=== PATIENT | male | born 1965 | race Caucasian/White ===

== ENCOUNTER 2017-02-17 17:52 | Emergency (ER) | payer BC ==
[~2017-02-17] VITALS: Ht 190.5 cm; Wt 103.4 kg
[~2017-02-17 17:52] MED LIST: ASPI81TA28 PO; METO-217 PO; PRLSR20 PO
[2017-02-17 17:55] VITALS: TEMP 37; Ht 190.5 cm; Wt 103.4 kg
[2017-02-17] MEDS ORDERED: SODIUM CHLORIDE 0.9% 1000ML 1,000 ML IV STA (18:12)
--- NOTE | 2017-02-17 18:42 | EMERGENCY ROOM VISIT NOTE ---
History Report prepared by Irasema: Mary Gandhi Under the Supervision of: Dr. Felton Krueger D.O. First contact with patient: 17:58 Chief Complaint: BACK PAIN Stated Complaint: LEFT SIDE, LOWER BACK PAIN History of Present Illness The patient is a 51 year old male who presents to the Emergency Room with complaints of constant back pain starting three days ago. The patient states that he had this back pain before, but not to this extent. The patient states that he drove a go kart with his nephew five days ago and played baseball four days ago. He states that he noticed the pain in the early afternoon three days ago. The patient reports that two days ago he mowed the lawn and the pain was still there. He states that last time it went away with rest and Motrin. He reports that nothing is helping it this time. He states he went to his PCP yesterday who prescribed him medication while continuing with the Motrin. He reports that nothing is touching the pain he has. The patient states that the pain is middle to left and feels deep. He states that it feels like it is from his lower hips to the middle of his ribs. He also complains of a sort of weakness in his legs. He states that sitting for long periods of time makes it worse and standing up makes it worse. He currently rates his pain as a 3/10 in severity. The patient notes that 3 years ago he had x-rays completed that showed issues in his lumbar region, but notes that they did not require surgery. The patient notes that there are random times that he will drive to work and his left leg will be completely "" for 10 to 15 minutes when he tries to get out of the vehicle. The patient denies constipation, numbness, hematuria, and dark urine. The patient notes that he was born with Tetralogy of Fallot, has had his aortic repaired, and a defibrillator installed and removed. He notes that he cannot have an MRI because the leads are still attached. The patient notes that he does not take any blood thinners besides a baby Aspirin daily. Source of History: patient Onset: three days ago Position: back (middle to left) Symptom Intensity: 3/10 Quality: other (radiating) Timing: constant Modifying Factors (Worsening): other (sitting for long periods of time, standing up) Associated Symptoms: + weakness, No urinary symptoms, No numbness Note: The patient complains of the pain being from his hips to the middle of his ribs and that his left leg will go "." The patient denies constipation. Review of Systems See HPI for pertinent positives & negatives. A total of 10 systems reviewed and were otherwise negative. Past Medical & Surgical Medical Problems: (1) History of aortic aneurysm (2) History of placement of internal cardiac defibrillator (3) History of Tetralogy of Fallot (4) Hx of reovl of internal cardiac defibrillator Surgical Problems: (1) History of orthopedic surgery (2) History of tetralogy of Fallot repair (3) Hx of hernia repair (4) Status post rotator cuff repair Family History Cancer Diabetes mellitus FH: heart disease FH: lung disease Gallbladder disease Heart disease Hypertension Lung disease Social History Smoking Status: Never Smoker Alcohol Use: occasionally Drug Use: none Marital Status: Housing Status: lives with family Occupation Status: employed Current/Historical Medications Scheduled Aspirin (Aspirin Ec), 81 MG PO DAILY Metoprolol Succinate (Toprol Xl), 50 MG PO DAILY Omeprazole (Prilosec), 40 MG PO DAILY Prednisone (Prednisone Tab), 40 MG PO DAILY Scheduled PRN Oxycodone Immediate Rel Tab (Roxicodone Ir), 1-2 TAB PO Q4H PRN for Severe Pain Allergies Coded Allergies: No Known Drug Allergy (Verified Allergy, ., 08/14/13) Uncoded Allergies: GENERAL ANESTHESIA (Allergy, Intermediate, COMBATIVE, 03/26/09) Physical Exam Vital Signs Date Time Temp Pulse Resp B/P (MAP) Pulse Ox O2 Delivery O2 Flow Rate FiO2 02/17/17 20:21 62 20 143/91 97 Room Air 02/17/17 19:19 74 20 163/105 98 Room Air 02/17/17 17:55 37.0 71 18 167/98 97 Room Air Physical Exam GENERAL: Patient is awake, alert, and somewhat anxious. Patient appears uncomfortable. EYES: The conjunctivae are clear. The pupils are round and reactive. EARS, NOSE, MOUTH AND THROAT: The nose is without any evidence of any deformity. Mucous membranes are moist tongue is midline NECK: The neck is nontender and supple. RESPIRATORY: Normal respiratory effort is noted there is no evidence of wheezing rhonchi or rales CARDIOVASCULAR: Regular rate and rhythm noted to auscultation. Prominent S2 noted to auscultation. No murmurs noted. GASTROINTESTINAL: The abdomen is soft and nondistended. Bowel sounds are present in all quadrants. Left lower quadrant abdominal pain to palpation, no guarding or rigidity noted. BACK: No midline tenderness to palpation. Range of motion appeared intact. MUSCULOSKELETAL/EXTREMITIES: There is no evidence of gross deformity full range of motion is noted in the hips and shoulders SKIN: There is no obvious evidence of any rash. There are no petechiae, pallor or cyanosis noted. NEUROLOGIC: Patient is awake alert and oriented x3 strength is symmetric patellar reflexes are 2+ bilaterally. Achilles tendon reflexes were 1+ and symmetric, great toe raise was symmetric. Medical Decision & Procedures ER Provider Diagnostic Interpretation: Radiology results as stated below per my review and radiologist interpretation: CT SCAN OF THE ABDOMEN AND PELVIS WITHOUT CONTRAST CLINICAL HISTORY: left flank pain COMPARISON STUDY: No previous studies for comparison. TECHNIQUE: CT scan of the abdomen and pelvis was performed from the lung bases to the proximal femurs. Images are reviewed in the axial, sagittal, and coronal planes. IV contrast was not administered for this examination. CT DOSE: 982.18 mGy.cm FINDINGS: Lower chest: There are mild dependent atelectatic changes present. Liver: The unenhanced liver is normal in size, contour, and attenuation. There is no intrahepatic biliary ductal dilatation. Gallbladder: Cholelithiasis Spleen: Normal in size and attenuation. Pancreas: Unremarkable. Adrenal glands: Unremarkable. Kidneys: There is a punctate nonobstructing lower pole right renal calculus. There is no hydronephrosis. No ureteral or bladder calculi are visualized. Bowel: There are no transition zones indicate bowel obstruction. The appendix appears normal. There is no acute diverticulitis. Peritoneum: There is no intraperitoneal free air or abdominal ascites. Vasculature: The abdominal aorta is normal in course and caliber. Adenopathy: None. Pelvic viscera: The bladder, and pelvic viscera are unremarkable. Skeletal structures: There is a benign femoral herniation pit within the left femoral neck. There is a bone island within the left femoral head. There are subchondral cystic changes within the left acetabulum. 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 There is a grade 1 spondylolisthesis of L5 on S1. IMPRESSION: 1. No evidence of bowel obstruction. No evidence of free air 2. Punctate nonobstructing right renal calculus. No ureteral or bladder calculi identified 3. Cholelithiasis 4. No evidence of acute appendicitis. No evidence of acute diverticulitis. Electronically signed by: Med Pickens M.D. 02/17/2017 7:15 PM Dictated Date/Time: 02/17/2017 7:11 PM Laboratory Results 02/17/17 18:30 Red Blood Count 4.86, Mean Corpuscular Volume 85.6, Mean Corpuscular Hemoglobin 30.2, Mean Corpuscular Hemoglobin Concent 35.3, Mean Platelet Volume 8.7, Neutrophils (%) (Auto) 35.4, Lymphocytes (%) (Auto) 49.4, Monocytes (%) (Auto) 11.8, Eosinophils (%) (Auto) 2.8, Basophils (%) (Auto) 0.3, Neutrophils # (Auto ) 1.38, Lymphocytes # (Auto) 1.92, Monocytes # (Auto) 0.46, Eosinophils # (Auto ) 0.11, Basophils # (Auto) 0.01 02/17/17 18:30 Test 02/17/17 18:15 02/17/17 18:30 Urine Color YELLOW Urine Appearance CLEAR (CLEAR) Urine pH 6.5 (4.5-7.5) Urine Specific [place] 1.017 (1.000-1.030) Urine Protein NEG (NEG) Urine Glucose (UA) NEG (NEG) Urine Ketones NEG (NEG) Urine Occult Blood NEG (NEG) Urine Nitrite NEG (NEG) Urine Bilirubin NEG (NEG) Urine Urobilinogen NEG (NEG) Urine Leukocyte Esterase NEG (NEG) White Blood Count 3.89 K/uL (4.8-10.8) Red Blood Count 4.86 M/uL (4.7-6.1) Hemoglobin 14.7 g/dL (14.0-18.0) Hematocrit 41.6 % (42-52) Mean Corpuscular Volume 85.6 fL (80-100) Mean Corpuscular Hemoglobin 30.2 pg (25-34) Mean Corpuscular Hemoglobin Concent 35.3 g/dl (32-36) Platelet Count 136 K/uL (130-400) Mean Platelet Volume 8.7 fL (7.4-10.4) Neutrophils (%) (Auto) 35.4 % Lymphocytes (%) (Auto) 49.4 % Monocytes (%) (Auto) 11.8 % Eosinophils (%) (Auto) 2.8 % Basophils (%) (Auto) 0.3 % Neutrophils # (Auto) 1.38 K/uL (1.4-6.5) Lymphocytes # (Auto) 1.92 K/uL (1.2-3.4) Monocytes # (Auto) 0.46 K/uL (0.11-0.59) Eosinophils # (Auto) 0.11 K/uL (0-0.5) Basophils # (Auto) 0.01 K/uL (0-0.2) RDW Standard Deviation 38.1 fL (36.4-46.3) RDW Coefficient of Variation 12.2 % (11.5-14.5) Immature Granulocyte % (Auto) 0.3 % Immature Granulocyte # (Auto) 0.01 K/uL (0.00-0.02) Anion Gap 5.0 mmol/L (3-11) Est Creatinine Clear Calc Drug Dose 115.1 ml/min Estimated GFR () 101.3 Estimated GFR (Non- 87.4 BUN/Creatinine Ratio 13.0 (10-20) Calcium Level 9.0 mg/dl (8.5-10.1) Total Bilirubin 0.4 mg/dl (0.2-1) Direct Bilirubin 0.1 mg/dl (0-0.2) Aspartate Amino Transf (AST/SGOT) 19 U/L (15-37) Alanine Aminotransferase (ALT/SGPT) 39 U/L (12-78) Alkaline Phosphatase 58 U/L (45-117) Total Protein 7.0 gm/dl (6.4-8.2) Albumin 4.1 gm/dl (3.4-5.0) Lipase 193 U/L (73-393) Laboratory results per my review. Medications Administered Medications (Trade) Dose Ordered Sig/Tashia Route Start Time Stop Time Status Last Admin Dose Admin Sodium Chloride 1,000 ml @ 999 mls/hr Q1H1M STAT IV 02/17/17 18:12 02/17/17 19:12 DC 02/17/17 18:41 999 MLS/HR Prednisone (PredniSONE TAB) 60 mg NOW STAT PO 02/17/17 20:04 02/17/17 20:05 DC 02/17/17 20:13 60 MG Oxycodone HCl (Roxicodone Immediate Rel 5MG Home Pack) 1 homepack UD ONCE PO 02/17/17 20:15 02/17/17 20:16 DC 02/17/17 20:13 1 HOMEPACK ED Course 1804: The patient was evaluated in room B4B. A complete history and physical examination were performed. 1811: Ordered NSS 1000 ml @ 999 mls/hr IV. 1958: Upon reevaluation, the patient is resting comfortably. I discussed the results and treatment plan with him. He verbalized agreement of the treatment plan. The patient was discharged home. Medical Decision Medication Reconciliation: I attest that I have personally reviewed the patient' s current medications list. Patient was found to have a slightly elevated blood pressure due to circumstances. I do not believe that the patient requires hypertension monitoring. Differential diagnosis: Etiologies such as musculoskeletal, disc herniation, fracture, aortic disease, metastatic disease, cord compression, discitis, infection, renal colic, gastrointestinal, acute exacerbation of chronic back pain, sciatica, cauda equina, as well as others were entertained. The patient is a 51-year-old male who presented to the emergency department for an evaluation of low back pain. The patient states that he's had similar back pain in the past but this back pain appears to be worsened in duration as well as intensity. The patient did not have any decreased patellar or Achilles tendon reflexes. He is able to walk without difficulty. His great toe raise was symmetric. The patient is unable to have an MRI because of previous surgical history. The patient was treated with IV fluids and steroids in the emergency department. He did not wish to have any pain medication. I discussed the patient 's laboratory and radiographic studies with him. I have recommended that he follow-up with his family doctor soon as possible and discussed the possibility that he may or need referral to a specialist for further management. I encouraged him to continue all medications as prescribed and return to the emergency department immediately if symptoms change worsen or the need arises. He did have some lower abdominal tenderness and I was unsure if this represented a kidney stone or possibly diverticulitis. The patient's CAT scan did not reveal signs of this however. The patient's urinalysis was not positive for infection. He was found have a slightly low white blood cell count but I am unsure of the significance at this time. I would recommend that he has this rechecked again with his primary care physician. [place] Drug Monitoring Program Search Results: no issues identified Impression Primary Impression: Musculoskeletal pain Additional Impression: Low back pain Scribe Attestation The scribe's documentation has been prepared under my direction and personally reviewed by me in its entirety. I confirm that the note above accurately reflects all work, treatment, procedures, and medical decision making performed by me. Departure Information Dispostion Home / Self-Care Prescriptions Prednisone (Prednisone Tab) 20 Mg Tab 40 MG PO DAILY, #10 TAB Prov: Felton Krueger, DO 02/17/17 Omeprazole (PRILOSEC) 40 Mg Cap 40 MG PO DAILY, #30 CAP Prov: Felton Krueger, DO 02/17/17 Oxycodone Immediate Rel Tab (ROXICODONE IR) 5 Mg Tab 1-2 TAB PO Q4H Y for Severe Pain, #24 TAB Prov: Felton Krueger, DO 02/17/17 Referrals Sofie Burgess M.D. (PCP) Forms HOME CARE DOCUMENTATION FORM, IMPORTANT VISIT INFORMATION Patient Instructions My [facility] Additional Instructions Call your family to schedule a follow-up appointment. Rest and avoid any strenuous activity. Continue all medications as prescribed. Continue using Tylenol and other [id number] pain medications for mild pain. Discussed the possibility with your family the may require referral to a specialist if symptoms do not improve. Problem Qualifiers Additional Impression: Low back pain Chronicity: acute Back pain laterality: midline Sciatica presence: without sciatica Qualified Codes: M54.5 - Low back pain
[2017-02-17 18:47] LABS: BASO % 0.3 %; BASO ABS # 0.01 K/uL (0-0.2); COMPLETE YES; EOS % 2.8 %; HEMATOCRIT 41.6 % (42-52); IG% 0.3 %; LYMPH % 49.4 %; LYMPH ABS # 1.92 K/uL (1.2-3.4); MEAN CELL VOLUME 85.6 fL (80-100); MEAN CORPUSCULAR HEMOGLOBIN 30.2 pg (25-34); MEAN CORPUSCULAR HGB CONC 35.3 g/dl (32-36); MEAN PLATELET VOLUME 8.7 fL (7.4-10.4); MONO % 11.8 %; NEUT % 35.4 %; PLATELET COUNT 136 K/uL (130-400); RED BLOOD COUNT 4.86 M/uL (4.7-6.1); WHITE BLOOD COUNT 3.89 K/uL (4.8-10.8)
[2017-02-17 19:04] LABS: POTASSIUM 4.4 mmol/L (3.5-5.1)
--- NOTE | 2017-02-17 19:16 | DIAGNOSTIC IMAGING REPORT ---
CT SCAN OF THE ABDOMEN AND PELVIS WITHOUT CONTRAST CLINICAL HISTORY: left flank pain COMPARISON STUDY: No previous studies for comparison. TECHNIQUE: CT scan of the abdomen and pelvis was performed from the lung bases to the proximal femurs. Images are reviewed in the axial, sagittal, and coronal planes. IV contrast was not administered for this examination. CT DOSE: 982.18 mGy.cm FINDINGS: Lower chest: There are mild dependent atelectatic changes present. Liver: The unenhanced liver is normal in size, contour, and attenuation. There is no intrahepatic biliary ductal dilatation. Gallbladder: Cholelithiasis Spleen: Normal in size and attenuation. Pancreas: Unremarkable. Adrenal glands: Unremarkable. Kidneys: There is a punctate nonobstructing lower pole right renal calculus. There is no hydronephrosis. No ureteral or bladder calculi are visualized. Bowel: There are no transition zones indicate bowel obstruction. The appendix appears normal. There is no acute diverticulitis. Peritoneum: There is no intraperitoneal free air or abdominal ascites. Vasculature: The abdominal aorta is normal in course and caliber. Adenopathy: None. Pelvic viscera: The bladder, and pelvic viscera are unremarkable. Skeletal structures: There is a benign femoral herniation pit within the left femoral neck. There is a bone island within the left femoral head. There are subchondral cystic changes within the left acetabulum. 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 There is a grade 1 spondylolisthesis of L5 on S1. IMPRESSION: 1. No evidence of bowel obstruction. No evidence of free air 2. Punctate nonobstructing right renal calculus. No ureteral or bladder calculi identified 3. Cholelithiasis 4. No evidence of acute appendicitis. No evidence of acute diverticulitis. Electronically signed by: Med Pickens M.D. 02/17/2017 7:15 PM Dictated Date/Time: 02/17/2017 7:11 PM
[2017-02-17 19:28] LABS: URINE APPEARANCE CLEAR (CLEAR); URINE BILIRUBIN NEG (NEG); URINE COLOR YELLOW; URINE NITRITE NEG (NEG); URINE PH 6.5 (4.5-7.5); URINE SPECIFIC GRAVITY 1.017 (1.000-1.030); UROBILINOGEN NEG (NEG)
[2017-02-17 19:36] LABS: MANUAL MICROSCOPIC REQUIRED? NO; REVIEW REQ? NO
[2017-02-17] MEDS ORDERED: OMEP40CA41 PO (20:05)
[2017-02-17] MEDS ORDERED: OXYC1TAB3 PO (20:05)
[2017-02-17] MEDS ORDERED: PRED20TA2 PO (20:05)
[2017-02-17] MEDS ORDERED: OXYCODONE IR HOME PACK PO ONE (20:15)
[2017-02-17 20:21] VITALS: BP 143/91; PULSE 62; O2SAT 97
== END 2017-02-17 20:21 | disposition home or self-care (01) ==
LOC: C.EDB 17:53
DX: M54.5 Low back pain (principal); Z79.82 Long term (current) use of aspirin; Z80.9 Family history of malignant neoplasm, unspecified; Z83.3 Family history of diabetes mellitus; Z82.49 Family history of ischemic heart disease and other diseases of the circulatory system; Z79.899 Other long term (current) drug therapy

== ENCOUNTER 2018-12-24 14:03 | Observation (INO) ==
[2018-12-24] MEDS ORDERED: FAMOTIDINE 20MG/5ML IV PUSH IV STA (15:05)
[2018-12-24] MEDS ORDERED: ALUMINUM/MAGNESIUM SUSP 30 ML UDC PO STA (15:05)
[2018-12-24 15:43] LABS: Eosinophils # (auto) 0.09 K/uL (0-0.5); Eosinophils % (auto) 1.8 %; Hematocrit (blood only) 41.8 % (42-52); Immature Granulocytes # (auto) 0.04 K/uL (0.00-0.02); Immature Granulocytes % (auto) 0.8 %; Lymphocytes # (auto) 1.61 K/uL (1.2-3.4); Lymphocytes % (auto) 32.3 %; Mean Corpuscular Hgb Conc 35.9 g/dL (32-36); Mean Corpuscular Volume 85.8 fL (80-100); Mean Platelet Volume 8.9 fL (7.4-10.4); Monocytes # (auto) 0.62 K/uL (0.11-0.59); Monocytes % (auto) 12.4 %; Neutrophils # (auto) 2.63 K/uL (1.4-6.5); Neutrophils % (auto) 52.7 %; Platelet Count 159 K/uL (130-400); RDW Coefficient of Variation 12.6 % (11.5-14.5); RDW Standard Deviation 39.4 fL (36.4-46.3); Red Blood Count 4.87 M/uL (4.7-6.1); White Blood Count 4.99 K/uL (4.8-10.8)
--- NOTE | 2018-12-24 15:56 | XRay Report ---
XR chest 1V portable CLINICAL HISTORY: Atypical chest pain COMPARISON STUDY: September 2013 FINDINGS: There are residual leads from a left subclavian pacer/defibrillator. There are postsurgical changes of a midline sternotomy. The heart is enlarged. There is no failure. There is no focal pulmo nary consolidation. There are no pleural effusions. Chronic changes involve the left humeral head.[ IMPRESSION: No active disease in the chest. Electronically signed by: Med Pickens M.D. 12/24/2018 3:54 PM
[2018-12-24 16:04] LABS: D Dimer 610 ug/L FEU (0-500)
[2018-12-24 16:07] LABS: Alanine Aminotransferase 42 U/L (12-78); Albumin Level 3.7 gm/dl (3.4-5.0); Aspartate Aminotransferase 17 U/L (15-37); BUN Creatinine Ratio 17.3 (10-20); Blood Urea Nitrogen 22 mg/dl (7-18); Calcium 8.7 mg/dl (8.5-10.1); Carbon Dioxide 29 mmol/L (21-32); Chloride 106 mmol/L (98-107); Creatinine Clr Calc Pharmacy 89.1 ml/min; Est GFR (Non-African American) 66.4; Glucose 95 mg/dl (70-99); Magnesium 2.2 mg/dl (1.8-2.4); Potassium 4.4 mmol/L (3.5-5.1); Sodium 140 mmol/L (136-145)
[2018-12-24 16:12] LABS: Albumin Globulin Ratio 1.2 (0.9-2); Alkaline Phosphatase 58 U/L (45-117); Bilirubin,Total 0.5 mg/dl (0.2-1); NT Pro B Type Natriuretic Pept 114 pg/ml (0-900); Total Protein 6.7 gm/dl (6.4-8.2); Troponin I < 0.015 ng/ml (0-0.045)
[2018-12-24] MEDS ORDERED: OPTIRAY 320 125ml IV PRN (16:53)
--- NOTE | 2018-12-24 17:07 | CT Scan Report ---
CT ANGIOGRAM OF THE CHEST CLINICAL HISTORY: Unexplained tachycardia. Atypical chest pain. Possible pulmonary embolism. COMPARISON STUDY: Chest x-ray dated 12/24/2018 TECHNIQUE: Following the IV administration of 117 mL of Optiray-320, CT angiogram of the thorax was p erformed from the thoracic inlet to the lung bases utilizing the pulmonary embolus protocol. Images a re reviewed in the axial, sagittal, and coronal planes. IV contrast was administered without complica tion. MIP imaging was performed. A dose lowering technique was utilized adhering to the principles o f ALARA. CT DOSE: 474.29 mGy.cm FINDINGS: No pathologically enlarged axillary mediastinal or hilar lymph nodes were visualized. There is no evidence for aneurysm. There appears to be a tubular communication with the superior vena cava. Correlation with prior surgical history is recommended. There were no pulmonary artery filling defects to indicate acute pulmonary embolism. No pleural effusions are visualized. Intracardiac pacemaker leads are visualized. IMPRESSION: 1. No evidence of acute pulmonary embolism 2. No evidence of acute rectal consolidation 3. 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 This is likely eit her postsurgical or developmental. Electronically signed by: Med Pickens M.D. 12/24/2018 5:05 PM
[2018-12-24] MEDS ORDERED: SODIUM CHLORIDE 0.9% 500 ML IV ONE (17:39)
[2018-12-24] MEDS ORDERED: KETOROLAC TROMETHAMINE 15 MG/ML VIAL IV STA (17:39)
[2018-12-24] MEDS ORDERED: NITROGLYCERIN 2% OINTMENT 30GM TUBE EXT STA (18:02)
--- NOTE | 2018-12-24 18:40 | History & Physical Report ---
Date of Service December 24, 2018 Assessment & Plan (1) Chest pain: -Admit to telemetry -Patient presenting with reports of "bounding" heartbeat/palpitations -Troponin negative, EKG demonstrates RBBB and inverted T waves in the anterior leads -Noted to be hypertensive with BP 173/96, improving after topical nitroglycerin -Symptoms possibly due to hypertensive urgency and/or recent use of prednisone however will rule out ACS -Risk factors: Positive family history, dyslipidemia -Continue cycle cardiac enzymes, check resting echo -Check lipids in a.m. -PRN nitro and EKG with further episodes of chest pain -Cardiology consult, input appreciated (2) Hypertensive urgency: -As above, hypertensive on arrival with improvement after topical nitro -Possibly due to recent use of prednisone -Continue home dose of metoprolol for now, further adjustments as per cardiology's recommendations (3) History of ventricular tachycardia: -Continue beta-deya -History of AICD however electively removed as per patient request secondary to inappropriate firing (4) History of tetralogy of Fallot repair: (5) Status post aortic aneurysm repair: (6) Status post aortic valve repair: -Checking echo (7) DVT prophylaxis: -SCDs, ambulate History of Present Illness Chief Complaint: Chest pain Primary Care Provider: Sofie Burgess MD 53-year-old male who presents the ED with chest pain. Patient reports his symptoms began a couple of days ago. He reports he chronically has a " bounding" heartbeat and can frequently feel his heart beating. The symptom has been worse over the past few days and acutely worsening last evening waking him out of sleep. Symptoms are worse with exertion. He reports associated mild exertional shortness of breath and lightheadedness. He denies chest pain and pressure. No diaphoresis or syncopal event. He denies abdominal pain, nausea, vomiting, diarrhea. No other recent illnesses, fevers, chills. He denies any urinary symptoms. On 12/18, patient was given a prednisone taper for management of back pain. Patient also reports he was hypertensive during that outpatient office visit. Upon arrival to the ER, initial BP is 173/96. Initial troponin is negative. EKG demonstrates RBBB and inverted T waves in the anterior leads. Patient was given Maalox and Pepcid without improvement in his symptoms. He reports mild improvement after application of topical nitroglycerin 0.5 inch. D-dimer was elevated and CTA chest was negative for pulmonary embolism. Allergies Allergy/AdvReac Type Severity Reaction Status Date / Time No Known Drug Allergies Allergy . Verified 08/14/13 06:59 GENERAL ANESTHESIA Allergy Intermediate COMBATIVE Uncoded 12/24/18 15:14 Home Medications Home Medications Medication Instructions Recorded Confirmed Type acetaminophen [Tylenol Extra 1,000 mg PO Q6H PRN 12/24/18 12/24/18 History Strength] aspirin [Aspir-Low] 81 mg PO DAILY 12/24/18 12/24/18 History cyclobenzaprine 10 mg PO BID PRN 12/24/18 12/24/18 History ibuprofen [Advil] 400 mg PO Q6H PRN 12/24/18 12/24/18 History metoprolol succinate [Toprol XL] 50 mg PO DAILY 12/24/18 12/24/18 History multivitamin 1 tab PO DAILY 12/24/18 12/24/18 History prednisone 10 mg PO UD 12/24/18 12/24/18 History Past Med/Surg History Medical History History of ventricular tachycardia (Chronic) Dyslipidemia (Chronic) History of aortic aneurysm (Resolved) History of placement of internal cardiac defibrillator (Chronic) S/P removal, per patient request for inappropriate firing Surgical History Status post aortic valve repair (Chronic) Status post aortic aneurysm repair (Chronic) s/p aortic valve repair and aortic root replacement with ascending aortic and hemiarch replacement S/P tendon repair (Chronic) Left biceps H/O repair of right rotator cuff (Chronic) History of tetralogy of Fallot repair (Chronic) Status post rotator cuff repair (Chronic) Family History Father Sudden , Onset Age: 60 Cardiomyopathy Mother Diabetes Aunt Sudden , Onset Age: 45 Social History Preferred Language: Polish Communication Ability: Effective Program Proposals Coordinator Required: No Beliefs That Will Affect Care: None Current Living Situation: Spouse and Family Other Information That Helps Us Care for You: No Feels Safe at Home: Yes Safety Concerns: Feels Safe At This Time Smoking Status: Never smoker Hx Alcohol Use: Yes Alcohol type: beer and wine Hx Substance Use: No Review of Systems Review of Systems: ROS per HPI, all other systems reviewed and negative Physical Exam Physical Exam: Please refer to Dr. Severino's addendum for physical exam. Results & Data Vital Signs (Past 12 Hours) Vital Signs Temp Pulse Pulse Resp BP BP Pulse Ox 12/24/18 18:00 63 16 150/93 H 98 12/24/18 16:03 62 16 135/91 95 12/24/18 14:07 36.7 C 71 17 173/96 H 97 Laboratory Results Laboratory Last Values WBC 4.99 K/uL (4.8-10.8) 12/24/18 15:35 RBC 4.87 M/uL (4.7-6.1) 12/24/18 15:35 Hgb 15.0 g/dL (14.0-18.0) 12/24/18 15:35 Hct 41.8 % (42-52) L 12/24/18 15:35 MCV 85.8 fL (80-100) 12/24/18 15:35 MCH 30.8 pg (25-34) 12/24/18 15:35 MCHC 35.9 g/dL (32-36) 12/24/18 15:35 RDW Std Deviation 39.4 fL (36.4-46.3) 12/24/18 15:35 RDW Coeff of Ama 12.6 % (11.5-14.5) 12/24/18 15:35 Plt Count 159 K/uL (130-400) 12/24/18 15:35 MPV 8.9 fL (7.4-10.4) 12/24/18 15:35 Immature Gran % (Auto) 0.8 % 12/24/18 15:35 Neut % (Auto) 52.7 % 12/24/18 15:35 Lymph % (Auto) 32.3 % 12/24/18 15:35 [place] % (Auto) 12.4 % 12/24/18 15:35 Eos % (Auto) 1.8 % 12/24/18 15:35 Baso % (Auto) 0.0 % 12/24/18 15:35 Immature Gran # (Auto) 0.04 K/uL (0.00-0.02) H 12/24/18 15:35 Neut # (Auto) 2.63 K/uL (1.4-6.5) 12/24/18 15:35 Lymph # (Auto) 1.61 K/uL (1.2-3.4) 12/24/18 15:35 [place] # (Auto) 0.62 K/uL (0.11-0.59) H 12/24/18 15:35 Eos # (Auto) 0.09 K/uL (0-0.5) 12/24/18 15:35 Baso # (Auto) 0.00 K/uL (0-0.2) 12/24/18 15:35 D-Dimer 610 ug/L FEU (0-500) H* 12/24/18 15:35 Sodium 140 mmol/L (136-145) 12/24/18 15:35 Potassium 4.4 mmol/L (3.5-5.1) 12/24/18 15:35 Chloride 106 mmol/L (98-107) 12/24/18 15:35 Carbon Dioxide 29 mmol/L (21-32) 12/24/18 15:35 Anion Gap 5.0 (3-11) 12/24/18 15:35 BUN 22 mg/dl (7-18) H 12/24/18 15:35 Creatinine 1.24 mg/dl (0.6-1.4) 12/24/18 15:35 Est Cr Clr Drug Dosing 89.1 ml/min 12/24/18 15:35 Est GFR ( Amer) 77.0 12/24/18 15:35 Est GFR (Non-Af Amer) 66.4 12/24/18 15:35 BUN/Creatinine Ratio 17.3 (10-20) 12/24/18 15:35 Glucose 95 mg/dl (70-99) 12/24/18 15:35 Calcium 8.7 mg/dl (8.5-10.1) 12/24/18 15:35 Magnesium 2.2 mg/dl (1.8-2.4) 12/24/18 15:35 Total Bilirubin 0.5 mg/dl (0.2-1) 12/24/18 15:35 AST 17 U/L (15-37) 12/24/18 15:35 ALT 42 U/L (12-78) 12/24/18 15:35 Alkaline Phosphatase 58 U/L (45-117) 12/24/18 15:35 Troponin I < 0.015 ng/ml (0-0.045) 12/24/18 15:35 NT-Pro-B Natriuret Pep 114 pg/ml (0-900) 12/24/18 15:35 Total Protein 6.7 gm/dl (6.4-8.2) 12/24/18 15:35 Albumin 3.7 gm/dl (3.4-5.0) 12/24/18 15:35 Globulin 3.0 gm/dl (2.5-4.0) 12/24/18 15:35 Albumin/Globulin Ratio 1.2 (0.9-2) 12/24/18 15:35 Diagnostic Findings CXR IMPRESSION: No active disease in the chest. CTA CHEST IMPRESSION: 1. No evidence of acute pulmonary embolism 2. No evidence of acute rectal consolidation 3. 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 This is likely either postsurgical or developmental. ADDENDUM Addendum: There is a voice recognition error in the impression. Impression #2, should read as follows: 2. No evidence of acute PARENCHYMAL consolidation. Code Status & VTE Plan VTE Prophylaxis Plan VTE Prophylaxis will be ordered: Yes Supervising Physician Co-Signing Physician Notes Patient is 53 yr male who presents with chest pain which he describes as tightness of upper chest/lower neck, non radiating, associated with dizziness, palpitations, non radiating, worsens with exertion since couple of days. He observed to have elevated blood pressure since last few days. Topical NTG started in ED slightly improved the symptoms. Please review HPI for complete details of presentation. He was noted to have have elevated d-dimer and CTA is negative for PE. Patient denies any calf pain, leg swelling. His initial Troponin is negative and EKG showed T wave inversion in anterior leads. BP improved with NTG. Physical Exam: Vitals signs as noted above General Appearance:Well built and nourished, no apparent distress Head: normocephalic, Atraumatic Eyes: normal inspection, EOMI Neck: supple, Trachea midline Respiratory/Chest: Normal breath sounds, CTA Cardiovascular: S1, S2, No murmur,+ click Chest: erythematous rash-skin folds, pacer leads palpable on left side of chest Abdomen/GI:Soft, Non tender, Bowel sounds present Extremities/Musculoskelatal:normal inspection, no edema Neurologic/Psych:AAOX3, grossly no focal neurological deficits Skin: normal color, warm, vertical well healed surgical scar on chest Chest Pain: R/O ACS Could be related to uncontrolled HTN Initial troponin:Negative EKG shows: T wave inversion in anterior leads, RBBB CTA: No PE, Consolidation Trend serial cardiac enzymes, repeat EKG, TSH, fasting lipid panel in AM Continue Aspirin, Metoprolol Oxygen PRN , NTG PRN NPO after midnight Cardiology consulted Will adjust HTN meds as needed Consider Heparin drip if troponin trends up Monitor in Tele for arrhythmias I personally reviewed the record. Patient is interviewed and examined at bedside. Patient's care is coordinated with Torrie Martell FINE GRADE OPERATOR. Please refer to the documentation above for details of patient's presentation and for discussion of other issues.
[2018-12-24] MEDS ORDERED: NITROGLYCERIN SL 0.4 MG/TAB TAB SL PRN (19:21)
[2018-12-24] MEDS ORDERED: ACETAMINOPHEN 325 MG TAB PO PRN (19:21)
[2018-12-24] MEDS ORDERED: CYCLOBENZAPRINE HCL 10 MG TAB PO PRN (19:30)
[2018-12-25 03:02] LABS: Hematocrit (blood only) 42.3 % (42-52); Hemoglobin 14.8 g/dL (14.0-18.0); Mean Corpuscular Volume 86.2 fL (80-100); Mean Platelet Volume 8.5 fL (7.4-10.4); Platelet Count 135 K/uL (130-400); RDW Coefficient of Variation 12.6 % (11.5-14.5); RDW Standard Deviation 39.9 fL (36.4-46.3); Red Blood Count 4.91 M/uL (4.7-6.1); White Blood Count 5.23 K/uL (4.8-10.8)
[2018-12-25] MEDS ORDERED: PROMETHAZINE HCL 12.5 MG in SODIUM CHLORIDE 0.9% 50 ML IV PRN (03:04)
[2018-12-25] MEDS ORDERED: METOPROLOL SUCC 25MG EXT REL TAB PO STA (03:05)
[2018-12-25] MEDS ORDERED: LORazepam 0.25 MG/0.5 ML VIAL IV PRN (03:10)
[2018-12-25] MEDS ORDERED: TRAMADOL HCL 50 MG TABLET PO PRN (03:11)
[2018-12-25 03:18] LABS: BUN Creatinine Ratio 22.5 (10-20); Blood Urea Nitrogen 22 mg/dl (7-18); Calcium 8.5 mg/dl (8.5-10.1); Carbon Dioxide 29 mmol/L (21-32); Chloride 108 mmol/L (98-107); Creatinine Clr Calc Pharmacy 113.4 ml/min; Est GFR (African American) 99.8; Est GFR (Non-African American) 86.2; Glucose 118 mg/dl (70-99); Potassium 4.3 mmol/L (3.5-5.1); Sodium 142 mmol/L (136-145)
[2018-12-25 03:30] LABS: Chol HDL Ratio 4; Cholesterol 188 mg/dl (0-200); HDL Cholesterol 46 mg/dl; LDL Cholesterol Calculated 115 mg/dl; Triglycerides 133 mg/dl (0-150); Troponin I < 0.015 ng/ml (0-0.045); VLDL Cholesterol 27 mg/dl
[2018-12-25 06:12] LABS: Estimated Average Glucose 123 mg/dl; Hemoglobin A1C 5.9 % (4.5-5.6)
--- NOTE | 2018-12-25 08:25 | Cardiology Consultation ---
Date of Consultation December 25, 2018 Assessment & Plan (1) Hypertensive urgency: Symptoms resolved overnight with addition of Nitropaste. Blood pressure improved. Nitropaste discontinued. Recommend addition of lisinopril 5 mg daily. Resting 2D transthoracic echocardiogram pending at this time. Cardiac enzymes are undetectable without evidence of acute coronary syndrome. I suspect hypertensive urgency precipitated by recent prescription of corticosteroids. Patient recently treated for sciatic pain. Recommend exercise stress echocardiography when able to adequately ambulate on treadmill and blood pressure control. This will likely be performed in the outpatient setting at the time of cardiology follow-up. (2) Palpitation: No dysrhythmias on telemetry. Likely secondary to cardiac awareness in the setting of uncontrolled hypertension/corticosteroid use. (3) History of ventricular tachycardia: No recurrence on telemetry. ICD previously removed due to inappropriate shocks. ICD leads remain in place. (4) Status post aortic valve repair: 2D echocardiogram pending (5) Status post aortic aneurysm repair: No evidence of recurrent aneurysm per repeat CT Elaine Dwight of the chest. No evidence of pulmonary embolus. History of Present Illness Reason for Consultation: Palpitations, hypertension Requesting Physician: Torrie CHURCHILL Attending Physician: Gregorio Severino MD History of Present Illness 53-year-old patient with history of tetralogy of flow repair at age 6 and a sending aortic replacement with aortic valve repair in 2007 presented emergency department with palpitations and chest discomfort. Patient describes a pounding in his chest which began Tuesday evening and woke him from sleep. Recent history significant for sciatic pain prompting prescription of prednisone taper. Symptoms began on Tuesday with intermittent chest pounding and palpitations. Noted intermittent lightheadedness as well. Patient presented to the emergency department was noted to be hypertensive. ECG unremarkable demonstrating a right bundle branch block which is unchanged from prior ECGs. He was admitted for observation overnight. CT angiogram of the chest negative for PE or dissection. Resting 2D transthoracic echocardiogram is pending at this time. Cardiac enzymes are undetectable. Currently, patient is resting comfortably. Previously reported palpitations have resolved. His blood pressure has not improved overnight. Initially treated with half an inch of Nitropaste which was removed. Allergies Allergy/AdvReac Type Severity Reaction Status Date / Time No Known Drug Allergies Allergy . Verified 08/14/13 06:59 GENERAL ANESTHESIA Allergy Intermediate COMBATIVE Uncoded 12/24/18 15:14 Home Medications Home Medications Medication Instructions Recorded Confirmed Type acetaminophen [Tylenol Extra 1,000 mg PO Q6H PRN 12/24/18 12/24/18 History Strength] aspirin [Aspir-Low] 81 mg PO DAILY 12/24/18 12/24/18 History cyclobenzaprine 10 mg PO BID PRN 12/24/18 12/24/18 History ibuprofen [Advil] 400 mg PO Q6H PRN 12/24/18 12/24/18 History metoprolol succinate [Toprol XL] 50 mg PO DAILY 12/24/18 12/24/18 History multivitamin 1 tab PO DAILY 12/24/18 12/24/18 History prednisone 10 mg PO UD 12/24/18 12/24/18 History Patient History Medical History History of ventricular tachycardia (Chronic) Dyslipidemia (Chronic) History of aortic aneurysm (Resolved) History of placement of internal cardiac defibrillator (Chronic) S/P removal, per patient request for inappropriate firing Surgical History Status post aortic valve repair (Chronic) Status post aortic aneurysm repair (Chronic) s/p aortic valve repair and aortic root replacement with ascending aortic and hemiarch replacement S/P tendon repair (Chronic) Left biceps H/O repair of right rotator cuff (Chronic) History of tetralogy of Fallot repair (Chronic) Status post rotator cuff repair (Chronic) Family History Father Sudden , Onset Age: 60 Cardiomyopathy Mother Diabetes Aunt Sudden , Onset Age: 45 Social History Preferred Language: Algerian Communication Ability: Effective Production Recovery Operator Required: No Beliefs That Will Affect Care: None Current Living Situation: Spouse and Family Other Information That Helps Us Care for You: No Feels Safe at Home: Yes Safety Concerns: Feels Safe At This Time Smoking Status: Never smoker Hx Alcohol Use: Yes Alcohol type: beer and wine Hx Substance Use: No Review of Systems Review of Systems: All systems reviewed & are unremarkable except as noted in HPI & below Physical Exam Physical Exam: General: NAD, AAO x3, well nourished. Healthy-appearing. HEENT: Normocephalic. Atraumatic. Conjunctiva pink, no scleral icterus. Neck: No carotid bruits, the carotid upstrokes are brisk. No JVD. No HJR Heart: Heart sounds audible posteriorly. Regular rhythm with normal S-1 and S-2 no S-3 or S- 4 gallop. 1/4 systolic ejection murmur heard at the cardiac base without radiation. PMI is not displaced. No RV heave. Lungs: Clear bilateral without rales , rhonchi, or wheeze. Abdomen: Normal bowel sounds. Soft. Nontender. No masses or organomegaly. No abdominal bruits. Extremities: No clubbing, cyanosis, or edema. Pulses: radial=2/4, Dorsalis pedis =2/4, posterior tibial=2/4. Neuro: Cranial nerves grossly intact. No focal motor deficit. Results & Data Vital Signs (Past 12 Hours) Vital Signs Temp Pulse Resp BP Pulse Ox 12/25/18 07:39 36.7 C 71 17 139/90 94 12/25/18 02:33 36.5 C 65 16 161/92 H 95 12/24/18 22:58 36.8 C 62 18 132/77 95 Laboratory Results Laboratory Results - last 24 hr 12/24/18 12/24/18 12/24/18 15:35 15:35 15:35 WBC 4.99 RBC 4.87 Hgb 15.0 Hct 41.8 L MCV 85.8 MCH 30.8 MCHC 35.9 RDW Std Deviation 39.4 RDW Coeff of Ama 12.6 Plt Count 159 MPV 8.9 Immature Gran % (Auto) 0.8 Neut % (Auto) 52.7 Lymph % (Auto) 32.3 [place] % (Auto) 12.4 Eos % (Auto) 1.8 Baso % (Auto) 0.0 Immature Gran # (Auto) 0.04 H Neut # (Auto) 2.63 Lymph # (Auto) 1.61 [place] # (Auto) 0.62 H Eos # (Auto) 0.09 Baso # (Auto) 0.00 D-Dimer 610 H* Sodium 140 Potassium 4.4 Chloride 106 Carbon Dioxide 29 Anion Gap 5.0 BUN 22 H Creatinine 1.24 Est Cr Clr Drug Dosing 89.1 Est GFR ( Amer) 77.0 Est GFR (Non-Af Amer) 66.4 BUN/Creatinine Ratio 17.3 Glucose 95 POC Glucose Estimat Average Glucose Hemoglobin A1c Calcium 8.7 Magnesium 2.2 Total Bilirubin 0.5 AST 17 ALT 42 Alkaline Phosphatase 58 Troponin I < 0.015 NT-Pro-B Natriuret Pep 114 Total Protein 6.7 Albumin 3.7 Globulin 3.0 Albumin/Globulin Ratio 1.2 Triglycerides Cholesterol LDL Cholesterol, Calc VLDL Cholesterol, Calc HDL Cholesterol Cholesterol/HDL Ratio TSH 12/24/18 12/25/18 12/25/18 20:50 02:22 02:51 WBC RBC Hgb Hct MCV MCH MCHC RDW Std Deviation RDW Coeff of Ama Plt Count MPV Immature Gran % (Auto) Neut % (Auto) Lymph % (Auto) [place] % (Auto) Eos % (Auto) Baso % (Auto) Immature Gran # (Auto) Neut # (Auto) Lymph # (Auto) [place] # (Auto) Eos # (Auto) Baso # (Auto) D-Dimer Sodium 142 Potassium 4.3 Chloride 108 H Carbon Dioxide 29 Anion Gap 5.0 BUN 22 H Creatinine 1.00 Est Cr Clr Drug Dosing 113.4 Est GFR ( Amer) 99.8 Est GFR (Non-Af Amer) 86.2 BUN/Creatinine Ratio 22.5 H Glucose 118 H POC Glucose 100 H Estimat Average Glucose Hemoglobin A1c Calcium 8.5 Magnesium Total Bilirubin AST ALT Alkaline Phosphatase Troponin I < 0.015 < 0.015 NT-Pro-B Natriuret Pep Total Protein Albumin Globulin Albumin/Globulin Ratio Triglycerides 133 Cholesterol 188 LDL Cholesterol, Calc 115 VLDL Cholesterol, Calc 27 HDL Cholesterol 46 Cholesterol/HDL Ratio 4 TSH 1.610 12/25/18 12/25/18 02:51 02:51 WBC 5.23 RBC 4.91 Hgb 14.8 Hct 42.3 MCV 86.2 MCH 30.1 MCHC 35.0 RDW Std Deviation 39.9 RDW Coeff of Ama 12.6 Plt Count 135 MPV 8.5 Immature Gran % (Auto) Neut % (Auto) Lymph % (Auto) [place] % (Auto) Eos % (Auto) Baso % (Auto) Immature Gran # (Auto) Neut # (Auto) Lymph # (Auto) [place] # (Auto) Eos # (Auto) Baso # (Auto) D-Dimer Sodium Potassium Chloride Carbon Dioxide Anion Gap BUN Creatinine Est Cr Clr Drug Dosing Est GFR ( Amer) Est GFR (Non-Af Amer) BUN/Creatinine Ratio Glucose POC Glucose Estimat Average Glucose 123 Hemoglobin A1c 5.9 H Calcium Magnesium Total Bilirubin AST ALT Alkaline Phosphatase Troponin I NT-Pro-B Natriuret Pep Total Protein Albumin Globulin Albumin/Globulin Ratio Triglycerides Cholesterol LDL Cholesterol, Calc VLDL Cholesterol, Calc HDL Cholesterol Cholesterol/HDL Ratio TSH ECG Rhythm: normal sinus Findings: + RBBB Additional Comments: LVH
[2018-12-25] MEDS ORDERED: MULTIVITAMIN TAB PO SCH (09:00)
[2018-12-25] MEDS ORDERED: ASPIRIN 81 MG ECTAB PO SCH (09:00)
[2018-12-25] MEDS ORDERED: LISINOPRIL 5 MG TAB PO SCH (09:00)
[2018-12-25] MEDS ORDERED: METOPROLOL SUCC 50MG EXT REL TAB PO SCH (09:00)
--- NOTE | 2018-12-25 12:30 | Hospitalist Progress Note ---
Date of Service December 25, 2018 Assessment & Plan (1) Chest pain: Chest Pain: R/O ACS Could be related to uncontrolled HTN induced by recent Corticosteroid use for sciatic pain Troponin X 3:Negative EKG shows: T wave inversion in anterior leads, RBBB CTA: No PE, Consolidation TSH: Normal lipid panel:WNL A1C:5.9 ECHO: EF:55-60%, LV wall motion normal, Severe concentric LVH Continue Aspirin, Metoprolol Added Lisinopril 5mg daily Tele:No dysrhythmias on telemetry as per Cards Appreciate Cardiology Input Planned to get Exercise Stress test as outpatient Symptoms currently resolved Needs FU with Cardiology upon discharge (2) Hypertensive urgency: Likely induced by Recent Corticosteroid use Continue Metoprolol Added Lisinopril Monitor (3) History of ventricular tachycardia: Continue beta-deya History of AICD however electively removed as per patient request secondary to inappropriate firing (4) History of tetralogy of Fallot repair: (5) Status post aortic aneurysm repair: (6) Status post aortic valve repair: ECHO reviewed (7) DVT prophylaxis: SCDs, ambulate Subjective Patient is seen and examined at bedside Complains of mild headache, improving with Tylenol Otherwise doing well this morning Chest tightness, dizziness resolved Denies any shortness of breath, dizziness, nausea Offers no other complaints Plan to be discharged home today. Review of Systems Review of Systems: All systems reviewed & are unremarkable except as noted in HPI & below Physical Exam Physical Exam: Physical Exam: Vitals signs as noted above General Appearance:Well built and nourished, no apparent distress Head: normocephalic, Atraumatic Eyes: normal inspection, EOMI Neck: supple, Trachea midline Respiratory/Chest: Normal breath sounds, CTA Cardiovascular: S1, S2, + murmur Chest: erythematous rash-skin folds, pacer leads palpable on left side of chest Abdomen/GI:Soft, Non tender, Bowel sounds present Extremities/Musculoskelatal:normal inspection, no edema Neurologic/Psych:AAOX3, grossly no focal neurological deficits Skin: normal color, warm, vertical well healed surgical scar on chest Results & Data Vital Signs (Past 12 Hours) Vital Signs Temp Pulse Pulse Resp BP Pulse Ox 12/25/18 10:59 36.7 C 69 18 147/84 H 94 12/25/18 08:00 69 12/25/18 07:39 36.7 C 71 17 139/90 94 05/13/19 02:33 36.5 C 65 16 161/92 H 95 Laboratory Results Short CBC 12/24/18 12/25/18 Range/Units 15:35 02:51 WBC 4.99 5.23 (4.8-10.8) K/uL Hgb 15.0 14.8 (14.0-18.0) g/dL Hct 41.8 L 42.3 (42-52) % Plt Count 159 135 (130-400) K/uL BMP 12/24/18 12/25/18 15:35 02:51 Sodium 140 142 Potassium 4.4 4.3 Chloride 106 108 H Carbon Dioxide 29 29 BUN 22 H 22 H Creatinine 1.24 1.00 Glucose 95 118 H Calcium 8.7 8.5 Cardiac Enzymes 12/24/18 12/24/18 12/25/18 Range/Units 15:35 20:50 02:51 Troponin I < 0.015 < 0.015 < 0.015 (0-0.045) ng/ml Liver Function 12/24/18 Range/Units 15:35 Total Bilirubin 0.5 (0.2-1) mg/dl AST 17 (15-37) U/L ALT 42 (12-78) U/L Alkaline Phosphatase 58 (45-117) U/L Albumin 3.7 (3.4-5.0) gm/dl
--- NOTE | 2018-12-25 12:55 | Discharge Summary ---
Date of Service December 25, 2018 Admission HPI Per Admitting Provider 53-year-old male who presents the ED with chest pain. Patient reports his symptoms began a couple of days ago. He reports he chronically has a " bounding" heartbeat and can frequently feel his heart beating. The symptom has been worse over the past few days and acutely worsening last evening waking him out of sleep. Symptoms are worse with exertion. He reports associated mild exertional shortness of breath and lightheadedness. He denies chest pain and pressure. No diaphoresis or syncopal event. He denies abdominal pain, nausea, vomiting, diarrhea. No other recent illnesses, fevers, chills. He denies any urinary symptoms. On 12/18, patient was given a prednisone taper for management of back pain. Patient also reports he was hypertensive during that outpatient office visit. Upon arrival to the ER, initial BP is 173/96. Initial troponin is negative. EKG demonstrates RBBB and inverted T waves in the anterior leads. Patient was given Maalox and Pepcid without improvement in his symptoms. He reports mild improvement after application of topical nitroglycerin 0.5 inch. D-dimer was elevated and CTA chest was negative for pulmonary embolism. Admission Exam Per Admitting Provider Physical Exam: Vitals signs as noted above General Appearance:Well built and nourished, no apparent distress Head: normocephalic, Atraumatic Eyes: normal inspection, EOMI Neck: supple, Trachea midline Respiratory/Chest: Normal breath sounds, CTA Cardiovascular: S1, S2, +murmur Chest: erythematous rash-skin folds, pacer leads palpable on left side of chest Abdomen/GI:Soft, Non tender, Bowel sounds present Extremities/Musculoskelatal:normal inspection, no edema Neurologic/Psych:AAOX3, grossly no focal neurological deficits Skin: normal color, warm, vertical well healed surgical scar on chest Principal Diagnosis Discharge Information Discharge Diagnosis Chest Pain Hypertensive Urgency Discharge Goals Decrease discomfort,Improve function,Improve disease control Discharge Activity Limitations Resume your previous activity Discharge Data Allergies Allergy/AdvReac Type Severity Reaction Status Date / Time No Known Drug Allergies Allergy . Verified 08/14/13 06:59 GENERAL ANESTHESIA Allergy Intermediate COMBATIVE Uncoded 12/24/18 15:14 Consultations 12/24/18 18:03 ED Decision to Admit Stat 12/24/18 19:21 Consult Cardiology Routine Procedures Performed CTA: 1. No evidence of acute pulmonary embolism 2.No evidence of acute PARENCHYMAL consolidation 3. 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 This is likely either postsurgical or developmental. ECHO: The left ventricle systolic function is normal Ejection fraction = 55 to 60% There is severe concentric left ventricular hypertrophy Poorly visualized aortic valve with history of aortic valve. Aortic stenosis is absent Trace aortic regurgitation There is mild mitral regurgitation There is trace tricuspid regurgitation Doppler findings do not suggest pulmonary hypertension There is no pulmonic valve regurgitation Pulmonic stenosis is absent The aortic root is mildly enlarged, 4.0 cm Ascending aorta is mildly enlarged, 4.0 cm Ordered Studies 12/24/18 16:39 CT angio chest PE protocol Stat Hospital Course (1) Chest pain: Chest Pain: R/O ACS Could be related to uncontrolled HTN induced by recent Corticosteroid use for sciatic pain Troponin X 3:Negative EKG shows: T wave inversion in anterior leads, RBBB CTA: No PE, Consolidation TSH: Normal lipid panel:WNL A1C:5.9 ECHO: EF:55-60%, LV wall motion normal, Severe concentric LVH Continue Aspirin, Metoprolol Added Lisinopril 5mg daily Tele:No dysrhythmias on telemetry as per Cards Appreciate Cardiology Input Planned to get Exercise Stress test as outpatient Symptoms currently resolved Needs FU with Cardiology upon discharge (2) Hypertensive urgency: Likely induced by Recent Corticosteroid use Continue Metoprolol Added Lisinopril Monitor (3) History of ventricular tachycardia: Continue beta-deya History of AICD however electively removed as per patient request secondary to inappropriate firing (4) History of tetralogy of Fallot repair: (5) Status post aortic aneurysm repair: (6) Status post aortic valve repair: ECHO reviewed (7) DVT prophylaxis: SCDs, ambulate Total Time Total Time Spent Total Time Spent (In Minutes): 28 minutes Total Time Includes: Examination of the Patient, Discharge Planning, Medication Reconciliation, Communication With Other Providers and Other Discharge Plan Discharge Items Patient Disposition: Home - Self-Care Reason For Visit: CHEST PAIN Discharge Diagnosis: Chest Pain Hypertensive Urgency Discharge Goals: Decrease discomfort, Improve disease control and Improve function Activity: Resume your previous activity Exercise/Sports: Gradually increase as tolerated Non-emergency contact: Primary Care Provider and Buffing Wheel Inspector Call non-emergency contact if: you have any medication questions, your symptoms worsen, your pain is not controlled, your pain is worsening, your pain is unusual for you, your pain is concerning for you and you have a fever Follow-up/Referrals: Sofie Burgess MD [Primary Care Provider] - Diet: Heart Healthy Addtl Provider Instructions: Follow up with on December at 11:25AM for Primary Care Services Follow up with your Buffing Wheel Inspector Dr.Thomas Tracy Kidd in 1 week as advised Get exercise stress echocardiography as outpatient as advised by your Buffing Wheel Inspector Seek immediate medical attention if your symptoms reoccur or worsen Prescriptions: New lisinopril [Zestril] 5 mg Tablet 5 mg PO QAM 30 Days Qty: 30 RF: 1 Continued multivitamin Tablet 1 tab PO DAILY RF: 0 cyclobenzaprine 10 mg tablet 10 mg PO BID PRN (Reason: Muscle Pain) RF: 0 prednisone 10 mg tablet 10 mg PO UD RF: 0 metoprolol succinate [Toprol XL] 50 mg tablet extended release 24 hr 50 mg PO DAILY RF: 0 aspirin [Aspir-Low] 81 mg Tablet,Delayed Release (Dr/Ec) 81 mg PO DAILY RF: 0 acetaminophen [Tylenol Extra Strength] 500 mg Tablet 1,000 mg PO Q6H PRN (Reason: Pain) RF: 0 ibuprofen [Advil] 200 mg Tablet 400 mg PO Q6H PRN (Reason: Pain) RF: 0 Stand-Alone Forms: [employer] [facility] [employer] [facility]/Other Patient Handouts: Lisinopril Oral tablet, Heart Risk, Heart Attack Warning Signs Discharge Orders: Discharge Order (Routine); Ordered 12/25/18 Ordered By: Gregorio Severino Admission Data Admit Date/Time: 12/24/18 18:32 Attending Provider: Gregorio Severino Admit Provider: Gregorio Severino Primary Care Provider: Sofie Burgess Other Providers: Gregorio Severino ; Reg Kidd Service: Telemetry Other Interventions: Discharge Summary Assessment (RN) Last Done: 12/25/18 13:32 Pending Studies at Discharge: No DC Date/Time DO NOT enter until pt leaves facility: 12/25/18 14:15
--- NOTE | 2018-12-25 19:36 | Emergency Department Note ---
Entered by Ignacia Gutierrez acting as a scribe for History of Present Illness General Chief complaint: Cardiac Assessment Stated complaint: HEART POUNDING,HX OF CARDIAC ISSUES Time Seen by Provider: 12/24/18 14:35 Source: patient Limitations: no limitations History of Present Illness Onset (ago): hour(s) greater than 10 Location: chest Pain Consistency: + intermittent Maximum Pain Intensity: 0 Quality: + other ("pounding heart") Relieved By: + other ("sitting in a crouched position") Exacerbated By: + movement Associated symptoms: + denies other symptoms (change in BM, abdominal pain, back pain, upper extremity pain, urinary symptoms, lower extremity swelling, and recent long trips), + nausea/vomiting (complains of nausea, denies any vomiting) and + other ("not feeling oxygenated" and recently feeling lightheaded with exertion) The patient is a 53 year old male who presents to the ED complaining of an intermittent "pounding heart" that woke him up from sleep at 02:30 this morning. He notes a discomfort in his chest and neck. The patient complains of nausea, "not feeling oxygenated," and recently feeling lightheaded with exertion. He denies any vomiting, change in BM, abdominal pain, back pain, upper extremity pain, urinary symptoms, lower extremity swelling, and recent long trips. Pt had surgery in 1974 to repair tetrology of Fallot. He then had a gallo repair and r epair of an ascending aortic aneurysm. Pt has also previously had a pacer/ICD but it has since been removed however the leads remain. The patient notes that movement worsens the symptoms. He states that "sitting in a crouched position" relieves the pain. The patient reports that he has been on Prednisone for the past 4 days for right-sided sciatica, noting that this is his third time attempting to use steroids for the sciatica. He states that his last echocardiogram was 3 years ago. The patient states that he takes a baby Aspirin daily. Home Medications Home Medications Medication Instructions Recorded Confirmed Type acetaminophen [Tylenol Extra 1,000 mg PO Q6H PRN 12/24/18 12/24/18 History Strength] aspirin [Aspir-Low] 81 mg PO DAILY 12/24/18 12/24/18 History cyclobenzaprine 10 mg PO BID PRN 12/24/18 12/24/18 History ibuprofen [Advil] 400 mg PO Q6H PRN 12/24/18 12/24/18 History metoprolol succinate [Toprol XL] 50 mg PO DAILY 12/24/18 12/24/18 History multivitamin 1 tab PO DAILY 12/24/18 12/24/18 History prednisone 10 mg PO UD 12/24/18 12/24/18 History lisinopril [Zestril] 5 mg PO QAM 30 Days #30 tab 12/25/18 Rx Allergies Allergy/AdvReac Type Severity Reaction Status Date / Time No Known Drug Allergies Allergy . Verified 08/14/13 06:59 GENERAL ANESTHESIA Allergy Intermediate COMBATIVE Uncoded 12/24/18 15:14 Past Med/Surg History Medical History History of ventricular tachycardia (Chronic) Dyslipidemia (Chronic) History of aortic aneurysm (Resolved) History of placement of internal cardiac defibrillator (Chronic) S/P removal, per patient request for inappropriate firing Surgical History Status post aortic valve repair (Chronic) Status post aortic aneurysm repair (Chronic) s/p aortic valve repair and aortic root replacement with ascending aortic and hemiarch replacement S/P tendon repair (Chronic) Left biceps H/O repair of right rotator cuff (Chronic) History of tetralogy of Fallot repair (Chronic) Status post rotator cuff repair (Chronic) Family History Father Sudden , Onset Age: 60 Cardiomyopathy Mother Diabetes Aunt Sudden , Onset Age: 45 Social History Preferred Language: Thai Communication Ability: Effective [employer] Required: No Beliefs That Will Affect Care: None Current Living Situation: Spouse and Family Other Information That Helps Us Care for You: No Feels Safe at Home: Yes Safety Concerns: Feels Safe At This Time Smoking Status: Never smoker Hx Alcohol Use: Yes Alcohol type: beer and wine Hx Substance Use: No Review of Systems See HPI for pertinent positives & negatives. and A total of 10 systems reviewed and were otherwise negative Physical Exam Vital Signs Vital Signs - 24 hr 12/24/18 20:13 12/24/18 22:58 12/25/18 02:33 Temperature 36.7 C 36.8 C 36.5 C Temperature Source Oral Oral Oral Pulse Rate Pulse Rate [Apical] Pulse Rate [Finger] 70 62 65 Respiratory Rate 18 18 16 Respiratory Depth Normal Blood Pressure [Left Arm] 124/88 132/77 161/92 H Blood Pressure Mean [Left Arm] 100 95 115 Blood Pressure Position [Left Arm] Sitting Lying Sitting Pulse Oximetry 95 95 95 Oxygen Delivery Method Room Air Room Air Room Air 12/25/18 07:39 12/25/18 08:00 12/25/18 10:59 Temperature 36.7 C 36.7 C Temperature Source Oral Oral Pulse Rate 69 Pulse Rate [Apical] Pulse Rate [Finger] 71 69 Respiratory Rate 17 18 Respiratory Depth Blood Pressure [Left Arm] 139/90 147/84 H Blood Pressure Mean [Left Arm] 106 105 Blood Pressure Position [Left Arm] Sitting Lying Pulse Oximetry 94 94 Oxygen Delivery Method Room Air Room Air 12/25/18 13:20 12/25/18 13:32 Temperature 36.7 C 36.7 C Temperature Source Pulse Rate Pulse Rate [Apical] 65 65 Pulse Rate [Finger] 69 69 Respiratory Rate 18 18 Respiratory Depth Blood Pressure [Left Arm] 147/84 H 147/84 H Blood Pressure Mean [Left Arm] Blood Pressure Position [Left Arm] Pulse Oximetry 94 94 Oxygen Delivery Method GENERAL: alert, well appearing, well nourished, no distress, non-toxic EYE EXAM: normal conjunctiva, PERRL and EOM's grossly intact OROPHARYNX: no exudate, no erythema, lips, buccal mucosa, and tongue normal and mucous membranes are moist NECK: supple, no nuchal rigidity, no adenopathy, non-tender LUNGS: Clear to auscultation. Normal chest wall mechanics, no w/r/r CHEST: Well-healed vertical midline scar. HEART: no murmurs, S1 normal and S2 normal ABDOMEN: abdomen soft, non-tender, normo-active bowel sounds, no masses, no rebound or guarding. BACK: Back is symmetrical on inspection and there is no deformity, no midline tenderness, no CVA tenderness. SKIN: no rashes and no bruising UPPER EXTREMITIES: upper extremities are grossly normal. FROM, nml pulses b/l. LOWER EXTREMITIES: No pitting edema. FROM, nml pulses b/l. NEURO EXAM: Normal sensorium, cranial nerves II-XII grossly intact, normal speech, no gross weakness of arms, no gross weakness of legs. Course 1444: The patient was evaluated in room C02. A complete history and physical exam was performed. 1602: I reevaluated the patient. He stated that he only had minimal improvement of his symptoms. 1640: The checked on the patient. 1739: I discussed the patients results with Dr. Med Pickens, [facility] radiology. 1747: I spoke with Dr. Kidd, [facility], about the patients case. He agrees with the plan. 1755: I updated the patient, and he agrees with the plan to be admitted. 1759: I spoke with ZHAO Quigley, about the patients case. She will further evaluate the patient. Consultations Consultation #1: I discussed the patients results with Dr. Med Pickens, [facility] radiology. Time: 17:39 Consultation #2: I spoke with [facility], about the patients case. He agrees with the plan. Time: 17:47 Consultation #3: I spoke with ZHAO Quigley, about the patients case. She will further evaluate the patient. Time: 17:59 Administered Medications Discontinued Medications Acetaminophen (Tylenol) 650 mg PO Q4H PRN PRN Reason: Pain or Fever Stop: 01/23/19 19:20 Last Admin: 12/25/18 02:16 Dose: 650 mg Documented by: [id number] Al Hydrox/Mg Hydrox/Simethicone (Maalox) 30 ml PO NOW STA Stop: 12/24/18 15:06 Last Admin: 12/24/18 15:45 Dose: 30 ml Documented by: [id number] Aspirin (Ecotrin Ectab) 81 mg PO DAILY MILDRED Stop: 01/24/19 08:59 Last Admin: 12/25/18 09:20 Dose: 81 mg Documented by: [id number] Famotidine (Pepcid 20mg Iv Push) 20 mg IV ONE STA Stop: 12/24/18 15:06 Last Admin: 12/24/18 15:45 Dose: 20 mg Documented by: [id number] Sodium Chloride (Nss) 500 mls @ 999 mls/hr IV .Q31M ONE Stop: 12/24/18 18:09 Last Infusion: 12/24/18 18:24 Dose: 0 mls/hr Documented by: [id number] Admin: 12/24/18 17:49 Dose: 999 mls/hr Documented by: [id number] Promethazine HCl 12.5 mg/ (Sodium Chloride) 50.5 mls @ 202 mls/hr IV Q6H PRN PRN Reason: Nausea And Vomiting Stop: 01/24/19 03:03 Last Infusion: 12/25/18 03:59 Dose: 0 mls/hr Documented by: [id number] Admin: 12/25/18 03:36 Dose: 202 mls/hr Documented by: [id number] Ioversol (Optiray 320 125ml) 117 ml IV ONCE PRN PRN Reason: Interaction Checking Stop: 12/28/18 16:52 Last Admin: 12/24/18 16:54 Dose: 117 ml Documented by: [id number] Ketorolac Tromethamine (Toradol) 15 mg IV NOW STA Stop: 12/24/18 17:40 Last Admin: 12/24/18 17:49 Dose: 15 mg Documented by: [id number] Lisinopril (Zestril) 5 mg PO QAM MILDRED Stop: 01/24/19 08:59 Last Admin: 12/25/18 09:19 Dose: 5 mg Documented by: [id number] Metoprolol Succinate (Toprol Xl) 12.5 mg PO NOW STA Stop: 12/25/18 03:06 Last Admin: 12/25/18 03:36 Dose: 12.5 mg Documented by: [id number] Multivitamins (Multivitamin Tab) 1 tab PO DAILY MILDRED Stop: 01/24/19 08:59 Last Admin: 12/25/18 09:19 Dose: 1 tab Documented by: [id number] Nitroglycerin (Nitro-Bid 2%) 0.5 inch EXT NOW STA Stop: 12/24/18 18:03 Last Admin: 12/24/18 18:14 Dose: 0.5 inch Documented by: [id number] Medical Decision Making Differential Diagnosis The differential diagnosis includes: Acute coronary syndrome, pulmonary embolus, aortic dissection, musculoskeletal pain, pneumonia, pleural effusion, pneumothorax Medical Records Attestation: I reviewed the patient's medical records. Home Medications Current Medication List: was personally reviewed by me Laboratory Data Attestation: I reviewed the patient's lab results. Result diagrams: 12/25/18 02:51 12/25/18 02:51 Lab Results 12/24/18 12/24/18 12/24/18 Range/Units 15:35 15:35 15:35 WBC 4.99 (4.8-10.8) K/uL RBC 4.87 (4.7-6.1) M/uL Hgb 15.0 (14.0-18.0) g/dL Hct 41.8 L (42-52) % MCV 85.8 (80-100) fL MCH 30.8 (25-34) pg MCHC 35.9 (32-36) g/dL RDW Std Deviation 39.4 (36.4-46.3) fL RDW Coeff of Ama 12.6 (11.5-14.5) % Plt Count 159 (130-400) K/uL MPV 8.9 (7.4-10.4) fL Immature Gran % (Auto) 0.8 % Neut % (Auto) 52.7 % Lymph % (Auto) 32.3 % Hood % (Auto) 12.4 % Eos % (Auto) 1.8 % Baso % (Auto) 0.0 % Immature Gran # (Auto) 0.04 H (0.00-0.02) K/uL Neut # (Auto) 2.63 (1.4-6.5) K/uL Lymph # (Auto) 1.61 (1.2-3.4) K/uL Hood # (Auto) 0.62 H (0.11-0.59) K/uL Eos # (Auto) 0.09 (0-0.5) K/uL Baso # (Auto) 0.00 (0-0.2) K/uL D-Dimer 610 H* (0-500) ug/L FEU Sodium 140 (136-145) mmol/L Potassium 4.4 (3.5-5.1) mmol/L Chloride 106 (98-107) mmol/L Carbon Dioxide 29 (21-32) mmol/L Anion Gap 5.0 (3-11) BUN 22 H (7-18) mg/dl Creatinine 1.24 (0.6-1.4) mg/dl Est Cr Clr Drug Dosing 89.1 ml/min Est GFR ( Amer) 77.0 Est GFR (Non-Af Amer) 66.4 BUN/Creatinine Ratio 17.3 (10-20) Glucose 95 (70-99) mg/dl POC Glucose (70-99) Estimat Average Glucose mg/dl Hemoglobin A1c (4.5-5.6) % Calcium 8.7 (8.5-10.1) mg/dl Magnesium 2.2 (1.8-2.4) mg/dl Total Bilirubin 0.5 (0.2-1) mg/dl AST 17 (15-37) U/L ALT 42 (12-78) U/L Alkaline Phosphatase 58 (45-117) U/L Troponin I < 0.015 (0-0.045) ng/ml NT-Pro-B Natriuret Pep 114 (0-900) pg/ml Total Protein 6.7 (6.4-8.2) gm/dl Albumin 3.7 (3.4-5.0) gm/dl Globulin 3.0 (2.5-4.0) gm/dl Albumin/Globulin Ratio 1.2 (0.9-2) Triglycerides (0-150) mg/dl Cholesterol (0-200) mg/dl LDL Cholesterol, Calc mg/dl VLDL Cholesterol, Calc mg/dl HDL Cholesterol mg/dl Cholesterol/HDL Ratio TSH (0.300-4.500) uIu/ml 12/24/18 12/25/18 12/25/18 Range/Units 20:50 02:22 02:51 WBC (4.8-10.8) K/uL RBC (4.7-6.1) M/uL Hgb (14.0-18.0) g/dL Hct (42-52) % MCV (80-100) fL MCH (25-34) pg MCHC (32-36) g/dL RDW Std Deviation (36.4-46.3) fL RDW Coeff of Maa (11.5-14.5) % Plt Count (130-400) K/uL MPV (7.4-10.4) fL Immature Gran % (Auto) % Neut % (Auto) % Lymph % (Auto) % Hood % (Auto) % Eos % (Auto) % Baso % (Auto) % Immature Gran # (Auto) (0.00-0.02) K/uL Neut # (Auto) (1.4-6.5) K/uL Lymph # (Auto) (1.2-3.4) K/uL Hood # (Auto) (0.11-0.59) K/uL Eos # (Auto) (0-0.5) K/uL Baso # (Auto) (0-0.2) K/uL D-Dimer (0-500) ug/L FEU Sodium 142 (136-145) mmol/L Potassium 4.3 (3.5-5.1) mmol/L Chloride 108 H (98-107) mmol/L Carbon Dioxide 29 (21-32) mmol/L Anion Gap 5.0 (3-11) BUN 22 H (7-18) mg/dl Creatinine 1.00 (0.6-1.4) mg/dl Est Cr Clr Drug Dosing 113.4 ml/min Est GFR ( Amer) 99.8 Est GFR (Non-Af Amer) 86.2 BUN/Creatinine Ratio 22.5 H (10-20) Glucose 118 H (70-99) mg/dl POC Glucose 100 H (70-99) Estimat Average Glucose mg/dl Hemoglobin A1c (4.5-5.6) % Calcium 8.5 (8.5-10.1) mg/dl Magnesium (1.8-2.4) mg/dl Total Bilirubin (0.2-1) mg/dl AST (15-37) U/L ALT (12-78) U/L Alkaline Phosphatase (45-117) U/L Troponin I < 0.015 < 0.015 (0-0.045) ng/ml NT-Pro-B Natriuret Pep (0-900) pg/ml Total Protein (6.4-8.2) gm/dl Albumin (3.4-5.0) gm/dl Globulin (2.5-4.0) gm/dl Albumin/Globulin Ratio (0.9-2) Triglycerides 133 (0-150) mg/dl Cholesterol 188 (0-200) mg/dl LDL Cholesterol, Calc 115 mg/dl VLDL Cholesterol, Calc 27 mg/dl HDL Cholesterol 46 mg/dl Cholesterol/HDL Ratio 4 TSH 1.610 (0.300-4.500) uIu/ml 12/25/18 12/25/18 Range/Units 02:51 02:51 WBC 5.23 (4.8-10.8) K/uL RBC 4.91 (4.7-6.1) M/uL Hgb 14.8 (14.0-18.0) g/dL Hct 42.3 (42-52) % MCV 86.2 (80-100) fL MCH 30.1 (25-34) pg MCHC 35.0 (32-36) g/dL RDW Std Deviation 39.9 (36.4-46.3) fL RDW Coeff of Ama 12.6 (11.5-14.5) % Plt Count 135 (130-400) K/uL MPV 8.5 (7.4-10.4) fL Immature Gran % (Auto) % Neut % (Auto) % Lymph % (Auto) % Hood % (Auto) % Eos % (Auto) % Baso % (Auto) % Immature Gran # (Auto) (0.00-0.02) K/uL Neut # (Auto) (1.4-6.5) K/uL Lymph # (Auto) (1.2-3.4) K/uL Hood # (Auto) (0.11-0.59) K/uL Eos # (Auto) (0-0.5) K/uL Baso # (Auto) (0-0.2) K/uL D-Dimer (0-500) ug/L FEU Sodium (136-145) mmol/L Potassium (3.5-5.1) mmol/L Chloride (98-107) mmol/L Carbon Dioxide (21-32) mmol/L Anion Gap (3-11) BUN (7-18) mg/dl Creatinine (0.6-1.4) mg/dl Est Cr Clr Drug Dosing ml/min Est GFR ( Amer) Est GFR (Non-Af Amer) BUN/Creatinine Ratio (10-20) Glucose (70-99) mg/dl POC Glucose (70-99) Estimat Average Glucose 123 mg/dl Hemoglobin A1c 5.9 H (4.5-5.6) % Calcium (8.5-10.1) mg/dl Magnesium (1.8-2.4) mg/dl Total Bilirubin (0.2-1) mg/dl AST (15-37) U/L ALT (12-78) U/L Alkaline Phosphatase (45-117) U/L Troponin I (0-0.045) ng/ml NT-Pro-B Natriuret Pep (0-900) pg/ml Total Protein (6.4-8.2) gm/dl Albumin (3.4-5.0) gm/dl Globulin (2.5-4.0) gm/dl Albumin/Globulin Ratio (0.9-2) Triglycerides (0-150) mg/dl Cholesterol (0-200) mg/dl LDL Cholesterol, Calc mg/dl VLDL Cholesterol, Calc mg/dl HDL Cholesterol mg/dl Cholesterol/HDL Ratio TSH (0.300-4.500) uIu/ml Imaging Data Radiologist's Impression: Radiology results as stated below per my review and the radiologist's interpretation: XR chest 1V portable CLINICAL HISTORY: Atypical chest pain COMPARISON STUDY: September 2013 FINDINGS: There are residual leads from a left subclavian pacer/defibrillator. There are postsurgical changes of a midline sternotomy. The heart is enlarged. There is no failure. There is no focal pulmonary consolidation. There are no pleural effusions. Chronic changes involve the left humeral head.[ IMPRESSION: No active disease in the chest. Electronically signed by: Med Pickens M.D. 12/24/2018 3:54 PM ADDENDUM Addendum: There is a voice recognition error in the impression. Impression #2, should read as follows: 2. No evidence of acute PARENCHYMAL consolidation. Electronically signed by: Med Pickens M.D. 12/24/2018 5:[address] ANGIOGRAM OF THE CHEST CLINICAL HISTORY: Unexplained tachycardia. Atypical chest pain. Possible pulmonary embolism. COMPARISON STUDY: Chest x-ray dated 12/24/2018 TECHNIQUE: Following the IV administration of 117 mL of Optiray-320, CT angiogram of the thorax was performed from the thoracic inlet to the lung bases utilizing the pulmonary embolus protocol. Images are reviewed in the axial, sagittal, and coronal planes. IV contrast was administered without complication. MIP imaging was performed. A dose lowering technique was utilized adhering to the principles of ALARA. CT DOSE: 474.29 mGy.cm FINDINGS: No pathologically enlarged axillary mediastinal or hilar lymph nodes were visualized. There is no evidence for aneurysm. There appears to be a tubular communication with the superior vena cava. Correlation with prior surgical history is recommended. There were no pulmonary artery filling defects to indicate acute pulmonary embolism. No pleural effusions are visualized. Intracardiac pacemaker leads are visualized. IMPRESSION: 1. No evidence of acute pulmonary embolism 2. No evidence of acute rectal consolidation 3. 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 This is likely either postsurgical or developmental. Electronically signed by: Med Pickens M.D. 12/24/2018 5:05 PM ECG Data Attestation: I personally reviewed and interpreted this ECG as follows: Indication: palpitations Rate (beats per minute): 70 Findings: + other (normal axis, normal QTC, prolonged QRS); no acute ischemic change and no ectopy Blood Pressure Blood Pressure Findings: Elevated blood pressure Blood Pressure Disposition: further management by hospitalist MDM Narrative Pt here well appearing. No hx of prior CAD, last cath in 2007 before valve repair. Some family hx of CAD. Pt here with no relief after initially trying GI meds for relief given recent use of steroids. Given significant pmhx, case discussed with cardiology and then with hospitalist for additional evaluation. VS stable throughout. No relief with nitro. I am concerned not only by pmhx but also bc pt relays his symptoms are worse with exertion. No evidence of i nfectious etiology, I do not suspect vascular etiology. Pt aware of all results and in agreement with plan. Impression & Plan Chest pain Discharge Plan Visit Data *Final* Discharge Date/Time: 12/24/18 19:08 Chief Complaint: Cardiac Assessment Stated Complaint: HEART POUNDING,HX OF CARDIAC ISSUES ED Provider: Angie Redd Discharge Problem: Chest pain Patient Disposition: Admitted As Inpatient Discharge Instructions Interventions: ED Discharge Assessment Last Done: 12/24/18 19:08 The scribe's documentation has been prepared under my direction and personally reviewed by me in its entirety. I confirm that the note above accurately reflects all work, treatment, procedures, and medical decision making performed by me.
[2018-12-26] MEDS ORDERED: METOPROLOL SUCC 50MG EXT REL TAB PO SCH (09:00)
== END 2018-12-25 14:15 | disposition home or self-care (01) ==
LOC: 2E 14:03 → ED 14:03 → 2E 19:08

== ENCOUNTER 2021-10-15 12:51 | Observation (INO) ==
[2021-10-15] MEDS ORDERED: LORazepam 2 MG/1 ML VIAL IV STA (13:18)
--- NOTE | 2021-10-15 13:28 | Emergency Department Note ---
Impression & Plan Precordial chest pain, SOB (shortness of breath), Tetralogy of Fallot, H/O aortic valve repair ED Provider Note NAME: DAVID MATT AGE: 56 SEX: M : 1965 ARRIVES VIA: Walk-In INFORMANT: [Patient] ED PROVIDER(S): [Beka Lee MD] CHIEF COMPLAINT: Cardiac assessment HISTORY OF PRESENT ILLNESS: Patient is a 56-year-old male with a history of aortic root repair, repair of tetralogy of Fallot, V. tach. The patient presents with about 6 days of chest tightness. He describes the tightness as a 4/10. Exertion does not make the tightness worse. He has noticed a bit of shortness of breath and he feels that the breathing issue has worsened in the last 24 to 48 hours. Walking and doing stairs makes him quite winded. His voice has become a bit hoarse. No cough. He has noticed some body aches and some lower back pain. No fever, no chills. He has noticed some sweats. The patient did take a home Covid test today, it returned negative. The patient was seen in this ED 2 days ago. He had laboratory testing which was unrevealing. He had a CT of his chest which was unrevealing. He was discharged to follow with cardiology. He was to see cardiology today but, because of his symptoms, presents to the ED again. The patient is vaccinated for COVID-19 x3, he has been vaccinated for the flu. The patient notes that he feels a bit anxious and he does have an anxiety history. He does not think all of this is anxiety though. REVIEW OF SYSTEMS: See HPI for pertinent positives and negatives. A total of ten systems were reviewed and were otherwise negative. PMHx/PSHx: See Below SOCIAL HISTORY: See Below. PHYSICAL EXAM: GENERAL: Patient is in no acute distress. Slightly anxious. HEENT: No acute trauma, normocephalic atraumatic, mucous membranes moist, no nasal congestion, no scleral icterus. NECK: No stridor, no adenopathy, no meningismus, trachea is midline. LUNGS: Clear to auscultation bilaterally, no wheeze, no rhonchi, breath sounds equal. HEART: Without murmurs gallops or rubs, regular rate and rhythm. ABDOMEN: Soft, nontender, bowel sounds positive, no hernias, no peritonitis. EXTREMITIES: No cyanosis or edema, full range of motion of all the joints without pain or difficulty, no signs for acute trauma. NEUROLOGIC: Oriented x 3, no acute motor or sensory deficits, no focal weakness. SKIN: No rash, no jaundice, subtle diaphoresis. DIFFERENTIAL DIAGNOSIS: Cardiac ischemia, aortic dissection, pulmonary embolism, pneumothorax, pneumonia, pericarditis, myocarditis, esophageal rupture, GERD, cholecystitis, pancreatitis, musculoskeletal, as well as other pathologies. EMERGENCY DEPARTMENT COURSE/PROCEDURES: ECG: Indication was chest pain. The ECG shows a normal sinus rhythm with a rate of 68. There is a nonspecific interventricular conduction delay/block. There is no ST elevation. No PVCs. The QTc is 444. Compared to an ECG from 13 October 2021, no significant change. Continuous Cardiac Monitoring: An order was placed for continuous cardiac monitoring. The monitor shows a rate of 75 with normal sinus rhythm. MEDICAL DECISION MAKING: There is no leukocytosis or concerning anemia. There is a normal platelet count. No coagulopathy. No significant electrolyte abnormality or renal failure. No worrisome liver enzyme elevation. The patient appears to be in a euthyroid state. ECG shows a normal sinus rhythm with some nonspecific intraventricular block. No ST elevation. Cardiac enzyme testing x1 is not consistent with acute cardiac injury. No evidence for pancreatitis by our testing. Chest x-ray does not show mediastinal widening, pneumonia or pneumothorax. Urinalysis did not show infection. Covid testing was negative. On exam, there was no significant cardiac murmur, the lungs were clear. The patient did seem a bit anxious. The patient was given IV Ativan, 0.5 mg, this did help his anxiety. I did speak with cardiology. Cardiology saw the patient here in the ED and ordered for a cardiac echo. The results are pending. Given the patient's past history, given his ongoing pain and increasing shortness of breath, hospitalization is warranted. I spoke with the patient and case technician. The on-call hospitalist was consulted. The patient is currently resting comfortably. Past Med/Surg History Medical History Dyslipidemia History of aortic aneurysm History of placement of internal cardiac defibrillator S/P removal, per patient request for inappropriate firing History of ventricular tachycardia Surgical History H/O repair of right rotator cuff History of tetralogy of Fallot repair S/P tendon repair Left biceps Status post aortic aneurysm repair s/p aortic valve repair and aortic root replacement with ascending aortic and hemiarch replacement Status post aortic valve repair Status post rotator cuff repair Family History Father Sudden , Onset Age: 60 Cardiomyopathy Mother Diabetes Aunt Sudden , Onset Age: 45 Social History Smoking Status: Never smoker Hx Alcohol Use: Yes Alcohol type: beer and wine Hx Substance Use: No Preferred Language: Turkmen Communication Ability: Effective Pecan Cleaner Required: No Beliefs That Will Affect Care: None Current Living Situation: Spouse and Family Feels Safe at Home: Yes Allergies Allergies Allergy/AdvReac Type Severity Reaction Status Date / Time No Known Drug Allergies Allergy . Verified 10/15/21 14:02 GENERAL ANESTHESIA Allergy Intermediate COMBATIVE Uncoded 10/15/21 14:02 Home Meds Home Medications Medication Instructions Recorded Confirmed metoprolol succinate 50 mg 50 mg PO DAILY 12/24/18 10/15/21 tablet,extended release 24 hr (Toprol XL) multivitamin 1 tab PO DAILY 12/24/18 10/15/21 aspirin 81 mg tablet,delayed 81 mg PO DAILY 05/07/21 10/15/21 release lisinopril 5 mg tablet 5 mg PO DAILY 05/07/21 10/15/21 Results & Data (ED) Vital Signs Vital Signs - 24 hr 10/15/21 12:51 10/15/21 13:24 10/15/21 13:25 Temperature 36.5 C Temperature Source Temporal Artery Scan Pulse Rate 75 75 Pulse Rate [Apical] 70 Pulse Rate from SpO2 Sensor Respiratory Rate 16 20 Respiratory Effort / Characteristics Non-Labored Non-Labored Spontaneous Respiratory Depth Normal Normal Respiratory Pattern Regular Blood Pressure 149/89 H Blood Pressure [Right Arm] 136/87 Blood Pressure Mean 109 Blood Pressure Mean [Right Arm] 103 Pulse Oximetry 99 100 100 Oxygen Delivery Method Room Air Room Air Room Air Sepsis Recent Fever Within 48 Hours No Sepsis New/Unexplained Change in Mental Status No Sepsis Action Taken by Nursing No Action Required 10/15/21 14:00 Temperature Temperature Source Pulse Rate 62 Pulse Rate [Apical] Pulse Rate from SpO2 Sensor 64 Respiratory Rate 22 Respiratory Effort / Characteristics Respiratory Depth Respiratory Pattern Blood Pressure Blood Pressure [Right Arm] Blood Pressure Mean Blood Pressure Mean [Right Arm] Pulse Oximetry 99 Oxygen Delivery Method Room Air Sepsis Recent Fever Within 48 Hours Sepsis New/Unexplained Change in Mental Status Sepsis Action Taken by [facility] Medications Current Medication List: was personally reviewed by me Laboratory Data Attestation: I reviewed the patient's lab results. Result diagrams: 10/15/21 13:42 10/15/21 13:42 Lab Results 10/15/21 10/15/21 10/15/21 Range/Units 13:42 13:42 13:42 WBC 6.34 (4.8-10.8) K/uL RBC 5.13 (4.7-6.1) M/uL Hgb 15.8 (14.0-18.0) g/dL Hct 44.0 (42-52) % MCV 85.8 (80-100) fL MCH 30.8 (25-34) pg MCHC 35.9 (32-36) g/dL RDW Std Deviation 38.7 (36.4-46.3) fL RDW Coeff of Ama 12.2 (11.5-14.5) % Plt Count 160 (130-400) K/uL MPV 8.6 (7.4-10.4) fL Immature Gran % (Auto) 0.3 % Neut % (Auto) 69.6 % Lymph % (Auto) 22.7 % [place] % (Auto) 6.9 % Eos % (Auto) 0.3 % Baso % (Auto) 0.2 % Neut # (Auto) 4.41 (1.4-6.5) K/uL Lymph # (Auto) 1.44 (1.2-3.4) K/uL [place] # (Auto) 0.44 (0.11-0.59) K/uL Eos # (Auto) 0.02 (0-0.5) K/uL Baso # (Auto) 0.01 (0-0.2) K/uL Immature Gran # (Auto) 0.02 (0.00-0.02) K/uL PT 11.4 (9.0-12.0) Seconds INR 1.1 (0.9-1.1) APTT 25.4 (21.0-31.0) Seconds PTT Ratio 0.9 Sodium 140 (136-145) mmol/L Potassium 4.1 (3.5-5.1) mmol/L Chloride 106 (98-107) mmol/L Carbon Dioxide 26 (21-32) mmol/L Anion Gap 8 (3-11) BUN 16 (6-23) mg/dl Creatinine 0.87 (0.6-1.4) mg/dl Est Cr Clr Drug Dosing 105.3 ml/min Est GFR ( Amer) 112.6 ml/min Est GFR (Non-Af Amer) 97.2 ml/min BUN/Creatinine Ratio 18.4 (10-20) Glucose 110 H (70-99(Fasting)) mg/dl Calcium 10.3 H (8.5-10.1) mg/dl Magnesium 2.1 (1.7-2.4) mg/dl Total Bilirubin 0.8 (0.2-1.0) mg/dl AST 18 (13-39) U/L ALT 25 (7-52) U/L Alkaline Phosphatase 49 (34-104) U/L Troponin I < 0.03 (0-0.04) ng/ml Total Protein 7.2 (6.0-8.3) gm/dl Albumin 4.8 (3.4-5.0) gm/dl Globulin 2.4 L (2.5-4.0) gm/dl Albumin/Globulin Ratio 2.0 (0.9-2) Lipase 23 (11-82) U/L TSH (0.300-4.500) uIu/ml Urine Color Urine Appearance (Clear) Urine pH (4.5-7.5) Ur Specific [place] (1.000-1.030) Urine Protein (Negative) Urine Glucose (UA) (Negative) Urine Ketones (Negative) Urine Blood (Negative) Urine Nitrite (Negative) Urine Bilirubin (Negative) Urine Urobilinogen (Negative) Ur Leukocyte Esterase (Negative) SARS-CoV-2, RNA, NAAT (NEGATIVE) 10/15/21 10/15/21 10/15/21 Range/Units 13:42 13:42 13:42 WBC (4.8-10.8) K/uL RBC (4.7-6.1) M/uL Hgb (14.0-18.0) g/dL Hct (42-52) % MCV (80-100) fL MCH (25-34) pg MCHC (32-36) g/dL RDW Std Deviation (36.4-46.3) fL RDW Coeff of Ama (11.5-14.5) % Plt Count (130-400) K/uL MPV (7.4-10.4) fL Immature Gran % (Auto) % Neut % (Auto) % Lymph % (Auto) % [place] % (Auto) % Eos % (Auto) % Baso % (Auto) % Neut # (Auto) (1.4-6.5) K/uL Lymph # (Auto) (1.2-3.4) K/uL [place] # (Auto) (0.11-0.59) K/uL Eos # (Auto) (0-0.5) K/uL Baso # (Auto) (0-0.2) K/uL Immature Gran # (Auto) (0.00-0.02) K/uL PT (9.0-12.0) Seconds INR (0.9-1.1) APTT (21.0-31.0) Seconds PTT Ratio Sodium (136-145) mmol/L Potassium (3.5-5.1) mmol/L Chloride (98-107) mmol/L Carbon Dioxide (21-32) mmol/L Anion Gap (3-11) BUN (6-23) mg/dl Creatinine (0.6-1.4) mg/dl Est Cr Clr Drug Dosing ml/min Est GFR ( Amer) ml/min Est GFR (Non-Af Amer) ml/min BUN/Creatinine Ratio (10-20) Glucose (70-99(Fasting)) mg/dl Calcium (8.5-10.1) mg/dl Magnesium (1.7-2.4) mg/dl Total Bilirubin (0.2-1.0) mg/dl AST (13-39) U/L ALT (7-52) U/L Alkaline Phosphatase (34-104) U/L Troponin I (0-0.04) ng/ml Total Protein (6.0-8.3) gm/dl Albumin (3.4-5.0) gm/dl Globulin (2.5-4.0) gm/dl Albumin/Globulin Ratio (0.9-2) Lipase (11-82) U/L TSH 0.744 (0.300-4.500) uIu/ml Urine Color Yellow Urine Appearance Clear (Clear) Urine pH 8.5 H (4.5-7.5) Ur Specific [place] 1.004 (1.000-1.030) Urine Protein Negative (Negative) Urine Glucose (UA) Negative (Negative) Urine Ketones Negative (Negative) Urine Blood Negative (Negative) Urine Nitrite Negative (Negative) Urine Bilirubin Negative (Negative) Urine Urobilinogen Negative (Negative) Ur Leukocyte Esterase Negative (Negative) SARS-CoV-2, RNA, NAAT NEGATIVE (NEGATIVE) Administered Medications Discontinued Medications Lorazepam (Lorazepam 2 Mg/1 Ml Vial) 0.5 mg IV NOW STA Stop: 10/15/21 13:19 Last Admin: 10/15/21 13:39 Dose: 0.5 mg Documented by: [id number] Imaging Data Radiologist's Impression: Chest X-Ray 10/15/21 13:18 XR chest 1V portable CLINICAL HISTORY: Chest Pain. COMPARISON STUDY: 10/13/2021 TECHNIQUE: 1 view of the chest FINDINGS: Single frontal view of the chest demonstrates the heart size to again be enlarged status post previous cardiothoracic surgery. Wires are present from previous pacer. The lungs are clear of alveolar opacities. There is no evidence for pleural effusion. There is no evidence for vascular congestion. There is no acute osseous pathology. IMPRESSION: 1. No acute cardiopulmonary disease. ACT 112: Negative or not required by law. Electronically signed by: Remigio Duque M.D. 10/15/2021 3:09 PM Discharge Plan Visit Data Chief Complaint: Cardiac Assessment Stated Complaint: SOB,CHEST TIGHTNESS,LOWER L BACK PAIN ED Provider: Beka Lee Discharge Problem: Precordial chest pain, SOB (shortness of breath), Tetralogy of Fallot, H/O aortic valve repair Patient Disposition: Admitted As Inpatient Condition: Good Forms Stand Alone Forms: My [facility] Prescriptions Prescriptions: No Action multivitamin Tablet 1 tab PO DAILY RF: 0 metoprolol succinate [Toprol XL] 50 mg tablet extended release 24 hr 50 mg PO DAILY RF: 0 aspirin [Aspir-81] 81 mg Tablet,Delayed Release (Dr/Ec) 81 mg PO DAILY RF: 0 lisinopril 5 mg tablet 5 mg PO DAILY RF: 0 Referrals Referrals: Sofie Burgess MD [Primary Care Provider] -
[2021-10-15 13:53] LABS: Basophils # (auto) 0.01 K/uL (0-0.2); Basophils % (auto) 0.2 %; Eosinophils # (auto) 0.02 K/uL (0-0.5); Eosinophils % (auto) 0.3 %; Hemoglobin 15.8 g/dL (14.0-18.0); Immature Granulocytes # (auto) 0.02 K/uL (0.00-0.02); Immature Granulocytes % (auto) 0.3 %; Lymphocytes # (auto) 1.44 K/uL (1.2-3.4); Lymphocytes % (auto) 22.7 %; Mean Corpuscular Hemoglobin 30.8 pg (25-34); Mean Corpuscular Hgb Conc 35.9 g/dL (32-36); Mean Corpuscular Volume 85.8 fL (80-100); Mean Platelet Volume 8.6 fL (7.4-10.4); Monocytes # (auto) 0.44 K/uL (0.11-0.59); Monocytes % (auto) 6.9 %; Neutrophils # (auto) 4.41 K/uL (1.4-6.5); Neutrophils % (auto) 69.6 %; Platelet Count 160 K/uL (130-400); RDW Coefficient of Variation 12.2 % (11.5-14.5); RDW Standard Deviation 38.7 fL (36.4-46.3); Red Blood Count 5.13 M/uL (4.7-6.1); White Blood Count 6.34 K/uL (4.8-10.8)
[2021-10-15 14:08] LABS: Appearance Urine Clear (Clear); Bilirubin Urine Negative (Negative); Blood Urine Negative (Negative); Color Urine Yellow; Glucose Urine UA Negative (Negative); Ketones Urine Negative (Negative); Leukocyte Esterase Urine Negative (Negative); Nitrite Urine Negative (Negative); Protein Urine Negative (Negative); Specific Gravity Urine 1.004 (1.000-1.030); Urobilinogen Urine Negative (Negative); pH Urine 8.5 (4.5-7.5)
[2021-10-15 14:11] LABS: INR 1.1 (0.9-1.1); Partial Thromboplastin Ratio 0.9; Partial Thromboplastin Time 25.4 Seconds (21.0-31.0); Prothrombin Time 11.4 Seconds (9.0-12.0)
[2021-10-15 14:16] LABS: Troponin I < 0.03 ng/ml (0-0.04)
[2021-10-15 14:25] LABS: Alanine Aminotransferase 25 U/L (7-52); Albumin Level 4.8 gm/dl (3.4-5.0); Alkaline Phosphatase 49 U/L (34-104); Anion Gap 8 (3-11); Aspartate Aminotransferase 18 U/L (13-39); BUN Creatinine Ratio 18.4 (10-20); Bilirubin,Total 0.8 mg/dl (0.2-1.0); Blood Urea Nitrogen 16 mg/dl (6-23); Calcium 10.3 mg/dl (8.5-10.1); Carbon Dioxide 26 mmol/L (21-32); Chloride 106 mmol/L (98-107); Creatinine Clr Calc Pharmacy 105.3 ml/min; Est GFR (African American) 112.6 ml/min; Est GFR (Non-African American) 97.2 ml/min; Globulin 2.4 gm/dl (2.5-4.0); Glucose 110 mg/dl (70-99(Fasting)); Lipase 23 U/L (11-82); Magnesium 2.1 mg/dl (1.7-2.4); Potassium 4.1 mmol/L (3.5-5.1); Sodium 140 mmol/L (136-145); Total Protein 7.2 gm/dl (6.0-8.3)
--- NOTE | 2021-10-15 14:35 | Cardiology Consultation ---
Date of Consultation October 15, 2021 Assessment & Plan (1) Palpitation: (2) Status post aortic aneurysm repair: (3) History of tetralogy of Fallot repair: Patient is a 56-year-old male with complex history as outlined with adult congenital heart disease status post Tetralogy of Fallot repair at age 6 and subsequent a sending aortic aneurysm repair 2007. Patient has been experiencing symptoms of awakening from sleep with heart pounding and shortness of breath. No acute findings on EKG or CT scan of the chest. Plan: Now with second ER visit for symptoms further evaluation warranted. We will recommend admit for telemetry observation. Echocardiogram ordered to assess aortic root repair and for valvular insufficiency Patient to continue current medications Would recommend blood cultures as well as evaluation for acute infectious process but nothing to suggest such on initial clinical exam History of Present Illness Reason for Consultation: Dyspnea, fatigue Requesting Physician: Dr. Lee History of Present Illness Patient is a 56-year-old male with complex history of congenital heart disease with issues ongoing which include 1. Adult congenital heart disease status post tetralogy of Fallot repair RVOT augmentation, VSD repair 1971 2. Ascending aortic aneurysm: Status post valve-sparing root replacement, aortic valve repair, ascending and hemiarch replacement on February 03, 2008. 3. Prophylactic defibrillator implantation 2001 following evaluation for syncope, inducible ventricular tachycardia. Device removed with the band and leads in place 4. Dyslipidemia 5. Hypertension Patient presents to the ER today for second visit this week with symptoms of waking at night with heart pounding and palpating increasing shortness of breath and fatigue. He does note noxious odor exposure late last week but no other acute changes in medications or physical activity. No fevers chills or unexplained infections. He was seen in the emergency room on 10/13/2021 with evaluation negative for acute finding including CTA chest and abdomen. Anxiety issues may have been contributing per patient. He saw PCPs office yesterday and was scheduled for cardiology follow-up today but once again began complaining of chest tightness malaise and heart pounding hard. He presented to the emergency room where he was evaluated for above symptoms. He denies fevers chills or on explained infections. Notes no productive cough. Notes no overt orthopnea. Weight has been generally trending downward. No bleeding difficulties. No difficulty taking current medications. Appetites been only fair. No peripheral edema Allergies Allergy/AdvReac Type Severity Reaction Status Date / Time No Known Drug Allergies Allergy . Verified 10/15/21 14:02 GENERAL ANESTHESIA Allergy Intermediate COMBATIVE Uncoded 10/15/21 14:02 Home Medications Medication Instructions Recorded Confirmed Type metoprolol succinate 50 mg 50 mg PO DAILY 12/24/18 10/15/21 History tablet,extended release 24 hr (Toprol XL) multivitamin 1 tab PO DAILY 12/24/18 10/15/21 History aspirin 81 mg tablet,delayed 81 mg PO DAILY 05/07/21 10/15/21 History release lisinopril 5 mg tablet 5 mg PO DAILY 05/07/21 10/15/21 History Patient History Medical History Dyslipidemia History of aortic aneurysm History of placement of internal cardiac defibrillator S/P removal, per patient request for inappropriate firing History of ventricular tachycardia Surgical History H/O repair of right rotator cuff History of tetralogy of Fallot repair S/P tendon repair Left biceps Status post aortic aneurysm repair s/p aortic valve repair and aortic root replacement with ascending aortic and hemiarch replacement Status post aortic valve repair Status post rotator cuff repair Family History Father Sudden , Onset Age: 60 Cardiomyopathy Mother Diabetes Aunt Sudden , Onset Age: 45 Social History Smoking Status: Never smoker Hx Alcohol Use: Yes Alcohol type: beer and wine Hx Substance Use: No Preferred Language: Egyptian Communication Ability: Effective Jewelry Bench Molder Required: No Beliefs That Will Affect Care: None Current Living Situation: Spouse Feels Safe at Home: No Is there a partner from a previous relationship who is making you feel unsafe now?: No Safety Concerns: Feels Safe At This Time Assistive Devices: None Review of Systems Review of Systems: All systems reviewed & are unremarkable except as noted in HPI & below Physical Exam Constitutional: WD/WN, vitals as above Eyes: PERRL, conjunctivae normal, anicteric sclerae ENMT: external ear and nose normal, oropharynx normal Neck: trachea midline, no thyromegaly Respiratory: normal respiratory effort, lungs clear to auscultation Cardiovascular: Rate/Rhythm: regular rate and regular rhythm Very brisk heart sounds with a grade 2/6 systolic murmur right upper sternal border. No diastolic murmur Chest (Breasts): normal inspection/palpation of breasts Gastrointestinal (Abdomen): normal bowel sounds, soft, nontender, no hepatosplenomegaly Musculoskeletal: no cyanosis or clubbing, extremities motor strength 5/5 Neurologic: PERRL, EOMI, accommodation nl, no face palsy, no dysarthria Results & Data ([facility]) Vital Signs (Past 12 Hours) Vital Signs Temp Pulse Pulse Resp BP BP Pulse Ox 10/15/21 14:00 62 22 99 10/15/21 13:25 75 70 20 136/87 100 10/15/21 13:24 100 10/15/21 12:51 36.5 C 75 16 149/89 H 99 Laboratory Results Laboratory Results - last 24 hr 10/15/21 10/15/21 10/15/21 13:42 13:42 13:42 WBC 6.34 RBC 5.13 Hgb 15.8 Hct 44.0 MCV 85.8 MCH 30.8 MCHC 35.9 RDW Std Deviation 38.7 RDW Coeff of Ama 12.2 Plt Count 160 MPV 8.6 Immature Gran % (Auto) 0.3 Neut % (Auto) 69.6 Lymph % (Auto) 22.7 [place] % (Auto) 6.9 Eos % (Auto) 0.3 Baso % (Auto) 0.2 Neut # (Auto) 4.41 Lymph # (Auto) 1.44 [place] # (Auto) 0.44 Eos # (Auto) 0.02 Baso # (Auto) 0.01 Immature Gran # (Auto) 0.02 PT 11.4 INR 1.1 APTT 25.4 PTT Ratio 0.9 Sodium 140 Potassium 4.1 Chloride 106 Carbon Dioxide 26 Anion Gap 8 BUN 16 Creatinine 0.87 Est Cr Clr Drug Dosing 105.3 Est GFR ( Amer) 112.6 Est GFR (Non-Af Amer) 97.2 BUN/Creatinine Ratio 18.4 Glucose 110 H Calcium 10.3 H Magnesium 2.1 Total Bilirubin 0.8 AST 18 ALT 25 Alkaline Phosphatase 49 Troponin I < 0.03 Total Protein 7.2 Albumin 4.8 Globulin 2.4 L Albumin/Globulin Ratio 2.0 Lipase 23 TSH Urine Color Urine Appearance Urine pH Ur Specific [place] Urine Protein Urine Glucose (UA) Urine Ketones Urine Blood Urine Nitrite Urine Bilirubin Urine Urobilinogen Ur Leukocyte Esterase SARS-CoV-2, RNA, NAAT 10/15/21 10/15/21 10/15/21 13:42 13:42 13:42 WBC RBC Hgb Hct MCV MCH MCHC RDW Std Deviation RDW Coeff of Ama Plt Count MPV Immature Gran % (Auto) Neut % (Auto) Lymph % (Auto) [place] % (Auto) Eos % (Auto) Baso % (Auto) Neut # (Auto) Lymph # (Auto) [place] # (Auto) Eos # (Auto) Baso # (Auto) Immature Gran # (Auto) PT INR APTT PTT Ratio Sodium Potassium Chloride Carbon Dioxide Anion Gap BUN Creatinine Est Cr Clr Drug Dosing Est GFR ( Amer) Est GFR (Non-Af Amer) BUN/Creatinine Ratio Glucose Calcium Magnesium Total Bilirubin AST ALT Alkaline Phosphatase Troponin I Total Protein Albumin Globulin Albumin/Globulin Ratio Lipase TSH 0.744 Urine Color Yellow Urine Appearance Clear Urine pH 8.5 H Ur Specific [place] 1.004 Urine Protein Negative Urine Glucose (UA) Negative Urine Ketones Negative Urine Blood Negative Urine Nitrite Negative Urine Bilirubin Negative Urine Urobilinogen Negative Ur Leukocyte Esterase Negative SARS-CoV-2, RNA, NAAT NEGATIVE ECG Additional Comments: EKG 10/15/2021: Normal sinus rhythm with nonspecific interventricular conduction delay
--- NOTE | 2021-10-15 15:11 | XRay Report ---
XR chest 1V portable CLINICAL HISTORY: Chest Pain. COMPARISON STUDY: 10/13/2021 TECHNIQUE: 1 view of the chest FINDINGS: Single frontal view of the chest demonstrates the heart size to again be enlarged status post previou s cardiothoracic surgery. Wires are present from previous pacer. The lungs are clear of alveolar opac ities. There is no evidence for pleural effusion. There is no evidence for vascular congestion. There is no acute osseous pathology. IMPRESSION: 1. No acute cardiopulmonary disease. ACT 112: Negative or not required by law. Electronically signed by: Remigio Duque M.D. 10/15/2021 3:09 PM
--- NOTE | 2021-10-15 15:24 | History & Physical Report ---
Date of Service October 15, 2021 Assessment & Plan (1) Chest pain: (2) History of tetralogy of Fallot repair: (3) History of placement of internal cardiac defibrillator: (4) Status post aortic aneurysm repair: (5) Dyslipidemia: (6) History of ventricular tachycardia: Plan: - Admit to tele for observation for r/o - Trend cardiac biomarkers, initial set was negative, Currently is chest pain free - EKG reviewed as above - Check 2 D echo - being done in ER - await results - Cardiology consulted-appreciate recommendations - PT/OT consulted - Will add blood cultures and follow, afebrile, no leukocytosis to suspect infectious source - Possible anxiety component as per HPI, will consult psychiatry, recommend therapy as an outpatient DVT PPx: - teds, scds CODE: Full code Dispo: From home, likely to remain in the hospital x 1-2 days History of Present Illness Chief Complaint: Chest pain/tightness Primary Care Provider: Sofie Burgess MD This is a 56 yo M with PMhx of tetralogy of Fallot repair, aortic aneurysm repair, V. 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 At that time his labs were negative, CXR and CTPE were negative for acute findings and he was referred for outpatient cardiology follow-up soon. Over the past 24 to 36 hours he has developed worsening chest pain and chest tightness, and was referred by cardiology office to come directly to the hospital for further work-up. At times he has felt like the palpitations of chest pain have been waking him up at night. He denies any radiation to other locations. He admits to associated shortness of breath. Currently he denies any chest pain or SOB. He admits that there is a anxiety component as he typically feels a strong anxious component when palpitations are occurring. He feels that his triggers are related to specifically driving in open spaces. He describes a scenario in 2001 where he was at a grocery store, reaching for something and then all of a sudden passed out, when he awoke he had underwent intubation and extubation and required defibrillator insertion for episode of V. tach. 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 He is requesting psychiatry consultation if possible. He has tried Ativan in the past 2 days and states that this has helped. Previously he was on Prozac however did not like the way that it made bianca im feel. He does not currently see a psychiatrist, therapist or counselor. He previously saw a psychologist 3 years ago who recommended exposure therapy with the issues with driving however states that he was unable to do this therapy. Today his labs are within normal limits, CXR was negative, EKG without acute changes, no ST wave inversions or signs of ischemia, cardiology has recommended an echocardiogram and blood cultures overnight observation. Denies smoking or and only occasionally drinks alcohol. Allergies Allergy/AdvReac Type Severity Reaction Status Date / Time No Known Drug Allergies Allergy . Verified 10/15/21 14:02 GENERAL ANESTHESIA Allergy Intermediate COMBATIVE Uncoded 10/15/21 14:02 Home Medications Medication Instructions Recorded Confirmed Type metoprolol succinate 50 mg 50 mg PO DAILY 12/24/18 10/15/21 History tablet,extended release 24 hr (Toprol XL) multivitamin 1 tab PO DAILY 12/24/18 10/15/21 History aspirin 81 mg tablet,delayed 81 mg PO DAILY 05/07/21 10/15/21 History release lisinopril 5 mg tablet 5 mg PO DAILY 05/07/21 10/15/21 History Past Med/Surg History Medical History Dyslipidemia History of aortic aneurysm History of placement of internal cardiac defibrillator S/P removal, per patient request for inappropriate firing History of ventricular tachycardia Surgical History H/O repair of right rotator cuff History of tetralogy of Fallot repair S/P tendon repair Left biceps Status post aortic aneurysm repair s/p aortic valve repair and aortic root replacement with ascending aortic and hemiarch replacement Status post aortic valve repair Status post rotator cuff repair Family History Father Sudden , Onset Age: 60 Cardiomyopathy Mother Diabetes Aunt Sudden , Onset Age: 45 Social History Smoking Status: Never smoker Hx Alcohol Use: Yes Alcohol type: beer and wine Hx Substance Use: No Preferred Language: [place] Communication Ability: Effective Internal Salesperson Required: No Beliefs That Will Affect Care: None Current Living Situation: Spouse Feels Safe at Home: No Is there a partner from a previous relationship who is making you feel unsafe now?: No Safety Concerns: Feels Safe At This Time Assistive Devices: None Review of Systems Review of Systems: Constitutional: No fever, sweats or chills Eyes: No diplopia, no worsening or blurred vision ENT: normal hearing, no trouble swallowing Respiratory: No cough, sputum, dyspnea at rest or on exertion Cardiovascular: As per HPI, currently no chest pain, tightness or palpitations Abdomen: No pain, nausea, vomiting, diarrhea or constipation Musculoskeletal: No joint pain, calf pain, swelling Neurologic: No weakness, numbness/tingling, or balance problems Psychiatric: As per HPI, + anxiety, + agoraphobia Skin: No rash or itch Physical Exam Physical Exam: General: awake, alert, no apparent distress Head: Normocephalic, atraumatic ENT: PERRL, EOMI, no pharyngeal exudate, mucous membranes moist Chest: Clear to auscultation, on room air, no adventitious breath sounds Cardiac: Regular rate and rhythm, + loud click, no murmur, no JVD, normal peripheral pulses, good capillary refill, no chest pain on palpation Abdominal: NABS x 4 quadrants, soft, nondistended, nontender to palpation, no rebound or guarding Extremities: Normal inspection, no peripheral edema or erythema, calfs nontender to palpation Psych: Normal mood and affect Neuro: AAO x 3, strength intact bilaterally and rated 5/5, no motor deficits, speech is clear, no peripheral sensory deficits Results & Data Results & Data ([facility]) Vital Signs (Past 12 Hours) Vital Signs Temp Pulse Pulse Resp BP BP Pulse Ox 10/15/21 14:00 62 22 99 10/15/21 13:25 75 70 20 136/87 100 10/15/21 13:24 100 10/15/21 12:51 36.5 C 75 16 149/89 H 99 Laboratory Results 10/15/21 10/15/21 10/15/21 13:42 13:42 13:42 WBC RBC Hgb Hct MCV MCH MCHC RDW Std Deviation RDW Coeff of Ama Plt Count MPV Immature Gran % (Auto) Neut % (Auto) Lymph % (Auto) [place] % (Auto) Eos % (Auto) Baso % (Auto) Neut # (Auto) Lymph # (Auto) [place] # (Auto) Eos # (Auto) Baso # (Auto) Immature Gran # (Auto) PT INR APTT PTT Ratio Sodium Potassium Chloride Carbon Dioxide Anion Gap BUN Creatinine Est Cr Clr Drug Dosing Est GFR ( Amer) Est GFR (Non-Af Amer) BUN/Creatinine Ratio Glucose Calcium Magnesium Total Bilirubin AST ALT Alkaline Phosphatase Troponin I Total Protein Albumin Globulin Albumin/Globulin Ratio Lipase TSH 0.744 Urine Color Yellow Urine Appearance Clear Urine pH 8.5 H Ur Specific [place] 1.004 Urine Protein Negative Urine Glucose (UA) Negative Urine Ketones Negative Urine Blood Negative Urine Nitrite Negative Urine Bilirubin Negative Urine Urobilinogen Negative Ur Leukocyte Esterase Negative SARS-CoV-2, RNA, NAAT NEGATIVE 10/15/21 10/15/21 10/15/21 13:42 13:42 13:42 WBC 6.34 RBC 5.13 Hgb 15.8 Hct 44.0 MCV 85.8 MCH 30.8 MCHC 35.9 RDW Std Deviation 38.7 RDW Coeff of Ama 12.2 Plt Count 160 MPV 8.6 Immature Gran % (Auto) 0.3 Neut % (Auto) 69.6 Lymph % (Auto) 22.7 [place] % (Auto) 6.9 Eos % (Auto) 0.3 Baso % (Auto) 0.2 Neut # (Auto) 4.41 Lymph # (Auto) 1.44 [place] # (Auto) 0.44 Eos # (Auto) 0.02 Baso # (Auto) 0.01 Immature Gran # (Auto) 0.02 PT 11.4 INR 1.1 APTT 25.4 PTT Ratio 0.9 Sodium 140 Potassium 4.1 Chloride 106 Carbon Dioxide 26 Anion Gap 8 BUN 16 Creatinine 0.87 Est Cr Clr Drug Dosing 105.3 Est GFR ( Amer) 112.6 Est GFR (Non-Af Amer) 97.2 BUN/Creatinine Ratio 18.4 Glucose 110 H Calcium 10.3 H Magnesium 2.1 Total Bilirubin 0.8 AST 18 ALT 25 Alkaline Phosphatase 49 Troponin I < 0.03 Total Protein 7.2 Albumin 4.8 Globulin 2.4 L Albumin/Globulin Ratio 2.0 Lipase 23 TSH Urine Color Urine Appearance Urine pH Ur Specific [place] Urine Protein Urine Glucose (UA) Urine Ketones Urine Blood Urine Nitrite Urine Bilirubin Urine Urobilinogen Ur Leukocyte Esterase SARS-CoV-2, RNA, NAAT Diagnostic Findings Chest X-Ray 10/15/21 13:18 XR chest 1V portable CLINICAL HISTORY: Chest Pain. COMPARISON STUDY: 10/13/2021 TECHNIQUE: 1 view of the chest FINDINGS: Single frontal view of the chest demonstrates the heart size to again be enlarged status post previous cardiothoracic surgery. Wires are present from previous pacer. The lungs are clear of alveolar opacities. There is no evidence for pleural effusion. There is no evidence for vascular congestion. There is no acute osseous pathology. IMPRESSION: 1. No acute cardiopulmonary disease. ACT 112: Negative or not required by law. Electronically signed by: Remigio Duque M.D. 10/15/2021 3:09 PM ECG Additional Comments: [id number] 13:05:00 [facility]-EDSTAT ROUTINE RETRIEVAL Poor data quality, interpretation may be adversely affected Normal sinus rhythm Non-specific intra-ventricular conduction block Abnormal ECG When compared with ECG of 13-OCT-2021 01:58, Nonspecific T wave abnormality now evident in Lateral leads 25mm/[id number] 241CID: 15Unconfirmed Vent. rate 68 BPM TX interval 182 ms QRS duration 152 ms QT/QTc 418/444 ms Supervising Physician Co-Signing Physician Notes Patient is a 56-year-old male with complex medical history presents with history of palpitations associated with shortness of breath and fatigue which wakes him up at the middle of the night. Patient also states being anxious and having intermittent panic attacks. He also admits to noticing skipped beats. Patient states being worried about his medical problems but otherwise no other stressors. He was evaluated by his PCP yesterday and was scheduled for cardiology evaluation today. Patient complained of chest tightness associated malaise and palpitations. Please review HPI for complete details of presentation. Blood work reviewed and fairly unremarkable. Initial troponin is negative. TSH within normal limits. X-ray showed no acute cardiopulmonary disease. On exam patient is moderately built and nourished, no apparent distress, normocephalic atraumatic, EOMI, normal breath sounds, clear to auscultation, S1-S2,+ murmur, no pedal edema, abdomen soft, nontender, normal bowel sounds, alert, awake, oriented, grossly no focal deficits. Patient is admitted for management of palpitations, anxiety issues. Appreciate cardiology input. Check resting echo. Trend cardiac enzymes. Continue home medications including aspirin, metoprolol. Monitor on telemetry for arrhythmias. Blood cultures obtained to rule out infection. Consulted psychiatry on patient's request to help with anxiety issues. I personally reviewed the record. Patient is interviewed and examined at bedside. Patient's care is coordinated with Sonal Chao PA-C. Please refer to the documentation above for details of patient's presentation and for discussion of other issues. (1) Chest pain Chest pain type: unspecified Qualified Code(s): R07.9 - Chest pain, unspecified
[2021-10-15] MEDS ORDERED: ONDANSETRON INJ 2 MG/ML 2 ML VIAL IV PRN (16:43)
[2021-10-15] MEDS ORDERED: ZOLPIDEM TARTRATE 5 MG TAB PO PRN (18:12)
[2021-10-15] MEDS: ACETAMINOPHEN 325 MG TAB PO PRN (20:48)
[2021-10-16 04:54] LABS: Hematocrit (blood only) 41.7 % (42-52); Hemoglobin 14.8 g/dL (14.0-18.0); Mean Corpuscular Hemoglobin 30.7 pg (25-34); Mean Corpuscular Hgb Conc 35.5 g/dL (32-36); Mean Corpuscular Volume 86.5 fL (80-100); Mean Platelet Volume 8.9 fL (7.4-10.4); Platelet Count 135 K/uL (130-400); RDW Coefficient of Variation 12.4 % (11.5-14.5); RDW Standard Deviation 39.4 fL (36.4-46.3); Red Blood Count 4.82 M/uL (4.7-6.1); White Blood Count 4.85 K/uL (4.8-10.8)
[2021-10-16 05:18] LABS: Troponin I < 0.03 ng/ml (0-0.04)
[2021-10-16 05:40] LABS: Alanine Aminotransferase 21 U/L (7-52); Albumin Globulin Ratio 1.5 (0.9-2); Alkaline Phosphatase 43 U/L (34-104); Anion Gap 6 (3-11); Aspartate Aminotransferase 15 U/L (13-39); BUN Creatinine Ratio 24.4 (10-20); Bilirubin,Total 0.8 mg/dl (0.2-1.0); Blood Urea Nitrogen 20 mg/dl (6-23); Calcium 8.2 mg/dl (8.5-10.1); Carbon Dioxide 25 mmol/L (21-32); Chloride 106 mmol/L (98-107); Chol HDL Ratio 4.7 (0-5); Cholesterol 197 mg/dl (0-200); Creatinine Clr Calc Pharmacy 134.4 ml/min; Est GFR (African American) 115.4 ml/min; Est GFR (Non-African American) 99.6 ml/min; Globulin 2.7 gm/dl (2.5-4.0); Glucose 100 mg/dl (70-99(Fasting)); HDL Cholesterol 42 mg/dl; LDL Cholesterol Calculated 136 mg/dl; Magnesium 2.1 mg/dl (1.7-2.4); Potassium 3.8 mmol/L (3.5-5.1); Sodium 137 mmol/L (136-145); Total Protein 6.7 gm/dl (6.0-8.3); Triglycerides 93 mg/dl (0-150); VLDL Cholesterol 19 mg/dl (0-30)
--- NOTE | 2021-10-16 06:25 | Electrocardiogram Report ---
Test Reason : Blood Pressure : / mmHG Vent. Rate : 068 BPM Atrial Rate : 068 BPM P-R Int : 182 ms QRS Dur : 152 ms QT Int : 418 ms P-R-T Axes : 012 005 -06 degrees QTc Int : 444 ms Poor data quality, interpretation may be adversely affected Normal sinus rhythm Right bundle branch block Abnormal ECG When compared with ECG of 13-OCT-2021 01:58, Nonspecific T wave abnormality now evident in Anterolateral leads Confirmed by Praveen Flynn ([id number]) on 10/16/2021 6:25:33 AM Referred By: Confirmed By:Praveen Flynn
[2021-10-16] MEDS ORDERED: ASPIRIN 81 MG ECTAB PO SCH (09:00)
[2021-10-16] MEDS ORDERED: METOPROLOL SUCC 50MG EXT REL TAB PO SCH (09:00)
[2021-10-16] MEDS ORDERED: MULTIVITAMIN TAB PO SCH (09:00)
[2021-10-16] MEDS ORDERED: lisinopril 5 MG TAB PO SCH (09:00)
[2021-10-16] MEDS: ACETAMINOPHEN 325 MG TAB PO PRN (09:52)
--- NOTE | 2021-10-16 11:59 | Cardiology Progress Note ---
Date of Service October 16, 2021 Assessment & Plan (1) Palpitation: (2) Status post aortic aneurysm repair: (3) History of tetralogy of Fallot repair: Plan: Patient is a 56-year-old male with complex history as outlined with adult congenital heart disease status post Tetralogy of Fallot repair at age 6 and subsequent a sending aortic aneurysm repair 2007. Patient has been experiencing symptoms of awakening from sleep with heart pounding and shortness of breath. No acute findings on EKG or CT scan of the chest. Patient carries prior history of sustained ventricular tachycardia and prior pacer defibrillator implantation, removed at time of battery expiration at patient request Echocardiogram without acute findings with excellent long-term surgical repair. Plan: No acute findings or arrhythmias overnight overall well this morning We will arrange for Zio patch AT x2 weeks post hospital discharge given past history of structural heart disease and prior ventricular tachycardia, recent symptoms of tachypalpitations at night Suggest nocturnal oximetry/sleep evaluation post discharge Admission and Anticipated Discharge Date Admission Date: October 15, 2021 Subjective Patient seen and examined, chart, medications, telemetry reviewed. Overall feels relatively well this morning no arrhythmias on telemetry overnight. No fevers or chills. No chest discomfort. Patient ambulatory in room without difficulty. Review of Systems Review of Systems: All systems reviewed & are unremarkable except as noted in Subjective Physical Exam Constitutional: WD/WN, vitals as above Eyes: PERRL, conjunctivae normal, anicteric sclerae ENMT: external ear and nose normal, oropharynx normal Neck: trachea midline, no thyromegaly Respiratory: normal respiratory effort, lungs clear to auscultation Cardiovascular: Rate/Rhythm: regular rate and regular rhythm Heart Sounds: + murmur (Grade 1-2 or 6 systolic no diastolic murmur) Palpation: normal PMI Vessels: no JVD Extremities: no edema Chest (Breasts): normal inspection/palpation of breasts Gastrointestinal (Abdomen): normal bowel sounds, soft, nontender, no hepatosplenomegaly Musculoskeletal: no cyanosis or clubbing, extremities motor strength 5/5 Neurologic: PERRL, EOMI, accommodation nl, no face palsy, no dysarthria Results & Data ([facility]) Vital Signs (Past 12 Hours) Vital Signs Temp Pulse Pulse Resp BP Pulse Ox 10/16/21 09:00 61 10/16/21 07:47 36.7 C 59 L 15 138/82 97 10/16/21 04:08 36.8 C 59 L 18 136/77 96 Laboratory Results Laboratory Results - last 24 hr 10/15/21 10/15/21 10/15/21 13:42 13:42 13:42 WBC 6.34 RBC 5.13 Hgb 15.8 Hct 44.0 MCV 85.8 MCH 30.8 MCHC 35.9 RDW Std Deviation 38.7 RDW Coeff of Ama 12.2 Plt Count 160 MPV 8.6 Immature Gran % (Auto) 0.3 Neut % (Auto) 69.6 Lymph % (Auto) 22.7 [place] % (Auto) 6.9 Eos % (Auto) 0.3 Baso % (Auto) 0.2 Neut # (Auto) 4.41 Lymph # (Auto) 1.44 [place] # (Auto) 0.44 Eos # (Auto) 0.02 Baso # (Auto) 0.01 Immature Gran # (Auto) 0.02 PT 11.4 INR 1.1 APTT 25.4 PTT Ratio 0.9 Sodium 140 Potassium 4.1 Chloride 106 Carbon Dioxide 26 Anion Gap 8 BUN 16 Creatinine 0.87 Est Cr Clr Drug Dosing 105.3 Est GFR ( Amer) 112.6 Est GFR (Non-Af Amer) 97.2 BUN/Creatinine Ratio 18.4 Glucose 110 H Calcium 10.3 H Magnesium 2.1 Total Bilirubin 0.8 AST 18 ALT 25 Alkaline Phosphatase 49 Troponin I < 0.03 Total Protein 7.2 Albumin 4.8 Globulin 2.4 L Albumin/Globulin Ratio 2.0 Triglycerides Cholesterol LDL Cholesterol, Calc VLDL Cholesterol, Calc HDL Cholesterol Cholesterol/HDL Ratio Lipase 23 TSH Urine Color Urine Appearance Urine pH Ur Specific [place] Urine Protein Urine Glucose (UA) Urine Ketones Urine Blood Urine Nitrite Urine Bilirubin Urine Urobilinogen Ur Leukocyte Esterase SARS-CoV-2, RNA, NAAT 10/15/21 10/15/21 10/15/21 13:42 13:42 13:42 WBC RBC Hgb Hct MCV MCH MCHC RDW Std Deviation RDW Coeff of Aam Plt Count MPV Immature Gran % (Auto) Neut % (Auto) Lymph % (Auto) [place] % (Auto) Eos % (Auto) Baso % (Auto) Neut # (Auto) Lymph # (Auto) [place] # (Auto) Eos # (Auto) Baso # (Auto) Immature Gran # (Auto) PT INR APTT PTT Ratio Sodium Potassium Chloride Carbon Dioxide Anion Gap BUN Creatinine Est Cr Clr Drug Dosing Est GFR ( Amer) Est GFR (Non-Af Amer) BUN/Creatinine Ratio Glucose Calcium Magnesium Total Bilirubin AST ALT Alkaline Phosphatase Troponin I Total Protein Albumin Globulin Albumin/Globulin Ratio Triglycerides Cholesterol LDL Cholesterol, Calc VLDL Cholesterol, Calc HDL Cholesterol Cholesterol/HDL Ratio Lipase TSH 0.744 Urine Color Yellow Urine Appearance Clear Urine pH 8.5 H Ur Specific [place] 1.004 Urine Protein Negative Urine Glucose (UA) Negative Urine Ketones Negative Urine Blood Negative Urine Nitrite Negative Urine Bilirubin Negative Urine Urobilinogen Negative Ur Leukocyte Esterase Negative SARS-CoV-2, RNA, NAAT NEGATIVE 10/15/21 10/16/21 10/16/21 20:21 04:41 04:41 WBC 4.85 RBC 4.82 Hgb 14.8 Hct 41.7 L MCV 86.5 MCH 30.7 MCHC 35.5 RDW Std Deviation 39.4 RDW Coeff of Ama 12.4 Plt Count 135 MPV 8.9 Immature Gran % (Auto) Neut % (Auto) Lymph % (Auto) [place] % (Auto) Eos % (Auto) Baso % (Auto) Neut # (Auto) Lymph # (Auto) [place] # (Auto) Eos # (Auto) Baso # (Auto) Immature Gran # (Auto) PT INR APTT PTT Ratio Sodium 137 Potassium 3.8 Chloride 106 Carbon Dioxide 25 Anion Gap 6 BUN 20 Creatinine 0.82 Est Cr Clr Drug Dosing 134.4 Est GFR ( Amer) 115.4 Est GFR (Non-Af Amer) 99.6 BUN/Creatinine Ratio 24.4 H Glucose 100 H Calcium 8.2 L D Magnesium 2.1 Total Bilirubin 0.8 AST 15 ALT 21 Alkaline Phosphatase 43 Troponin I < 0.03 < 0.03 Total Protein 6.7 Albumin 4.0 Globulin 2.7 Albumin/Globulin Ratio 1.5 Triglycerides 93 Cholesterol 197 LDL Cholesterol, Calc 136 VLDL Cholesterol, Calc 19 HDL Cholesterol 42 Cholesterol/HDL Ratio 4.7 Lipase TSH Urine Color Urine Appearance Urine pH Ur Specific [place] Urine Protein Urine Glucose (UA) Urine Ketones Urine Blood Urine Nitrite Urine Bilirubin Urine Urobilinogen Ur Leukocyte Esterase SARS-CoV-2, RNA, NAAT Diagnostic Findings Echocardiogram Echocardiogram 10/15/2021 Normal left ventricular size. Moderate to severe left hypertrophy Surgically repaired tetralogy of Fallot with overriding aorta and surgically repaired ascending aorta with resuspension of the aortic valve No ventricular septal defect Normal wall motion and function EF 60 to 65% The aortic valve has mild thickening of the left coronary cusp and trace aortic insufficiency There is mild mitral insufficiency
--- NOTE | 2021-10-16 12:21 | Psychiatric Consultation ---
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 Has some PTSD like qualities following his cardiac event in 2001 but doesn't meet full criteria for PTSD based on todays exam (though limited) (1) Generalized anxiety disorder: Risks/benefits/alternatives reviewed re: antidepressants for the treatment of depression and/or anxiety. A trial of Zoloft 25 mg to start would be recommended. He remained concerned about potential side effects and reviewed that he could even cut the dose in half and that Zoloft is generally less activating than Prozac. Risks/benefits/alternatives reviewed re: lorazepam 0.5 mg for breakthrough panic, short supply. Patient is aware habit forming and should not drive/combine with Etoh, etc. He is low risk for misuse/diversion. Risk Factors Assessment Do You Have Access To A Gun?: Yes (feels safe with them, never SI) Psych History Identifying Data Mr. Brennan is a 56-year-old male from [place], admitted 09/16/21 for CP. Patient requested psychiatric consult for anxiety. Chief Complaint "I was always the rock and now I just worry about dying". History of Present Illness He reports an episode of syncope where he woke up to being intubated/defibrillated in 2001. Had to have his implantable defibrillator removed as malfunctioned. Since that time he had more empathy for patients and made it harder to be a recording studio internship. He thinks of all of scenarios of how he could "as I've seen them". He shifted to case work with the [employer] which is "less stressful than running with EMS for 15 years". He has taken Ativan in the hospital prn with benefit. He denies ever having suicidal ideation. He gets anxious in open spaces and sometimes while driving. He would like to resume work with a therapist on redirected his anxious thoughts, particularly about his health. He is not particularly excited to try another medication as tried Prozac several years ago and caused racing thoughts. He is unsure of dose. Past Psychiatric History Previous Psych History: reported he may have seen a provider at [facility] prior to seeing a therapist Genny at [facility]. Outpatient Services: no current Previous Psych Admissions: none Do You Have Access To A Gun?: Yes (feels safe with them, never SI) History of Previous Suicide Attempt: No Past Medication Trials: Prozac "racing thoughts" Allergies Allergy/AdvReac Type Severity Reaction Status Date / Time No Known Drug Allergies Allergy . Verified 10/15/21 14:02 GENERAL ANESTHESIA Allergy Intermediate COMBATIVE Uncoded 10/15/21 14:02 Home Medications Medication Instructions Recorded Confirmed Type metoprolol succinate 50 mg 50 mg PO DAILY 12/24/18 10/15/21 History tablet,extended release 24 hr (Toprol XL) multivitamin 1 tab PO DAILY 12/24/18 10/15/21 History aspirin 81 mg tablet,delayed 81 mg PO DAILY 05/07/21 10/15/21 History release lisinopril 5 mg tablet 5 mg PO DAILY 05/07/21 10/15/21 History Family History mother has dementia, father/uncles ETOH; no family hx suicide Substance Abuse History 1 beer or 1 glass of wine 2-3X/week Personal History Highest Grade Completed: Graduate School Employment Status: Beauty Culturist Apprentice Employed Marital Status: ( had breast CA) Beliefs That Will Affect Care: None History of Legal Problems: no Psychological Trauma History Comment: denies abuse hx Patient History Medical History (Updated 10/16/21 @ 12:33 by Lorie Ga MD) Dyslipidemia History of aortic aneurysm History of placement of internal cardiac defibrillator S/P removal, per patient request for inappropriate firing History of ventricular tachycardia Surgical History H/O repair of right rotator cuff History of tetralogy of Fallot repair S/P tendon repair Left biceps Status post aortic aneurysm repair s/p aortic valve repair and aortic root replacement with ascending aortic and hemiarch replacement Status post aortic valve repair Status post rotator cuff repair Family History Father Sudden , Onset Age: 60 Cardiomyopathy Mother Diabetes Aunt Sudden , Onset Age: 45 Social History Smoking Status: Never smoker Hx Alcohol Use: Yes Alcohol type: beer and wine Hx Substance Use: No Preferred Language: Serbian Communication Ability: Effective Mobile Ui Designer Required: No Beliefs That Will Affect Care: None marital status: Current Living Situation: Spouse How many Children do You have: 2 Feels Safe at Home: No Is there a partner from a previous relationship who is making you feel unsafe now?: No Safety Concerns: Feels Safe At This Time Assistive Devices: None Physical Exam Psychiatric: Orientation: alert and oriented x 3 Apperance: appropriately dressed and appropriately groomed Eye Contact: good eye contact Motor Behavior: no abnormal motor movements Speech: normal rate/rhythm/volume of speech Affect: euthymic affect Mood: + anxious mood Thought Process: goal directed thought process Thought Content: reality based without delusions Suicidal Thoughts: denies suicidal thoughts Homicidal Thoughts: denies homicidal thoughts Hallucinations: no auditory hallucinations and no visual hallucinations Cognition: attention grossly intact and language grossly intact Estimated Intelligence: consistent with education level Insight: good insight Vital Signs (Past 24 Hours): Last Vital Signs Temp 36.7 C 10/16/21 07:47 Pulse 61 10/16/21 09:00 Resp 15 10/16/21 07:47 BP 138/82 10/16/21 07:47 Pulse Ox 97 10/16/21 07:47 Review of Systems All systems reviewed & are unremarkable except as noted in HPI & below Results & Data (PSY) Laboratory Results 10/16/21 10/16/21 10/15/21 Range/Units 04:41 04:41 20:21 WBC 4.85 (4.8-10.8) K/uL RBC 4.82 (4.7-6.1) M/uL Hgb 14.8 (14.0-18.0) g/dL Hct 41.7 L (42-52) % MCV 86.5 (80-100) fL MCH 30.7 (25-34) pg MCHC 35.5 (32-36) g/dL RDW Std Deviation 39.4 (36.4-46.3) fL RDW Coeff of Ama 12.4 (11.5-14.5) % Plt Count 135 (130-400) K/uL MPV 8.9 (7.4-10.4) fL Immature Gran % (Auto) % Neut % (Auto) % Lymph % (Auto) % [place] % (Auto) % Eos % (Auto) % Baso % (Auto) % Neut # (Auto) (1.4-6.5) K/uL Lymph # (Auto) (1.2-3.4) K/uL [place] # (Auto) (0.11-0.59) K/uL Eos # (Auto) (0-0.5) K/uL Baso # (Auto) (0-0.2) K/uL Immature Gran # (Auto) (0.00-0.02) K/uL PT (9.0-12.0) Seconds INR (0.9-1.1) APTT (21.0-31.0) Seconds PTT Ratio Sodium 137 (136-145) mmol/L Potassium 3.8 (3.5-5.1) mmol/L Chloride 106 (98-107) mmol/L Carbon Dioxide 25 (21-32) mmol/L Anion Gap 6 (3-11) BUN 20 (6-23) mg/dl Creatinine 0.82 (0.6-1.4) mg/dl Est Cr Clr Drug Dosing 134.4 ml/min Est GFR ( Amer) 115.4 ml/min Est GFR (Non-Af Amer) 99.6 ml/min BUN/Creatinine Ratio 24.4 H (10-20) Glucose 100 H (70-99(Fasting)) mg/dl Calcium 8.2 L D (8.5-10.1) mg/dl Magnesium 2.1 (1.7-2.4) mg/dl Total Bilirubin 0.8 (0.2-1.0) mg/dl AST 15 (13-39) U/L ALT 21 (7-52) U/L Alkaline Phosphatase 43 (34-104) U/L Troponin I < 0.03 < 0.03 (0-0.04) ng/ml Total Protein 6.7 (6.0-8.3) gm/dl Albumin 4.0 (3.4-5.0) gm/dl Globulin 2.7 (2.5-4.0) gm/dl Albumin/Globulin Ratio 1.5 (0.9-2) Triglycerides 93 (0-150) mg/dl Cholesterol 197 (0-200) mg/dl LDL Cholesterol, Calc 136 mg/dl VLDL Cholesterol, Calc 19 (0-30) mg/dl HDL Cholesterol 42 mg/dl Cholesterol/HDL Ratio 4.7 (0-5) Lipase (11-82) U/L TSH (0.300-4.500) uIu/ml Urine Color Urine Appearance (Clear) Urine pH (4.5-7.5) Ur Specific [place] (1.000-1.030) Urine Protein (Negative) Urine Glucose (UA) (Negative) Urine Ketones (Negative) Urine Blood (Negative) Urine Nitrite (Negative) Urine Bilirubin (Negative) Urine Urobilinogen (Negative) Ur Leukocyte Esterase (Negative) SARS-CoV-2, RNA, NAAT (NEGATIVE) 10/15/21 10/15/21 10/15/21 Range/Units 13:42 13:42 13:42 WBC (4.8-10.8) K/uL RBC (4.7-6.1) M/uL Hgb (14.0-18.0) g/dL Hct (42-52) % MCV (80-100) fL MCH (25-34) pg MCHC (32-36) g/dL RDW Std Deviation (36.4-46.3) fL RDW Coeff of Ama (11.5-14.5) % Plt Count (130-400) K/uL MPV (7.4-10.4) fL Immature Gran % (Auto) % Neut % (Auto) % Lymph % (Auto) % [place] % (Auto) % Eos % (Auto) % Baso % (Auto) % Neut # (Auto) (1.4-6.5) K/uL Lymph # (Auto) (1.2-3.4) K/uL [place] # (Auto) (0.11-0.59) K/uL Eos # (Auto) (0-0.5) K/uL Baso # (Auto) (0-0.2) K/uL Immature Gran # (Auto) (0.00-0.02) K/uL PT (9.0-12.0) Seconds INR (0.9-1.1) APTT (21.0-31.0) Seconds PTT Ratio Sodium (136-145) mmol/L Potassium (3.5-5.1) mmol/L Chloride (98-107) mmol/L Carbon Dioxide (21-32) mmol/L Anion Gap (3-11) BUN (6-23) mg/dl Creatinine (0.6-1.4) mg/dl Est Cr Clr Drug Dosing ml/min Est GFR ( Amer) ml/min Est GFR (Non-Af Amer) ml/min BUN/Creatinine Ratio (10-20) Glucose (70-99(Fasting)) mg/dl Calcium (8.5-10.1) mg/dl Magnesium (1.7-2.4) mg/dl Total Bilirubin (0.2-1.0) mg/dl AST (13-39) U/L ALT (7-52) U/L Alkaline Phosphatase (34-104) U/L Troponin I (0-0.04) ng/ml Total Protein (6.0-8.3) gm/dl Albumin (3.4-5.0) gm/dl Globulin (2.5-4.0) gm/dl Albumin/Globulin Ratio (0.9-2) Triglycerides (0-150) mg/dl Cholesterol (0-200) mg/dl LDL Cholesterol, Calc mg/dl VLDL Cholesterol, Calc (0-30) mg/dl HDL Cholesterol mg/dl Cholesterol/HDL Ratio (0-5) Lipase (11-82) U/L TSH 0.744 (0.300-4.500) uIu/ml Urine Color Yellow Urine Appearance Clear (Clear) Urine pH 8.5 H (4.5-7.5) Ur Specific [place] 1.004 (1.000-1.030) Urine Protein Negative (Negative) Urine Glucose (UA) Negative (Negative) Urine Ketones Negative (Negative) Urine Blood Negative (Negative) Urine Nitrite Negative (Negative) Urine Bilirubin Negative (Negative) Urine Urobilinogen Negative (Negative) Ur Leukocyte Esterase Negative (Negative) SARS-CoV-2, RNA, NAAT NEGATIVE (NEGATIVE) 10/15/21 10/15/21 10/15/21 Range/Units 13:42 13:42 13:42 WBC 6.34 (4.8-10.8) K/uL RBC 5.13 (4.7-6.1) M/uL Hgb 15.8 (14.0-18.0) g/dL Hct 44.0 (42-52) % MCV 85.8 (80-100) fL MCH 30.8 (25-34) pg MCHC 35.9 (32-36) g/dL RDW Std Deviation 38.7 (36.4-46.3) fL RDW Coeff of Ama 12.2 (11.5-14.5) % Plt Count 160 (130-400) K/uL MPV 8.6 (7.4-10.4) fL Immature Gran % (Auto) 0.3 % Neut % (Auto) 69.6 % Lymph % (Auto) 22.7 % [place] % (Auto) 6.9 % Eos % (Auto) 0.3 % Baso % (Auto) 0.2 % Neut # (Auto) 4.41 (1.4-6.5) K/uL Lymph # (Auto) 1.44 (1.2-3.4) K/uL [place] # (Auto) 0.44 (0.11-0.59) K/uL Eos # (Auto) 0.02 (0-0.5) K/uL Baso # (Auto) 0.01 (0-0.2) K/uL Immature Gran # (Auto) 0.02 (0.00-0.02) K/uL PT 11.4 (9.0-12.0) Seconds INR 1.1 (0.9-1.1) APTT 25.4 (21.0-31.0) Seconds PTT Ratio 0.9 Sodium 140 (136-145) mmol/L Potassium 4.1 (3.5-5.1) mmol/L Chloride 106 (98-107) mmol/L Carbon Dioxide 26 (21-32) mmol/L Anion Gap 8 (3-11) BUN 16 (6-23) mg/dl Creatinine 0.87 (0.6-1.4) mg/dl Est Cr Clr Drug Dosing 105.3 ml/min Est GFR ( Amer) 112.6 ml/min Est GFR (Non-Af Amer) 97.2 ml/min BUN/Creatinine Ratio 18.4 (10-20) Glucose 110 H (70-99(Fasting)) mg/dl Calcium 10.3 H (8.5-10.1) mg/dl Magnesium 2.1 (1.7-2.4) mg/dl Total Bilirubin 0.8 (0.2-1.0) mg/dl AST 18 (13-39) U/L ALT 25 (7-52) U/L Alkaline Phosphatase 49 (34-104) U/L Troponin I < 0.03 (0-0.04) ng/ml Total Protein 7.2 (6.0-8.3) gm/dl Albumin 4.8 (3.4-5.0) gm/dl Globulin 2.4 L (2.5-4.0) gm/dl Albumin/Globulin Ratio 2.0 (0.9-2) Triglycerides (0-150) mg/dl Cholesterol (0-200) mg/dl LDL Cholesterol, Calc mg/dl VLDL Cholesterol, Calc (0-30) mg/dl HDL Cholesterol mg/dl Cholesterol/HDL Ratio (0-5) Lipase 23 (11-82) U/L TSH (0.300-4.500) uIu/ml Urine Color Urine Appearance (Clear) Urine pH (4.5-7.5) Ur Specific [place] (1.000-1.030) Urine Protein (Negative) Urine Glucose (UA) (Negative) Urine Ketones (Negative) Urine Blood (Negative) Urine Nitrite (Negative) Urine Bilirubin (Negative) Urine Urobilinogen (Negative) Ur Leukocyte Esterase (Negative) SARS-CoV-2, RNA, NAAT (NEGATIVE) Medications Administered Acetaminophen (Acetaminophen 325 Mg Tab) 650 mg PO Q4H PRN PRN Reason: Moderate Pain Stop: 11/14/21 16:42 Last Admin: 10/16/21 09:52 Dose: 650 mg Documented by: [id number] Admin: 10/15/21 20:48 Dose: 650 mg Documented by: [id number] Aspirin (Aspirin 81 Mg Ectab) 81 mg PO DAILY [facility] Stop: 11/15/21 08:59 Last Admin: 10/16/21 09:41 Dose: 81 mg Documented by: [id number] Lisinopril (Lisinopril 5 Mg Tab) 5 mg PO DAILY [facility] Stop: 11/15/21 08:59 Last Admin: 10/16/21 09:41 Dose: 5 mg Documented by: [id number] Metoprolol Succinate (Metoprolol Succ 50mg Ext Rel Tab) 50 mg PO DAILY [facility] Stop: 11/15/21 08:59 Last Admin: 10/16/21 09:45 Dose: 50 mg Documented by: [id number] Multivitamins (Multivitamin Tab) 1 tab PO QAM [facility] Stop: 11/15/21 08:59 Last Admin: 10/16/21 09:41 Dose: 1 tab Documented by: [id number] Zolpidem Tartrate (Zolpidem Tartrate 5 Mg Tab) 5 mg PO HS PRN PRN Reason: Sleep Stop: 11/14/21 18:11 Last Admin: 10/15/21 20:47 Dose: 5 mg Documented by: [id number] Coding Level of Care Code 66405 Office/OBS Consult Lvl 3 Diagnoses Generalized anxiety disorder F41.1
--- NOTE | 2021-10-16 13:28 | Discharge Summary ---
Date of Service October 16, 2021 Admission HPI Per Admitting Provider This is a 56 yo M with PMhx of tetralogy of Fallot repair, aortic aneurysm repair, V. tach s/p defibrillator however battery is currently inactive, HLD, who presented to the ER in the early childhood assistant of 10/13/21 for similar complaints. At that time his labs were negative, CXR and CTPE were negative for acute findings and he was referred for outpatient cardiology follow-up soon. Over the past 24 to 36 hours he has developed worsening chest pain and chest tightness, and was referred by cardiology office to come directly to the hospital for further work-up. At times he has felt like the palpitations of chest pain have been waking him up at night. He denies any radiation to other locations. He admits to associated shortness of breath. Currently he denies any chest pain or SOB. He admits that there is a anxiety component as he typically feels a strong anxious component when palpitations are occurring. He feels that his triggers are related to specifically driving in open spaces. He describes a scenario in 2001 where he was at a grocery store, reaching for something and then all of a sudden passed out, when he awoke he had underwent intubation and extubation and required defibrillator insertion for episode of V. tach. 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 He is requesting psychiatry consultation if possible. He has tried Ativan in the past 2 days and states that this has helped. Previously he was on Prozac however did not like the way that it made him feel. He does not currently see a psychiatrist, therapist or counselor. He previously saw a psychologist 3 years ago who recommended exposure therapy with the issues with driving however states that he was unable to do this therapy. Today his labs are within normal limits, CXR was negative, EKG without acute changes, no ST wave inversions or signs of ischemia, cardiology has recommended an echocardiogram and blood cultures overnight observation. Denies smoking or and only occasionally drinks alcohol. Admission Exam Per Admitting Provider General: awake, alert, no apparent distress Head: Normocephalic, atraumatic ENT: PERRL, EOMI, no pharyngeal exudate, mucous membranes moist Chest: Clear to auscultation, on room air, no adventitious breath sounds Cardiac: Regular rate and rhythm, + loud click, no murmur, no JVD, normal peripheral pulses, good capillary refill, no chest pain on palpation Abdominal: NABS x 4 quadrants, soft, nondistended, nontender to palpation, no rebound or guarding Extremities: Normal inspection, no peripheral edema or erythema, calfs nontender to palpation Psych: Normal mood and affect Neuro: AAO x 3, strength intact bilaterally and rated 5/5, no motor deficits, speech is clear, no peripheral sensory deficits Principal Diagnosis Palpitation s/p aortic aneurysm repair h/o tetralogy of Fallot repair Discharge Exam CONSTITUTIONAL: WNWD, vitals as above, generally well-appearing, NAD EYES: normal conjunctivae, no scleral icterus ENT: external ear and nose normal, MMM NECK: trachea midline RESPIRATORY: clear to auscultation bilaterally, no crackles, rales or wheezes, normal respiratory effort CARDIOVASCULAR: regular rate and rhythm, S1 and 2 heard without murmurs, gallops or rubs, no JVD, no peripheral edema CHEST: inspection of chest was normal GASTROINTESTINAL: soft, nontender, ND, no guarding MUSCULOSKELETAL: strength 5/5 throughout, head is normocephalic and atraumatic SKIN: warm and dry NEUROLOGIC: CN 2-12 grossly intact, normal cognition, normal speech, no tremor, no gross focal deficits. PSYCHIATRIC: alert cooperative and oriented to person, place and time. Euthymic mood, makes good eye contact, language grossly intact, recent and remote memory grossly intact. Discharge Data Allergies Allergy/AdvReac Type Severity Reaction Status Date / Time No Known Drug Allergies Allergy . Verified 10/15/21 14:02 GENERAL ANESTHESIA Allergy Intermediate COMBATIVE Uncoded 10/15/21 14:02 Consultations 10/15/21 13:41 Consult Cardiology Stat 10/15/21 15:16 ED Decision to Admit Stat 10/15/21 16:19 Consult Psychiatry Routine 10/15/21 16:43 Consult Cardiology Routine Ordered Studies Laboratory Results WBC 4.85 K/uL (4.8-10.8) 10/16/21 04:41 RBC 4.82 M/uL (4.7-6.1) 10/16/21 04:41 Hgb 14.8 g/dL (14.0-18.0) 10/16/21 04:41 Hct 41.7 % (42-52) L 10/16/21 04:41 MCV 86.5 fL (80-100) 10/16/21 04:41 MCH 30.7 pg (25-34) 10/16/21 04:41 MCHC 35.5 g/dL (32-36) 10/16/21 04:41 RDW Std Deviation 39.4 fL (36.4-46.3) 10/16/21 04:41 RDW Coeff of Ama 12.4 % (11.5-14.5) 10/16/21 04:41 Plt Count 135 K/uL (130-400) 10/16/21 04:41 MPV 8.9 fL (7.4-10.4) 10/16/21 04:41 Immature Gran % (Auto) 0.3 % 10/15/21 13:42 Neut % (Auto) 69.6 % 10/15/21 13:42 Lymph % (Auto) 22.7 % 10/15/21 13:42 [place] % (Auto) 6.9 % 10/15/21 13:42 Eos % (Auto) 0.3 % 10/15/21 13:42 Baso % (Auto) 0.2 % 10/15/21 13:42 Neut # (Auto) 4.41 K/uL (1.4-6.5) 10/15/21 13:42 Lymph # (Auto) 1.44 K/uL (1.2-3.4) 10/15/21 13:42 [place] # (Auto) 0.44 K/uL (0.11-0.59) 10/15/21 13:42 Eos # (Auto) 0.02 K/uL (0-0.5) 10/15/21 13:42 Baso # (Auto) 0.01 K/uL (0-0.2) 10/15/21 13:42 Immature Gran # (Auto) 0.02 K/uL (0.00-0.02) 10/15/21 13:42 PT 11.4 Seconds (9.0-12.0) 10/15/21 13:42 INR 1.1 (0.9-1.1) 10/15/21 13:42 APTT 25.4 Seconds (21.0-31.0) 10/15/21 13:42 PTT Ratio 0.9 10/15/21 13:42 Sodium 137 mmol/L (136-145) 10/16/21 04:41 Potassium 3.8 mmol/L (3.5-5.1) 10/16/21 04:41 Chloride 106 mmol/L (98-107) 10/16/21 04:41 Carbon Dioxide 25 mmol/L (21-32) 10/16/21 04:41 Anion Gap 6 (3-11) 10/16/21 04:41 BUN 20 mg/dl (6-23) 10/16/21 04:41 Creatinine 0.82 mg/dl (0.6-1.4) 10/16/21 04:41 Est Cr Clr Drug Dosing 134.4 ml/min 10/16/21 04:41 Est GFR ( Amer) 115.4 ml/min 10/16/21 04:41 Est GFR (Non-Af Amer) 99.6 ml/min 10/16/21 04:41 BUN/Creatinine Ratio 24.4 (10-20) H 10/16/21 04:41 Glucose 100 mg/dl (70-99(Fasting)) H 10/16/21 04:41 Calcium 8.2 mg/dl (8.5-10.1) L D 10/16/21 04:41 Magnesium 2.1 mg/dl (1.7-2.4) 10/16/21 04:41 Total Bilirubin 0.8 mg/dl (0.2-1.0) 10/16/21 04:41 AST 15 U/L (13-39) 10/16/21 04:41 ALT 21 U/L (7-52) 10/16/21 04:41 Alkaline Phosphatase 43 U/L (34-104) 10/16/21 04:41 Troponin I < 0.03 ng/ml (0-0.04) 10/16/21 04:41 Total Protein 6.7 gm/dl (6.0-8.3) 10/16/21 04:41 Albumin 4.0 gm/dl (3.4-5.0) 10/16/21 04:41 Globulin 2.7 gm/dl (2.5-4.0) 10/16/21 04:41 Albumin/Globulin Ratio 1.5 (0.9-2) 10/16/21 04:41 Triglycerides 93 mg/dl (0-150) 10/16/21 04:41 Cholesterol 197 mg/dl (0-200) 10/16/21 04:41 LDL Cholesterol, Calc 136 mg/dl 10/16/21 04:41 VLDL Cholesterol, Calc 19 mg/dl (0-30) 10/16/21 04:41 HDL Cholesterol 42 mg/dl 10/16/21 04:41 Cholesterol/HDL Ratio 4.7 (0-5) 10/16/21 04:41 Lipase 23 U/L (11-82) 10/15/21 13:42 TSH 0.744 uIu/ml (0.300-4.500) 10/15/21 13:42 Urine Color Yellow 10/15/21 13:42 Urine Appearance Clear (Clear) 10/15/21 13:42 Urine pH 8.5 (4.5-7.5) H 10/15/21 13:42 Ur Specific Trout 1.004 (1.000-1.030) 10/15/21 13:42 Urine Protein Negative (Negative) 10/15/21 13:42 Urine Glucose (UA) Negative (Negative) 10/15/21 13:42 Urine Ketones Negative (Negative) 10/15/21 13:42 Urine Blood Negative (Negative) 10/15/21 13:42 Urine Nitrite Negative (Negative) 10/15/21 13:42 Urine Bilirubin Negative (Negative) 10/15/21 13:42 Urine Urobilinogen Negative (Negative) 10/15/21 13:42 Ur Leukocyte Esterase Negative (Negative) 10/15/21 13:42 SARS-CoV-2, RNA, NAAT NEGATIVE (NEGATIVE) 10/15/21 13:42 Impressions Chest X-Ray 10/15/21 13:18 XR chest 1V portable CLINICAL HISTORY: Chest Pain. COMPARISON STUDY: 10/13/2021 TECHNIQUE: 1 view of the chest FINDINGS: Single frontal view of the chest demonstrates the heart size to again be enlarged status post previous cardiothoracic surgery. Wires are present from previous pacer. The lungs are clear of alveolar opacities. There is no evidence for pleural effusion. There is no evidence for vascular congestion. There is no acute osseous pathology. IMPRESSION: 1. No acute cardiopulmonary disease. ACT 112: Negative or not required by law. Electronically signed by: Remigio Duque M.D. 10/15/2021 3:09 PM Hospital Course (1) Chest pain: (2) History of tetralogy of Fallot repair: (3) History of placement of internal cardiac defibrillator: (4) Status post aortic aneurysm repair: (5) Dyslipidemia: (6) History of ventricular tachycardia: 56-year-old man with a history of aortic root repair and repair of Tetralogy of Fallot as well as history of V. tach presents with 6 days of chest tightness. He was seen in the ER 2 days prior to this admission and lab test as well as CT chest at that time was unrevealing. He was discharged to follow-up with cardiology however his symptoms have returned. Blood work revealed no leukocytosis or concerning anemia and there was a normal platelet count. There is no coagulopathy. There is no significant electrolyte abnormality or renal failure. There is no worrisome liver enzyme elevation. EKG revealed normal sinus rhythm with some nonspecific interventricular conduction block. There is no ST elevation. Cardiac enzymes were trended overnight and not consistent with cardiac injury. There was no evidence of pancreatitis. Chest x-ray did not reveal nystatin awaiting pneumothorax or pneumonia. Urinalysis did not show any infection. Covid testing was negative. Anxiety was noted on exam. He was admitted to the hospitalist service and cardiology was consulted. Blood cultures were drawn and negative at time of discharge. An echocardiogram was ordered to assess aortic root and for valvular insufficiency. The echocardiogram revealed no acute findings with excellent long-term surgical repair. There were no additional acute findings on EKG or CT scan of the chest. Telemetry revealed no acute findings or arrhythmias overnight and he was clinically doing well on morning of discharge. Per cardiology there was recommendation to perform an event monitor for 2 weeks post hospital discharge given past history of structural heart disease and prior ventricular tachycardia with recent symptoms of tachypalpitations. Furthermore there is a suggestion for nocturnal oximetry/sleep evaluation post discharge. Patient was seen at time of discharge and doing well. He was hemodynamically stable and a symptomatic. He was discharged in stable condition with close primary care follow-up recommended and follow-up with cardiology as instructed. Total Time Total Time Spent Total Time Spent (In Minutes): 60 Discharge Plan Discharge Items Patient Disposition: Home - Self-Care Reason For Visit: CHEST PAIN Discharge Diagnosis: Palpitation s/p aortic aneurysm repair h/o tetralogy of Fallot repair anxiety Condition on Discharge: Good Activity: Resume your previous activity Non-emergency contact: Primary Care Provider and Glove Cuffer Call non-emergency contact if: you have any medication questions Follow-up/Referrals: Sofie Burgess MD [Primary Care Provider] - (Date & Time 10/20/2021 11:20 AM Provider Sofie Burgess MD Department General Internal Medicine [facility] ) Diet: Regular Addtl Attending Provider Instructions: Please take all medications as instructed on discharge list below. It is recommended that you cloth picker your ZIO patch (event monitor) from [facility] location and wear this for two weeks. This is for further investigation into your heart palpitations. Please follow with your primary care provider within one week of discharge from the hospital and follow-up with Cardiology as instructed. This will be important to review the reading from your event monitor and review how your symptoms are doing since returning home. It was also recommended that you start a trial of low dose sertraline (Zoloft) to help with anxiety, and use lorazepam as needed for severe breakthrough. Please discuss starting sertraline with your primary care physician prior to s tarting as this medication may need to be increased and it will be important for them to have a clear baseline from where you are starting. It was a pleasure taking care of you! Please call if you have any questions or problems. You can reach a [facility] hospitalist on duty at [facility] 24 hours a day by calling [phone]. Take care of yourself. Kait Burciaga, DO [facility] Hospitalist Pending Studies at Discharge: No Stand-Alone Forms: My [facility] Medications and DC Order Prescriptions: New lorazepam 0.5 mg tablet 0.5 mg PO Q12H PRN (Reason: anxiety) Qty: 10 RF: 0 Continued multivitamin Tablet 1 tab PO DAILY RF: 0 metoprolol succinate [Toprol XL] 50 mg tablet extended release 24 hr 50 mg PO DAILY RF: 0 aspirin 81 mg Tablet,Delayed Release (Dr/Ec) 81 mg PO DAILY RF: 0 lisinopril 5 mg tablet 5 mg PO DAILY RF: 0 Discharge Orders: Discharge Order (Routine); Ordered 10/16/21 Ordered By: Kait Burciaga Admission Data Admit Date/Time: 10/15/21 15:33 Attending Provider: Kait Burciaga Admit Provider: Gregorio Severino Primary Care Provider: Sofie Burgess Other Providers: Dinesh Morris ; Gregorio Severino ; Mary Zarate ; Lorie Ga ; Carolina De Guzman ; David Mckeon Other Interventions: Discharge Summary Assessment (RN) Last Done: 10/16/21 14:04
[2021-10-16 14:56] LABS: Estimated Average Glucose 117 mg/dl; Hemoglobin A1C 5.7 % (4.5-5.6)
== END 2021-10-16 14:34 | disposition home or self-care (01) ==
LOC: 2S 12:51 → ED 12:51 → SUATTDRO 15:33 → 2S 16:27

== ENCOUNTER 2024-06-26 02:28 | Observation (INO) ==
--- NOTE | 2024-06-26 02:43 | Emergency Department Note ---
History of Present Illness General Chief complaint: Arrhythmia/Palpitations Stated complaint: PALPITATIONS, CLAMMY FEELING Time Seen by Provider: 06/26/24 02:33 History of Present Illness Maximum Pain Intensity: 1 This 58-year-old gentleman with a prior cardiac history that follows with [facility] cardiology presents the ER waking up with heart racing and skipping feeling clammy. He has had V. tach in the past. His ICD was removed several years ago and he did not want it replaced. Patient states he is feeling somewhat better now but just feels clammy and has an occasional cough with chest discomfort. Patient denies fever, chills, dyspnea, exertional chest pain, leg pain or swelling. No tobacco use. Patient states within the past 6 months has had a Holter monitor and showed PVCs and short runs of V. tach. Home Medications Medication Instructions Recorded Confirmed Type metoprolol succinate 50 mg 50 mg PO QAM 12/24/18 03/30/23 History tablet,extended release 24 hr (Toprol XL) multivitamin 1 tab PO QAM 12/24/18 03/30/23 History aspirin 81 mg tablet,delayed 81 mg PO QAM 05/07/21 03/30/23 History release omeprazole 20 mg tablet,delayed 20 mg PO QAM 11/02/21 03/30/23 History release cetirizine 10 mg tablet 10 mg PO QAM PRN Allergy Symptoms 10/12/22 03/30/23 History losartan 50 mg tablet 50 mg PO QAM 10/12/22 03/30/23 History famotidine 10 mg tablet 10 mg PO DAILY PRN Heartburn 03/23/23 03/30/23 History Allergies Allergy/AdvReac Type Severity Reaction Status Date / Time GENERAL ANESTHESIA AdvReac Severe COMBATIVE Uncoded 03/30/23 09:23 Past Med/Surg History Problem List (Updated 03/23/23 @ 12:09 by Carmen Mcdaniel RN) Chest discomfort (Acute) Palpitations (Acute) Encounter for pre-operative examination Rotator cuff tear, right Biceps tendonitis Hypertensive urgency DVT prophylaxis Status post rotator cuff repair (Chronic) Status post aortic valve repair (Chronic) 2007 S/P tendon repair (Chronic) Left/Rt biceps H/O repair of right rotator cuff (Chronic) x 2 Medical History (Updated 06/26/24 @ 03:45 by Mayelin Lazo PA-C) History of esophageal dilatation Abdominal pain reason for procedure Abdominal bloating reason for procedure Gastroparesis History of COVID-19 July 06, 2022 (tested positive, home test) -> flu like symptoms; fever, aches, fatigue. since having covid-19 patient reports abdominal pain and cramping/bloating & severe heartburn at times. denies any bleeding, no sob or chest pain at this time. Suspected sleep apnea per [facility] sleep disorder clinic, home sleep apnea study last year -- no machine. History of ventricular tachycardia s/p ICD removal (leads still in place) by patient request History of pacemaker s/p ICD removal. Placed in 2001 for syncope, removed 2008 by pt request History of blood transfusion age 6 y/o Anxiety Elevated cholesterol "BORDERLINE" Hypertension History of placement of internal cardiac defibrillator S/P removal, per patient request for inappropriate firing Surgical History (Updated 03/23/23 @ 12:09 by Carmen Mcdaniel RN) History of esophagogastroduodenoscopy (EGD) History of cholecystectomy History of implantable cardiac defibrillator (ICD) s/p removal 2008. Placed in 2001 D/T SYNCOPE per patient request for inappropriate firing History of anesthesia reaction BECOME COMBATIVE>WITH GENERAL ANESTHESIA H/O inguinal hernia repair H/O hand surgery FINGER TENDON REPAIR History of colonoscopy History of tooth extraction History of cardiac cath MULTIPE History of open heart surgery PATCH IMPLANTED TO CORRECT VSD + RESECTED TISSUE PULMONIC ARTERY *AGE 6 [facility] Status post aortic aneurysm repair s/p aortic valve repair and aortic root replacement with ascending aortic and hemiarch replacement 2007 ([facility]) History of tetralogy of Fallot repair AGE 6 Family History Father Sudden , Onset Age: 60 Cardiomyopathy Mother Diabetes Aunt Sudden , Onset Age: 45 Other No family history of adverse response to anesthesia Social History Smoking Status: Never smoker Second Hand Exposure: No; Do You Dip or Chew Tobacco: No; Hx Alcohol Use: Yes Alcohol type: beer and wine Hx Substance Use: No Preferred Language: Upper Sorbian Communication Ability: Effective Visual Impairment: No Limitations Size Maker Required: No Beliefs That Will Affect Care: None marital status: Current Living Situation: Spouse How many Children do You have: 2 Feels Safe at Home: Yes Assistive Devices: Glasses Review of Systems A total of 10 systems reviewed and were otherwise negative Physical Exam Vital Signs Vital Signs - 24 hr 06/26/24 02:31 06/26/24 02:48 06/26/24 02:48 Temperature 36.6 C Temperature Source Oral Pulse Rate 65 Pulse Rate [Right Finger] 63 Pulse Rhythm [Right Finger] Irregular Pulse Strength [Right Finger] Normal Respiratory Rate 14 Respiratory Effort / Characteristics Non-Labored Respiratory Depth Normal Respiratory Pattern Regular Blood Pressure 167/87 H Blood Pressure [Right Arm] 132/73 Blood Pressure Mean 113 Blood Pressure Mean [Right Arm] 92 Blood Pressure Position [Right Arm] Lying Pulse Oximetry 95 98 Oxygen Delivery Method Room Air Room Air Room Air Sepsis Recent Fever Within 48 Hours No Sepsis New/Unexplained Change in Mental Status No Sepsis Action Taken by Nursing No Action Required 06/26/24 02:54 Temperature Temperature Source Pulse Rate 63 Pulse Rate [Right Finger] Pulse Rhythm [Right Finger] Pulse Strength [Right Finger] Respiratory Rate Respiratory Effort / Characteristics Respiratory Depth Respiratory Pattern Blood Pressure Blood Pressure [Right Arm] Blood Pressure Mean Blood Pressure Mean [Right Arm] Blood Pressure Position [Right Arm] Pulse Oximetry Oxygen Delivery Method Sepsis Recent Fever Within 48 Hours Sepsis New/Unexplained Change in Mental Status Sepsis Action Taken by Nursing VITALS: Vitals are noted on the nurse's note and reviewed by myself. Vital signs stable. GENERAL: Pleasant patient, in no acute distress, nondiaphoretic, well-developed well-nourished. SKIN: Capillary reflex less than 2 seconds. HEENT: Normocephalic. PERRLA. EOMI. Nares patent. Mucous membranes moist. Neck is supple without nuchal rigidity. HEART: Regular rate and rhythm LUNGS: Clear to auscultation bilaterally without wheezes, rales or rhonchi. No retractions or accessory muscle use. ABDOMEN: Positive bowel sounds x 4. Normal tympanic percussion. Soft, nontender, without masses or organomegaly. Sams sign negative. No guarding or rebound tenderness. no CVA tenderness MUSCULOSKELETAL: No gross musculoskeletal defects. NEURO: Patient was alert and oriented to person place and time. No focal neurological deficits. Medical Decision Making Medical Records Attestation: I reviewed the patient's medical records. Home Medications Current Medication List: was personally reviewed by me Laboratory Data Attestation: I reviewed the patient's lab results. 06/26/24 02:45 06/26/24 02:45 Lab Results 06/26/24 Range/Units 02:45 WBC 4.50 L (4.8-10.8) K/ul RBC 4.67 L (4.70-6.10) M/uL Hgb 14.3 (14.0-18.0) g/dl Hct 41.2 L (42.0-52.0) % MCV 88.2 (80.0-100.0) fL MCH 30.6 (25.0-34.0) pg MCHC 34.7 (32.0-36.0) g/dL RDW Std Deviation 38.4 (36.4-46.3) fL RDW Coeff of Ama 11.9 (11.5-14.5) % Plt Count 144 (130-400) K/uL MPV 9.2 L (9.4-12.4) fL Immature Gran % (Auto) 0.2 % Neut % (Auto) 39.2 % Lymph % (Auto) 46.9 % [place] % (Auto) 10.2 % Eos % (Auto) 3.1 % Baso % (Auto) 0.4 % Neut # (Auto) 1.76 (1.40-6.50) K/uL Lymph # (Auto) 2.11 (1.20-3.40) K/uL [place] # (Auto) 0.46 (0.11-0.59) K/uL Eos # (Auto) 0.14 (0.00-0.50) K/uL Baso # (Auto) 0.02 (0.00-0.20) K/uL Immature Gran # (Auto) 0.01 (0.01-0.20) K/uL Sodium 140 (136-145) mmol/L Potassium 4.1 (3.5-5.1) mmol/L Chloride 108 H (98-107) mmol/L Carbon Dioxide 25 (21-32) mmol/L Anion Gap 7 (3-11) BUN 21 (6-23) mg/dl Creatinine 0.96 (0.6-1.4) mg/dl Est Cr Clr Drug Dosing 114.9 ml/min eGFR 92.19 BUN/Creatinine Ratio 21.9 H (10-20) Glucose 123 H (70-99(Fasting)) mg/dl Calcium 8.9 (8.6-10.3) mg/dl Magnesium 1.9 (1.7-2.4) mg/dl Total Bilirubin 0.3 (0.2-1.0) mg/dl AST 22 (13-39) U/L ALT 25 (7-52) U/L Alkaline Phosphatase 44 (34-104) U/L Troponin I High Sens 7.5 (0-20) pg/ml Total Protein 6.2 (6.0-8.3) gm/dl Albumin 4.2 (3.4-5.0) gm/dl Globulin 2.0 L (2.5-4.0) gm/dl Albumin/Globulin Ratio 2.1 H (0.9-2) TSH 2.958 (0.300-4.500) uIu/ml Imaging Data Attestation: I personally reviewed and interpreted this imaging study as follows: Radiologist's Impression: Chest X-Ray 06/26/24 02:57 EXAM: XR chest 1V portable CLINICAL HISTORY: CHEST PAIN [facility] TECHNIQUE: X-ray images of the chest were obtained in the AP portable projection. COMPARISON: 09/17/2022. FINDINGS: Pulmonary Parenchyma: Bilateral lower lobar atelectatic changes. No evidence of consolidation, collapse, or focal opacities. No pulmonary nodules identified. No evidence of pleural effusion or pleural thickening. Heart and Mediastinum: Increased cardiac size. Bilateral prominent hilar vascular markings may be related to congestion. Bony Thorax: Bony thorax appears intact without fractures or deformities. IMPRESSION: 1. Bilateral lower lobar atelectatic changes. 2. Increased cardiac size. 3. Bilateral prominent hilar vascular markings, may be related to congestion. 4. No acute cardiopulmonary abnormalities identified. 5. Unchanged study. Electronically signed by Jalil Rodriges 06-26-2024 03:45 AM [facility] Narrative Prior records/ancillary studies reviewed. Triage Nursing notes reviewed. Additional history obtained from family. The patient's history was concerning for palpitations. Differential diagnosis: Etiologies such as premature contractions, electrolyte abnormality, cardiac dysrhythmia, thyroid dysfunction, pulmonary embolism, infection, gastrointestinal, as well as others were entertained. Physical examination: Benign as above. ER treatment provided: Patient was observed On reassessment the patient felt better. Diagnostic interpretation by me: An order was placed for continuous cardiac monitoring. The monitor shows a rate of 60-100 with a sinus rhythm per my interpretation. The electrocardiogram was ordered for palpitaions ECG: Normal sinus, right bundle, no acute ST-T wave changes, rate of 62. Impression right bundle branch block normal sinus rhythm unchanged and prior independently interpreted by myself The labs Independently Interpreted by myself revealed negative troponin, stable H&H Imaging studies: Chest x-ray with no acute consolidation, pneumothorax or free air per my independent interpretation Consultation: A consultation was placed with the hospitalist. The case was discussed and diagnostics were reviewed. The patient was evaluated in the ER for further treatment. This appears to be consistent with racing heart with concerns for runs of V. tach. Medicine was consulted and the case discussed. Patient will be admitted to the medical service.. By the evaluation outlined above emergent etiologies such as electrolyte abnormality, thyroid dysfunction, pulmonary embolism, infection, as well as others were deemed relatively unlikely. The pt informed about the findings as listed above. All questions were answered and pleased with the treatment. The chart was completed utilizing [employer] Speech voice recognition software. Grammatical errors, random word insertions, pronoun errors, and incomplete sentences are an occassional consequence of this system due to software limitations, ambient noise, and hardware issues. Any formal questions or concerns about the content, text, or information contained within the body of this dictation should be directly addressed to the physician recreation assistant for clarification. Impression & Plan Palpitations, Chest discomfort Discharge Plan Visit Data Chief Complaint: Arrhythmia/Palpitations Stated Complaint: PALPITATIONS, CLAMMY FEELING ED Provider: Priya Estevez ED Midlevel Provider: Mayelin Lazo Discharge Problem: Palpitations, Chest discomfort Patient Disposition: Being Evaluated by Hospitalist Condition: Good Forms Stand Alone Forms: My [facility] Prescriptions Prescriptions: No Action multivitamin Tablet 1 tab PO QAM metoprolol succinate [Toprol XL] 50 mg tablet extended release 24 hr 50 mg PO QAM aspirin 81 mg Tablet,Delayed Release (Dr/Ec) 81 mg PO QAM omeprazole 20 mg Tablet,Delayed Release (Dr/Ec) 20 mg PO QAM famotidine 10 mg Tablet 10 mg PO DAILY PRN (Reason: Heartburn) losartan 50 mg Tablet 50 mg PO QAM cetirizine 10 mg Tablet 10 mg PO QAM PRN (Reason: Allergy Symptoms) Referrals Referrals: Sofie Burgess MD [Primary Care Provider] -
[2024-06-26 03:23] LABS: Basophils # (auto) 0.02 K/uL (0.00-0.20); Basophils % (auto) 0.4 %; Eosinophils # (auto) 0.14 K/uL (0.00-0.50); Eosinophils % (auto) 3.1 %; Hematocrit (blood only) 41.2 % (42.0-52.0); Hemoglobin 14.3 g/dl (14.0-18.0); Immature Granulocytes # (auto) 0.01 K/uL (0.01-0.20); Immature Granulocytes % (auto) 0.2 %; Lymphocytes # (auto) 2.11 K/uL (1.20-3.40); Lymphocytes % (auto) 46.9 %; Mean Corpuscular Hemoglobin 30.6 pg (25.0-34.0); Mean Corpuscular Hgb Conc 34.7 g/dL (32.0-36.0); Mean Corpuscular Volume 88.2 fL (80.0-100.0); Mean Platelet Volume 9.2 fL (9.4-12.4); Monocytes # (auto) 0.46 K/uL (0.11-0.59); Monocytes % (auto) 10.2 %; Neutrophils # (auto) 1.76 K/uL (1.40-6.50); Neutrophils % (auto) 39.2 %; Platelet Count 144 K/uL (130-400); RDW Coefficient of Variation 11.9 % (11.5-14.5); RDW Standard Deviation 38.4 fL (36.4-46.3); Red Blood Count 4.67 M/uL (4.70-6.10)
[2024-06-26 03:33] LABS: Albumin Level 4.2 gm/dl (3.4-5.0); Bilirubin,Total 0.3 mg/dl (0.2-1.0); Calcium 8.9 mg/dl (8.6-10.3); Magnesium 1.9 mg/dl (1.7-2.4); Potassium 4.1 mmol/L (3.5-5.1)
[2024-06-26 03:39] LABS: Albumin Globulin Ratio 2.1 (0.9-2); BUN Creatinine Ratio 21.9 (10-20); Creatinine Clr Calc Pharmacy 114.9 ml/min; Total Protein 6.2 gm/dl (6.0-8.3)
[2024-06-26 03:40] LABS: Troponin I High Sensitivity 7.5 pg/ml (0-20)
--- NOTE | 2024-06-26 03:45 | XRay Report ---
EXAM: XR chest 1V portable CLINICAL HISTORY: CHEST PAIN [facility] TECHNIQUE: X-ray images of the chest were obtained in the AP portable projection. COMPARISON: 09/17/2022. FINDINGS: Pulmonary Parenchyma: Bilateral lower lobar atelectatic changes. No evidence of consolidation, collapse, or focal opacities. No pulmonary nodules identified. No evidence of pleural effusion or pleural thickening. Heart and Mediastinum: Increased cardiac size. Bilateral prominent hilar vascular markings may be related to congestion. Bony Thorax: Bony thorax appears intact without fractures or deformities. IMPRESSION: 1. Bilateral lower lobar atelectatic changes. 2. Increased cardiac size. 3. Bilateral prominent hilar vascular markings, may be related to congestion. 4. No acute cardiopulmonary abnormalities identified. 5. Unchanged study. Electronically signed by Jalil Rodriges 06-26-2024 03:45 AM
[2024-06-26 03:49] LABS: Thyroid Stimulating Hormone 2.958 uIu/ml (0.300-4.500)
--- NOTE | 2024-06-26 04:01 | History & Physical Report ---
Date of Service June 26, 2024 Assessment & Plan (1) Palpitations: Plan: Possible NSVT history of VT status post ICD (2001) status post explantation (2008, as per patient request) valvular heart disease (mild TR/MT) tetralogy of Fallot s/p repair/aortic aneurysm repair hyperlipidemia on statin Rx Hyperglycemia, likely prediabetes, hemoglobin A1c of 5.7 from 2 years ago OBS PCU Continue home beta-deya Rx Cardiology consult Re: Palpitations, history of VT Update hemoglobin A1c DVT prophylaxis. SCDs Full code History of Present Illness Chief Complaint: Palpitations Primary Care Provider: Sofie Burgess MD History obtained from patient, family, and records. Medical history significant for history of VT status post ICD (2001) status post explantation (2008, as per patient request), valvular heart disease (mild TR/MT), tetralogy of Fallot s/p repair, aortic aneurysm repair, hyperlipidemia. Last confinement October 2021 for palpitations. [facility] EPS specialist recommended ICD reimplantation with note of NSVT on outpatient Zio patch monitor. Patient woke up early a.m. with palpitations, heart racing, irregular heartbeat sensation every third heartbeat. Patient felt sweaty/diaphoretic. No actual chest pain or SOB. Compliant with home medications. No unusual stress at home. Caffeine intake a little more than usual. No recent episode. Medical History as above Surgical History : ICD implantation, ICD removal, cholecystectomy, aortic aneurysm repair, tetralogy of Fallot repair, shoulder surgery, biceps tendon surgery groin hernia repair Family History : DM, heart disease Personal/Social history : Non-smoker, occasional EtOH intake, [employer] employee Allergies Allergy/AdvReac Type Severity Reaction Status Date / Time GENERAL ANESTHESIA AdvReac Severe COMBATIVE Uncoded 03/30/23 09:23 Home Medications Medication Instructions Recorded Confirmed Type metoprolol succinate 50 mg 50 mg PO QAM 12/24/18 06/26/24 History tablet,extended release 24 hr (Toprol XL) multivitamin 1 tab PO QAM 12/24/18 06/26/24 History aspirin 81 mg tablet,delayed 81 mg PO QAM 05/07/21 06/26/24 History release lisinopril 10 mg tablet 10 mg PO QAM 06/26/24 06/26/24 History metoprolol succinate 25 mg 25 mg PO QPM 06/26/24 06/26/24 History tablet,extended release 24 hr pravastatin 40 mg tablet 40 mg PO QAM 06/26/24 06/26/24 History Past Med/Surg History Problem List (Updated 03/23/23 @ 12:09 by Carmen Mcdaniel, RN) Chest discomfort (Acute) Palpitations (Acute) Encounter for pre-operative examination Rotator cuff tear, right Biceps tendonitis Hypertensive urgency DVT prophylaxis Status post rotator cuff repair (Chronic) Status post aortic valve repair (Chronic) 2007 S/P tendon repair (Chronic) Left/Rt biceps H/O repair of right rotator cuff (Chronic) x 2 Medical History (Updated 06/26/24 @ 03:45 by Mayelin Lazo PA-C) History of esophageal dilatation Abdominal pain reason for procedure Abdominal bloating reason for procedure Gastroparesis History of COVID-19 July 06, 2022 (tested positive, home test) -> flu like symptoms; fever, aches, fatigue. since having covid-19 patient reports abdominal pain and cramping/bloating & severe heartburn at times. denies any bleeding, no sob or chest pain at this time. Suspected sleep apnea per [facility] sleep disorder clinic, home sleep apnea study last year -- no machine. History of ventricular tachycardia s/p ICD removal (leads still in place) by patient request History of pacemaker s/p ICD removal. Placed in 2001 for syncope, removed 2008 by pt request History of blood transfusion age 6 y/o Anxiety Elevated cholesterol "BORDERLINE" Hypertension History of placement of internal cardiac defibrillator S/P removal, per patient request for inappropriate firing Surgical History (Updated 03/23/23 @ 12:09 by Carmen Mcdaniel RN) History of esophagogastroduodenoscopy (EGD) History of cholecystectomy History of implantable cardiac defibrillator (ICD) s/p removal 2008. Placed in 2001 D/T SYNCOPE per patient request for inappropriate firing History of anesthesia reaction BECOME COMBATIVE>WITH GENERAL ANESTHESIA H/O inguinal hernia repair H/O hand surgery FINGER TENDON REPAIR History of colonoscopy History of tooth extraction History of cardiac cath MULTIPE History of open heart surgery PATCH IMPLANTED TO CORRECT VSD + RESECTED TISSUE PULMONIC ARTERY *AGE 6 [facility] Status post aortic aneurysm repair s/p aortic valve repair and aortic root replacement with ascending aortic and hemiarch replacement 2007 ([facility]) History of tetralogy of Fallot repair AGE 6 Family History Father Sudden , Onset Age: 60 Cardiomyopathy Mother Diabetes Aunt Sudden , Onset Age: 45 Other No family history of adverse response to anesthesia Social History Smoking Status: Never smoker Second Hand Exposure: No; Do You Dip or Chew Tobacco: No; Tobacco Cessation Education Requested by Patient: No Hx Alcohol Use: Yes Alcohol type: beer and wine Hx Substance Use: No Preferred Language: Swiss Communication Ability: Effective Visual Impairment: No Limitations Cras Required: No Beliefs That Will Affect Care: None marital status: Current Living Situation: Spouse How many Children do You have: 2 Other Information That Helps Us Care for You: No Feels Safe at Home: Yes Assistive Devices: Glasses Review of Systems Review of Systems: As per HPI, all other systems reviewed and negative Physical Exam Physical Exam: GENERAL: Comfortable, obese, pleasant, no respiratory distress SKIN: Normal color, warm HEENT: [place] palpebral conjunctivae, no ptosis, moist buccal mucosa NECK : Supple, no tenderness CHEST : CTA, no tenderness HEART : RRR, no obvious murmurs ABDOMEN: Some distention, nontender EXTREMITIES : No LE swelling/tenderness, no other conspicuous deformities noted NEUROLOGIC : Coherent, no facial asymmetry, no other gross focality Results & Data Results & Data Vital Signs (Past 12 Hours) Vital Signs Temp Pulse Pulse Resp BP BP Pulse Ox 06/26/24 02:54 63 06/26/24 02:48 63 14 132/73 98 06/26/24 02:48 06/26/24 02:31 36.6 C 65 167/87 H 95 O2 Del Method 06/26/24 02:54 06/26/24 02:48 Room Air 06/26/24 02:48 Room Air 06/26/24 02:31 Room Air Laboratory Results Laboratory Results WBC 4.50 K/ul (4.8-10.8) L 06/26/24 02:45 RBC 4.67 M/uL (4.70-6.10) L 06/26/24 02:45 Hgb 14.3 g/dl (14.0-18.0) 06/26/24 02:45 Hct 41.2 % (42.0-52.0) L 06/26/24 02:45 MCV 88.2 fL (80.0-100.0) 06/26/24 02:45 MCH 30.6 pg (25.0-34.0) 06/26/24 02:45 MCHC 34.7 g/dL (32.0-36.0) 06/26/24 02:45 RDW Std Deviation 38.4 fL (36.4-46.3) 06/26/24 02:45 RDW Coeff of Ama 11.9 % (11.5-14.5) 06/26/24 02:45 Plt Count 144 K/uL (130-400) 06/26/24 02:45 MPV 9.2 fL (9.4-12.4) L 06/26/24 02:45 Immature Gran % (Auto) 0.2 % 06/26/24 02:45 Neut % (Auto) 39.2 % 06/26/24 02:45 Lymph % (Auto) 46.9 % 06/26/24 02:45 [place] % (Auto) 10.2 % 06/26/24 02:45 Eos % (Auto) 3.1 % 06/26/24 02:45 Baso % (Auto) 0.4 % 06/26/24 02:45 Neut # (Auto) 1.76 K/uL (1.40-6.50) 06/26/24 02:45 Lymph # (Auto) 2.11 K/uL (1.20-3.40) 06/26/24 02:45 [place] # (Auto) 0.46 K/uL (0.11-0.59) 06/26/24 02:45 Eos # (Auto) 0.14 K/uL (0.00-0.50) 06/26/24 02:45 Baso # (Auto) 0.02 K/uL (0.00-0.20) 06/26/24 02:45 Immature Gran # (Auto) 0.01 K/uL (0.01-0.20) 06/26/24 02:45 Sodium 140 mmol/L (136-145) 06/26/24 02:45 Potassium 4.1 mmol/L (3.5-5.1) 06/26/24 02:45 Chloride 108 mmol/L (98-107) H 06/26/24 02:45 Carbon Dioxide 25 mmol/L (21-32) 06/26/24 02:45 Anion Gap 7 (3-11) 06/26/24 02:45 BUN 21 mg/dl (6-23) 06/26/24 02:45 Creatinine 0.96 mg/dl (0.6-1.4) 06/26/24 02:45 Est Cr Clr Drug Dosing 114.9 ml/min 06/26/24 02:45 eGFR 92.19 06/26/24 02:45 BUN/Creatinine Ratio 21.9 (10-20) H 06/26/24 02:45 Glucose 123 mg/dl (70-99(Fasting)) H 06/26/24 02:45 Calcium 8.9 mg/dl (8.6-10.3) 06/26/24 02:45 Magnesium 1.9 mg/dl (1.7-2.4) 06/26/24 02:45 Total Bilirubin 0.3 mg/dl (0.2-1.0) 06/26/24 02:45 AST 22 U/L (13-39) 06/26/24 02:45 ALT 25 U/L (7-52) 06/26/24 02:45 Alkaline Phosphatase 44 U/L (34-104) 06/26/24 02:45 Troponin I High Sens 7.5 pg/ml (0-20) 06/26/24 02:45 Total Protein 6.2 gm/dl (6.0-8.3) 06/26/24 02:45 Albumin 4.2 gm/dl (3.4-5.0) 06/26/24 02:45 Globulin 2.0 gm/dl (2.5-4.0) L 06/26/24 02:45 Albumin/Globulin Ratio 2.1 (0.9-2) H 06/26/24 02:45 TSH 2.958 uIu/ml (0.300-4.500) 06/26/24 02:45 Impressions Chest X-Ray 06/26/24 02:57 EXAM: XR chest 1V portable CLINICAL HISTORY: CHEST PAIN [facility] TECHNIQUE: X-ray images of the chest were obtained in the AP portable projection. COMPARISON: 09/17/2022. FINDINGS: Pulmonary Parenchyma: Bilateral lower lobar atelectatic changes. No evidence of consolidation, collapse, or focal opacities. No pulmonary nodules identified. No evidence of pleural effusion or pleural thickening. Heart and Mediastinum: Increased cardiac size. Bilateral prominent hilar vascular markings may be related to congestion. Bony Thorax: Bony thorax appears intact without fractures or deformities. IMPRESSION: 1. Bilateral lower lobar atelectatic changes. 2. Increased cardiac size. 3. Bilateral prominent hilar vascular markings, may be related to congestion. 4. No acute cardiopulmonary abnormalities identified. 5. Unchanged study. Electronically signed by Jalil Rodriges 06-26-2024 03:45 AM Diagnostic Findings EKG as per my interpretation :Rate 60, NSR, normal axis, LVH, incomplete RBBB, no ischemia
[2024-06-26] MEDS ORDERED: NITROGLYCERIN SL 0.4 MG/TAB TAB SL PRN (04:32)
[2024-06-26] MEDS ORDERED: traMADol HCL 50 MG TABLET PO PRN (04:32)
[2024-06-26] MEDS ORDERED: PROMETHAZINE 6.25 MG/50.25 ML BAG IV PRN (04:32)
[2024-06-26] MEDS: MAGNESIUM SULFATE / D5W 1 GM/100 ML BAG IV STA (04:42)
[2024-06-26 07:01] LABS: Estimated Average Glucose 126 mg/dl
[2024-06-26] MEDS: MULTIVITAMIN TAB PO SCH (08:25)
[2024-06-26] MEDS: lisinopril 10 MG TAB PO SCH (08:25)
[2024-06-26] MEDS: METOPROLOL SUCC 50MG EXT REL TAB PO SCH (08:25)
[2024-06-26] MEDS: ASPIRIN 81 MG ECTAB PO SCH (08:25)
--- OUTSIDE RECORDS SUMMARY | 2024-06-26 09:05 | External Medical Summary | Summary of Care ---
Author Name Unknown Organization [facility] Address [address] [place] [address] Phone [phone] Care Team Providers Care Sales Service Assistant Name Role Phone Sofie Burgess MD Primary Care Provider + Reason for Visit * Reason Comments eRx-Medication Refill Encounter Details Date Type Department Care Team (Late st Contact Info) Description 03/18/2024 Refill Cardiology, [facility] [address] [facility] [place] [address] Reg Silva O, DO [address] [place] [address] H/O ventricular tachycardia Allergies Active Allergy Reactions Criticality Noted Date Comments Atorvastatin Muscle pain 03/13/2014 Other Allergy (See Comments) Medium 12/24/2018 General Anesthesia Other reaction(s): COMBATIVE documented as of this encounter (statuses as of 03/21/2024) Medications Medication Sig Dispensed Refills Start Date End Date Status Aspirin 81 MG Tablet Once daily 12/18/2014 Active ibuprofen (EQ IBUPROFEN) 200 MG TabletIndication s:Acute left-sided low back pain without sciatica,Spasm of muscle Take 2 Tabs by mouth every 6 hours as needed for Pain. 30 Tab 02/16/2017 Active acetaminophen (TYLENOL) 500 MG TabletIndication s:Acute right-sided low back pain with right-sided sciatica Take 2 Tabs by mouth every 8 hours as needed for Pain or Fever. 100 Tab 02/28/2018 Active Multiple Vitamin (MULTI-DAY) Tablet Take 1 Tab by mouth daily. Active Melatonin ER 1 MG Oral Tablet Extended ReleaseIndicatio ns:Other insomnia Taking melatonin unsure dose--chg to ER form and inc upto 10 mg if needed 1 Tablet 12/04/2021 Active Mylanta Coat & Cool 1200-270-80 MG/10ML Oral Suspension (Abrahan Carb-Mag Hydrox-Simeth) Take by mouth . Activ e Fluticasone Propionate HFA 110 MCG/ACT Inhalation Aerosol (Flovent HFA) Inhale 2 Puffs by mouth in the morning and 2 Puffs before bedtime. 12 g 5 10/04/2022 Active ProAir HFA 108 (90 Base) MCG/ACT Inhalation Aerosol SolutionIndicati ons:Wheezing Inhale 2 Puffs by mouth every 4 hours as needed for Wheezing. 18 g 11/15/2022 Active Albuterol Sulfate HFA 108 (90 Base) MCG/ACT Inhalation Aerosol SolutionIndicati ons:Acute cough,Bronchitis , complicated,Whee zing,Shortness of breath Inhale 2 Puffs by mouth every 4 hours as needed for Wheezing. 18 g 11/14/2023 Active Cetirizine HCl 10 MG Oral Capsule Take 1 Capsule by mouth in the morning. Active Omeprazole 40 MG Oral Capsule Delayed Release (PriLOSEC) TAKE 1 CAPSULE BY MOUTH EVERY MORNING 1 HOURS BEFORE FIRST MEAL OF THE DAY. 90 Capsule 3 12/13/2023 Active Additional Information Patient not taking.Reported on 02/10/2024 Metoprolol Succinate ER 25 MG Oral Tablet Extended Release 24 Hour (Toprol XL) Take 1 Tablet by mouth at bedtime. 34 Tablet 6 01/27/2024 Active Lisinopril 10 MG Oral Tablet (Prinivil) Take 1 Tablet by mouth in the morning. 30 Tablet 5 02/10/2024 Active Pravastatin Sodium 40 MG Oral Tablet (Pravachol)Indic ations:Dyslipide isabell Take 1 Tablet by mouth every evening. 100 Tablet 3 02/10/2024 Active Metoprolol Succinate ER 50 MG Oral Tablet Extended Release 24 Hour (toPROL XL)Indications:H /O ventricular tachycardia TAKE 1 TABLET BY MOUTH ONCE DAILY 90 Tablet 3 03/21/2024 Active Metoprolol Succinate ER 50 MG Oral Tablet Extended Release 24 Hour (toPROL XL)Indications:H /O ventricular tachycardia TAKE 1 TABLET BY MOUTH ONCE DAILY 90 Tablet 4 12/29/2022 4 Discontinued documented as of this encounter (statuses as of 03/21/2024) Active Problems Problem Noted Date Diagnosed Date Tetralogy of Fallot 02/08/2024 Chronic rhinitis 05/20/2020 Hypertrophy of both inferior nasal turbinates Recurrent acute sinusitis 05/20/2020 Deviated nasal septum 05/20/2020 Anterolisthesis 02/16/2017 H/O ventricular tachycardia 07/25/2013 S/P aortic aneurysm repair 05/16/2012 AICD (automatic cardioverter/defibrillator) pres ent Syncope History of tetralogy of Fallot repair Overview: as infant correct 1972 Dyslipidemia, goal LDL below 160 Overview: Hypercholesterolemia documented as of this encounter (statuses as of 03/21/2024) Immunizations Name Administration Dates Next Due COVID-19 mRNA, LNP-s, No Pre serve, 2-Dose Series (Vaybee) 06/30/2021,09/23/2020,09/03/2020 DTP Vaccine 10/28/2003 DTWP - Dipth/Tet/Whole Cell Pertussis 10/28/2003 Seasonal Influenza, PF, 6 M & above, IM , (FluLaval or Fluzone) 05/19/2021,07/17/2013,08/24/2012,2011,08/23/2011 Seasonal Influenza, Split, I IV3, With Preserve, Inj 07/17/2013,08/24/2012,08/23/2011 TD, Preservative Free 06/21/2022 TDAP (age 10 and older)(Boostrix) 10/28/2003 TDAP, Age 7 and older, IM (Adacel) 10/28/2003 documented as of this encounter Social History Tobacco Use Types Packs/Day Years Used Date Smoking Tobacco: Never Smokeless Tobacco: Never Alcohol Use Standard Drinks/Week Comments Yes 0 (1 standard drink = 0.6 oz pur e alcohol) infrequent PHQ-2 Answer Date Recorded PHQ Adult Total Score 0 08/23/2022 Hunger Vital Sign Answer Date Recorded Worried About Running Out of Food in the Last Ye ar Never true 05/08/2020 Ran Out of Food in the Last Year Never true 05/08/2020 Utilities Answer Date Recorded Do you have trouble paying y our heating, water, or electric bill? (Adult - for ages 18 years and over) Not on file 01/31/2024 Is your family able to pay t he heat, water, or electric bill? (Household - for ages 0-17 years) Not on file 01/31/2024 Does your family have access to good internet? (Household - for ages 0-17 years) Not on file 01/31/2024 Social Connections Answer Date Recorded How often do you feel lonely or isolated from those around you? (Adult - for ages 18 years and over) Not on file 01/31/2024 Sex and Gender Information Value Date Recorded Sex Assigned at Male 12/18/2018 9:08 AM EDT Gender Identity Male 12/18/2018 9:08 AM EDT Sexual Orientation Straight 12/18/2018 9: 08 AM EDT Job Start Date Occupation Industry Not on file Not on file Not on file documented as of this encounter Miscellaneous Notes * Telephone Encounter - Reg Silva DO - 03/21/2024 8:54 AM EDTSigned Prescriptions: Disp Refills Metoprolol Succinate ER 50 MG Oral Tablet *90 Tab*3 Sig: TAKE 1 TABLET BY MOUTH ONCE DAILY Authorizing Provider: REG SILVA * Telephone Encounter - Molly Quintanilla CMA - 03/20/2024 11:34 AM EDTPending Prescriptions: Disp Refills Metoprolol Succinate ER 50 MG Oral Tablet *90 Tab*3 Sig: TAKE 1 TABLET BY MOUTH ONCE DAILY * Telephone Encounter - Molly Quintanilla CMA - 03/20/2024 11:34 AM EDT Did you pend patient's preferred pharmacy and medication before forwarding?yes Pharmacy: [facility] [id number] Pending Prescriptions: Disp Refills Metoprolol Succinate ER 50 MG Oral Tablet*90 Tab*3 Sig: TAKE 1 TABLET BY MOUTH ONCE DAILY Last Visit: 12/09/2023 (in office), Visit date not found (telemedicine) Next Visit: 04/10/2024 If no future appointments scheduled, and last appointment is greater than a year ago, please schedule patient for a follow-up appointment Last date the medication was ordered: 12-29-2022 Is this request for a controlled substance?No Urine Drug Screen:No results found for this or any previous visit. Patient Phone Numbers Labs: Lab Results Component Value Date/Time CREAT 0.8 10/18/2023 04:44 PM CREAT 1.0 07/02/2020 08:05 AM POTASSIUM 4.1 10/18/2023 04:44 PM POTASSIUM 4.8 07/02/2020 08:05 AM TSH 2.42 10/18/2023 04:44 PM TSH 1.27 12/17/2014 01:10 PM LDLCALC 162 (H) 12/14/2023 07:39 AM LDLCALC 150 (H) 07/02/2020 08:05 AM LDLDIRECT NOT APPLICABLE 07/02/2020 08:05 AM LDLDIRECT 141 (H) 12/17/2014 01:10 PM ALT 45 08/23/2022 09:03 AM ALT 31 07/02/2020 08:05 AM HGBA1C 5.6 07/02/2020 08:05 AM * Telephone Encounter - Interface, E-Rx Ss Inbound - 03/20/2024 6:03 AM EDT Pending Prescriptions: Disp Refills Metoprolol Succinate ER 50 MG Oral Tablet *90 Tab*0 Sig: TAKE 1TABLET BY MOUTH ONCE DAILY documented in this encounter Plan of Treatment Upcoming Encounters Date Type Department Care Team (Late st Contact Info) Description 04/10/2024 12:15 PM EDT Office Visit Cardiology, [facility] [address] [facility] [place] [address] Loan Taylor DO [address] [facility] [place] [id number] 06/14/2024 9:30 AM EDT [facility] Visit [facility], [facility] [place] [address] Reg Silva DO [address] [facility] [place] [address] Health Maintenance Due Date Last Done Comments HIV Screening 1981 Hepatitis C Screening 1984 Hepatitis B Vaccine (1 of 3 - 19+ 3-dose series) 1985 Cologuard 2011 Fecal Occult Blood Test 2011 Sigmoidoscopy 2011 Zoster Vaccines (1 of 2) 2016 COVID-19 Vaccine ( season) 2023 06/30/2021, 09/23/2020, 09/03/2020 Depression Screening 08/23/2023 08/23/2022 Influenza Vaccine (FLU shot) (#1) 2024 05/19/2021, 07/17/2013, 07/17/2013, Additional history exists Diabetes Screening 10/17/2026 10/18/2023, 0 08/23/2022, 07/02/2020, Additional history exists Lipid Panel 12/13/2028 12/14/2023, 06/15, 12/17/2014, Additional history exists DTaP,Tdap,and Td Vaccines (6 - Td or Tdap) 06/21/2032 06/21/2022, 10/28/2003, 10/28/2003, Additional history exists Colonoscopy 10/13/2032 10/13/2022, 10/13/2012 Colorectal Cancer Screening 10/13/2032 HPV (Gardasil) Vaccine Aged Out No lo nger eligible based on patient's age to complete this topic MENINGOCOCCAL (MENACTRA/MENVEO) Aged Out No longer eligible based on patient's age to complete this topic Pneumococcal Vaccine: Pediatrics (0 to 5 Years) and At-Risk Patients (6 to 64 Years) Aged Out No longer eligible based on patient's age to complete this topic documented as of this encounter Medical Devices Not on filedocumented as of this encounter Visit Diagnoses Diagnosis H/O ventricular tachycardia Personal history of other diseases of circulatory system documented in this encounter Care Teams Sales Service Assistant Relationship Specialty Start Date End Date Sofie Burgess MD [address] [place] [address] PCP - General 10/13/09 documented as of this encounter
--- OUTSIDE RECORDS SUMMARY | 2024-06-26 09:05 | External Medical Summary | Summary of Care ---
Author Name Unknown Organization [facility] Address [address] [place] [address] Phone [phone] Care Team Providers Care Rn Imaging Name Role Phone Sofie Burgess MD Primary Care Provider + Reason for Visit * Reason Onset Date Comments Patient Instructions 04/10/2024 Encounter Details Date Type Department Care Team (Late st Contact Info) Description 04/10/2024 Telephone Cardiology, [place] [address] [place] [address] Loan Taylor, [address] [place] [address] Patient Instructions Allergies Active Allergy Reactions Criticality Noted Date Comments Atorvastatin Muscle pain 03/13/2014 Other Allergy (See Comments) Medium 12/24/2018 General Anesthesia Other reaction(s): COMBATIVE documented as of this encounter (statuses as of 04/10/2024) Medications Medication Sig Dispensed Refills Start Date End Date Status Aspirin 81 MG Tablet Once daily 12/18/2014 Acti ve ibuprofen (EQ IBUPROFEN) 200 MG TabletIndications:Ac nondalton left-sided low back pain without sciatica,Spasm of muscle Take 2 Tabs by mouth every 6 hours as needed for Pain. 30 Tab 02/16/2017 Active acetaminophen (TYLENOL) 500 MG TabletIndications:Ac nondalton right-sided low back pain with right-sided sciatica Take 2 Tabs by mouth every 8 hours as needed for Pain or Fever. 100 Tab 02/28/2018 Active Multiple Vitamin (MULTI-DAY) Tablet Take 1 Tab by mouth daily. Active Melatonin ER 1 MG Oral Tablet Extended ReleaseIndications:O ther insomnia Taking melatonin unsure dose--chg to ER [...] HFA 108 (90 Base) MCG/ACT Inhalation Aerosol SolutionIndications: Wheezing Inhale 2 Puffs by mouth every 4 hours as needed for Wheezing. 18 g 11/15/2022 Active Albuterol Sulfate HFA 108 (90 Base) MCG/ACT Inhalation Aerosol SolutionIndications: Acute cough,Bronchitis, complicated,Wheezing ,Shortness of breath Inhale 2 Puffs by mouth every 4 hours as needed for Wheezing. 18 g 11/14/2023 Active Cetirizine HCl 10 MG Oral Capsule Take 1 Capsule by mouth in the morning. Active Omeprazole 40 MG Oral Capsule Delayed Release (PriLOSEC) TAKE 1 CAPSULE BY MOUTH EVERY MORNING 1 HOURS BEFORE FIRST MEAL OF THE DAY. 90 Capsule 3 12/13/2023 Active Metoprolol Succinate ER 25 MG Oral Tablet Extended Release 24 Hour (Toprol XL) Take 1 Tablet by mouth at bedtime. 34 Tablet 6 01/27/2024 Active Lisinopril 10 MG Oral Tablet (Prinivil) Take 1 Tablet by mouth in the morning. 30 Tablet 5 02/10/2024 Active Pravastatin Sodium 40 MG Oral Tablet (Pravachol)Indicatio ns:Dyslipidemia Take 1 Tablet by mouth every evening. 100 Tablet 3 02/10/2024 Active Metoprolol Succinate ER 50 MG Oral Tablet Extended Release 24 Hour (toPROL XL)Indications:H/O ventricular tachycardia TAKE 1 TABLET BY MOUTH ONCE DAILY 90 Tablet 3 03/21/2024 Active documented as of this encounter (statuses as of 04/10/2024) Active Problems Problem Noted Date Diagnosed Date Tetralogy of Fallot 02/08/2024 Chronic rhinitis 05/20/2020 Hypertrophy of both inferior nasal turbinates Recurrent acute sinusitis 05/20/2020 Deviated nasal septum 05/20/2020 Anterolisthesis 02/16/2017 H/O ventricular tachycardia 07/25/2013 S/P aortic aneurysm repair 05/16/2012 AICD (automatic cardioverter/defibrillator) pres ent Syncope History of tetralogy of Fallot repair Overview: as correct 1972 Dyslipidemia, goal LDL below 160 Overview: Hypercholesterolemia documented as of this encounter (statuses as of 04/10/2024) Immunizations Name Administration Dates Next Due COVID-19 mRNA, LNP-s, No Pre serve, 2-Dose Series (BloomBoard) 06/30/2021,09/23/2020,09/03/2020 DTP Vaccine 10/28/2003 DTWP - Dipth/Tet/Whole [...] encounter Miscellaneous Notes * Telephone Encounter - Ladi Morton NRCMA - 04/10/2024 1:31 PM EDT Device Instructions Procedure Date: 05/29/2024 Time: 8 AM Location: [facility] Main Entrance- Outpatient Registration, [address] [place] [address] Patient was notified via written instructions given at office visit. Nothing to eat or drink after midnight, You may have clear liquids 4 hours prior to procedure No caffeine 24 hours prior to procedure No tobacco products after midnight Arrive at [facility] at 7 am in the Medical Treatment Unit/Same Day Surgery Desk and check in at the registration desk. Meds to hold AM of procedure include- any over the counter vitamins, Fish oil and/or Vit E. Pt may take all other medications regularly scheduled that morning including aspirin. Additional labs or testing needed: BY 05/19 Bring all of your medications with you in their original containers. Use Chlorhexidine wash the evening prior to and the morning of the procedure. Follow instructions given with the wash. You may remain at [facility] Overnight for observation. Wound check in [facility] Cardiology [facility]. Your wound is NOT PERMITTED to get wet in any way while site is covered by bandage. You are unable to shower/swim/hot tub until given permission by clinic nurse in the office. Call Lisa at [phone] with any questions or concerns. documented in this encounter Plan of Treatment Upcoming Encounters Date Type Department Care Team (Late st Contact Info) Description 06/07/2024 9:00 AM EDT Cardiac Studies Cardiology, [facility] [address] [place] [address] [facility] [address] [place] [address] 06/14/2024 9:30 AM EDT [facility], [facility] [place] [address] Reg Kidd DO [address] [place] [address] 05/10/2025 9:00 AM EDT Office Visit Cardiology, [facility] [address] [facility] [place] [address] Rebeka Middleton, ZHAO [address] [facility] [place] [phone] Health Maintenance Due Date Last Done Comments [...] 12/13/2028 12/14/2023, 06/15, 12/17/2014, Additional history exists DTap/Tdap Vaccines (6 - Td or Tdap) 06/21/2032 [...] Not on filedocumented as of this encounter Care Teams Rn Imaging Relationship Specialty Start Date End Date Sofie Burgess MD [address] [place] [address] PCP - General 10/13/09 documented as of this encounter
--- OUTSIDE RECORDS SUMMARY | 2024-06-26 09:05 | External Medical Summary ---
Author Name Unknown Address Unknown Organization [id number]:LAB[facility]ATORY [facility] - [address] [place] [address] Laboratory Report Ordering Provider Test Date Status PINO NOVA 03/07/2024 08:10:19 Final Observation Date Value Abnormality Reference (Units ) Status CRP, low-sensitivity 03/07/2024 08:10:19 <3 <=5 (mg/L) Final Performing Location LABORATORY [facility] - [address] [place] [id number]
--- OUTSIDE RECORDS SUMMARY | 2024-06-26 09:05 | External Medical Summary ---
Author Name Unknown Address Unknown Organization [id number]:LABORATORY [facility] - [address] [place] [address] Laboratory Report Ordering Provider Test Date Status AVTARPINO 03/07/2024 08:10:19 Final Observation Date Value Abnormality Reference (Units ) Status CK 03/07/2024 08:10:19 131 39-308 (U/ L) Final Performing Location LABORATORY [facility] - [address] [place] [address]
--- OUTSIDE RECORDS SUMMARY | 2024-06-26 09:05 | External Medical Summary ---
Author Name Unknown Address Unknown Organization [id number]:LABORATORY [place] [address] [facility] [address] Laboratory Report Ordering Provider Test Date Status PINO NOVA 03/07/2024 08:10:19 Final Observation Date Value Abnormality Reference (Units ) Status Nuclear IgG Ab [Ratio] in Serum by Immunoassay 03/07/2024 08:10:19 Negative Negative Final DNA double strand Ab [Presence] in Serum 03/07/2024 08:10:19 Negative Negative Final DOUBLE STRANDED DNA VALUE - [facility] 03/07/2024 08:10:19 1.1 <20 (IU/mL) Final Extractable nuclear Ab [Presence] in Serum 03/07/2024 08:10:19 Negative Negative Final Nuclear IgG Ab [Ratio] in Serum by Immunoassay 03/07/2024 08:10:19 0.2 <0.7 (Ratio) Final Screening is based on detect ion of the following antibodies: dsDNA, U1-CHIROPRACTOR SOLE PRACTITIONER (RNP70, A, C), SS-A/Ro, SS-B / La, Sofiya-1, Scl-70, Centromere B proteins and Sm proteins. In conjunction with clinical findings, this can aid in the diagnosis of systemic lupus erythematosous (SLE), mixed connective tissue disease (MCTD), Sjogren's syndrome, scleroderma and polymyositis/dermatomyositis.
However, a negative result does not rule out systemic rheumatic or other autoimmune disease. If clinically suspected, further evaluation and testing may be necessary. Please consult with Rheumatology Department.
Methodology: Fluorescent Enzyme Immunoassay. Performing Location LABORATORY [place] [address] [facility] [address]
--- OUTSIDE RECORDS SUMMARY | 2024-06-26 09:05 | External Medical Summary | Summary of Care ---
Author Name Unknown Organization [facility] Address [address] [place] [address] Phone [phone] Care Team Providers Care [employer] Name Role Phone Sofie Burgess MD Primary Care Provider + Reason for Visit * Reason Comments Outpatient Testing Encounter Details Date Type Department Care Team (Late st Contact Info) Description 03/07/2024 8:10 AM EDT Laboratory [facility] [address] [place] [id number] [place], Lab Scenery [address] [place] [address] Stiffness of hand joint, unspecified laterality; Arthralgia of knee, unspecified laterality; Tick bite, unspecified site, initial encounter Allergies Active Allergy Reactions Criticality Noted Date Comments Atorvastatin Muscle pain 03/13/2014 Other Allergy (See Comments) Medium 12/24/2018 General Anesthesia Other reaction(s): COMBATIVE documented as of this encounter (statuses as of 03/07/2024) Medications Medication Sig Dispensed Refills Start Date End Date Status Aspirin 81 MG Tablet Once daily 12/18/2014 Active ibuprofen (EQ IBUPROFEN) 200 MG TabletIndications:A cute left-sided low back pain without sciatica,Spasm of muscle Take 2 Tabs by mouth every 6 hours as needed for Pain. 30 Tab 02/16/2017 Active acetaminophen (TYLENOL) 500 MG TabletIndications:A cute right-sided low back pain with right-sided sciatica Take 2 Tabs by mouth every 8 hours as needed for Pain or Fever. 100 Tab 02/28/2018 Active Multiple Vitamin (MULTI-DAY) Tablet Take 1 Tab by mouth daily. Active Melatonin ER 1 MG Oral Tablet Extended ReleaseIndications: Other insomnia Taking melatonin unsure dose--chg to ER [...] HFA 108 (90 Base) MCG/ACT Inhalation Aerosol SolutionIndications :Wheezing Inhale 2 Puffs by mouth every 4 hours as needed for Wheezing. 18 g 11/15/2022 Active Metoprolol Succinate ER 50 MG Oral Tablet Extended Release 24 Hour (toPROL XL)Indications:H/O ventricular tachycardia TAKE 1 TABLET BY MOUTH ONCE DAILY 90 Tablet 4 12/29/2022 Active Albuterol Sulfate HFA 108 (90 Base) MCG/ACT Inhalation Aerosol SolutionIndications :Acute cough,Bronchitis, complicated,Wheezin g,Shortness of breath Inhale 2 Puffs by mouth [...] Active Pravastatin Sodium 40 MG Oral Tablet (Pravachol)Indicati ons:Dyslipidemia Take 1 Tablet by mouth every evening. 100 Tablet 3 02/10/2024 Active documented as of this encounter (statuses as of 03/07/2024) Active Problems Problem Noted Date Diagnosed Date [...] as of this encounter (statuses as of 03/07/2024) Immunizations Name Administration Dates Next Due COVID-19 mRNA, LNP-s, No Pre serve, 2-Dose Series (Skulpt) 06/30/2021,09/23/2020,09/03/2020 DTP Vaccine 10/28/2003 DTWP - Dipth/Tet/Whole [...] on file documented as of this encounter Plan of Treatment Upcoming Encounters Date Type Department Care Team (Late st Contact Info) Description 04/10/2024 12:15 PM EDT Office Visit Cardiology, [facility] [address] [facility] [place] [address] Loan Taylor, DO [address] [place] [address] [place] [id number] 06/14/2024 9:30 AM EDT [facility] [address] [facility] [place] [address] Reg Kidd DO [address] [facility] [place] [id number] Pending Results Name Type Priority Associated Diagnoses Date /Time CK Lab Routine Stiffness of hand joint, unspecified laterality Arthralgia of knee, unspecified laterality 03/07/2024 8:10 AM EDT ERYTHROCYTE SEDIMENTATION RATE (ESR) Lab Routine Stiffness of hand joint, unspecified laterality Arthralgia of knee, unspecified laterality 03/07/2024 8:10 AM EDT CRP (INFLAMMATORY MARKER) Lab Routine Stiffness of hand joint, unspecified laterality Arthralgia of knee, unspecified laterality 03/07/2024 8:10 AM EDT RHEUMATOID FACTOR Lab Routine Stiffness of hand joint, unspecified laterality Arthralgia of knee, unspecified laterality 03/07/2024 8:10 AM EDT ANTINUCLEAR ANTIBODY (CADEN) EIA SCREEN WITH REFLEX AB QUANT Lab Routine Stiffness of hand joint, unspecified laterality Arthralgia of knee, unspecified laterality 03/07/2024 8:10 AM EDT LYME DISEASE ANTIBODY SCREEN WITH REFLEX TO CONFIRMATION Lab Routine Arthralgia of knee, unspecified laterality Tick bite, unspecified site, initial encounter 03/07/2024 8:10 AM EDT ANTINUCLEAR ANTIBODY (CADEN) SCREEN, BRET Lab Routine Stiffness of hand joint, unspecified laterality Arthralgia of knee, unspecified laterality 03/07/2024 8:10 AM EDT LYME DISEASE ANTIBODY SCREEN Lab Routine Arthralgia of knee, unspecified laterality Tick bite, unspecified site, initial encounter 03/07/2024 8:10 AM EDT Health Maintenance Due Date Last Done Comments [...] Not on filedocumented as of this encounter Procedures Procedure Name Priority Date/Time Associated Diagnosis Comments DIFFERENTIAL, AUTOMATED Routine 03/07/2024 8:10 AM EDT Stiffness of hand joint, unspecified laterality Arthralgia of knee, unspecified laterality CBC Routine 03/07/2024 8:10 AM EDT Stiffness of hand joint, unspecified laterality Arthralgia of knee, unspecified laterality CBC Routine 03/07/2024 8:10 AM EDT Stiffness of hand joint, unspecified laterality Arthralgia of knee, unspecified laterality documented in this encounter Results * (ABNORMAL) DIFFERENTIAL, AUTOMATED (03/07/2024 8:10 AM EDT) WBC 4.81 4.00 - 10.80 K/uL 03/07/2024 8:22 AM EDT [facility] Neutrophils % 41.2 40.0 - 75.0 % 03/07/2024 8:22 AM EDT [facility]02 Lymphocytes % 42.6(H) 18.0 - 42.0 % 03/07/2024 8:22 AM EDT [facility]02 Monocytes % 13.3(H) 1.0 - 11.0 % 03/07/2024 8:22 AM EDT [facility]02 Eosinophils % 2.7 0.0 - 6.0 % 03/07/2024 8:22 AM EDT [facility]02 Basophils % 0.2 0.0 - 2.0 % 03/07/2024 8:22 AM EDT [facility]02 Absolute Neutrophils 1.98 1.80 - 7.70 K/uL 03/07/2024 8:22 AM EDT [facility] Absolute Lymphocytes 2.05 1.00 - 4.80 K/ul 03/07/2024 8:22 AM EDT [facility] Absolute Monocytes 0.64 0.00 - 1.10 K/uL 03/07/2024 8:22 AM EDT [facility] Absolute Eosinophils 0.13 0.00 - 0.70 K/uL 03/07/2024 8:22 AM EDT [facility] Absolute Basophils 0.01 0.00 - 0.20 K/uL 03/07/2024 8:22 AM EDT [facility] Blood Venous blood specimen / Unknown Venipuncture / Unknown 03/07/2024 8:10 AM EDT 03/07/2024 8:10 AM EDT Sofie Burgess MD LAB BLOOD [facility] [address] [place] [address] * CBC (03/07/2024 8:10 AM EDT) WBC 4.81 4.00 - 10.80 K/uL 03/07/2024 8:22 AM EDT [facility] RBC 4.98 4.50 - 5.25 M/uL 03/07/2024 8:22 AM EDT [facility] HGB 15.2 14.0 - 16.8 g/dL 03/07/2024 8:22 AM EDT [facility] HCT 43.7 40.0 - 48.4 % 03/07/2024 8:22 AM EDT [facility] MCV 87.8 82.0 - 99.5 fL 03/07/2024 8:22 AM EDT [facility] MCH 30.5 27.0 - 34.0 pg 03/07/2024 8:22 AM EDT [facility] MCHC 34.8 32.0 - 36.0 g/dL 03/07/2024 8:22 AM EDT [facility] RDW 12.4 11.5 - 15.5 % 03/07/2024 8:22 AM EDT [facility] PLT 148 140 - 400 K/uL 03/07/2024 8:22 AM EDT [facility] MPV 8.9 6.6 - 11.1 fL 03/07/2024 8:22 AM EDT [facility] Blood Venous blood specimen / Unknown Venipuncture / Unknown 03/07/2024 8:10 AM EDT 03/07/2024 8:10 AM EDT Sofie Burgess MD LAB BLOOD [facility] [address] documented in this encounter Visit Diagnoses Diagnosis Stiffness of hand joint, unspecified laterality Arthralgia of knee, unspecified laterality Tick bite, unspecified site, initial encounter documented in this encounter Care Teams [employer] Relationship Specialty Start Date End Date Sofie Burgess MD [address] [facility] [address] PCP - General 10/13/09 documented as of this encounter
--- OUTSIDE RECORDS SUMMARY | 2024-06-26 09:05 | External Medical Summary ---
Author Name Unknown Address Unknown Organization [id number]:[facility] [address] [place] [id number] Laboratory Report Ordering Provider Test Date Status PINO NOVA 03/07/2024 08:10:19 Final Observation Date Value Abnormality Reference (Units ) Status Erythrocyte sedimentation rate by Photometric method 03/07/2024 08:10:19 4 <20 (mm/hour) Final Performing Location [facility] - [address] [place] [address]
--- OUTSIDE RECORDS SUMMARY | 2024-06-26 09:05 | External Medical Summary ---
Author Name Unknown Address Unknown Organization [id number]:[facility] [place] [address] Laboratory Report Ordering Provider Test Date Status PINO NOVA 03/07/2024 08:10:19 Final Observation Date Value Abnormality Reference (Units ) Status WBC, Total 03/07/2024 08:10:19 4.81 4.00-10.8 0 (K/uL) Final RBC 03/07/2024 08:10:19 4.98 4.50-5.25 (M/uL) Final Hemoglobin 03/07/2024 08:10:19 15.2 14.0-16.8 (g/dL) Final HCT 03/07/2024 08:10:19 43.7 40.0-48.4 (%) Final MCV 03/07/2024 08:10:19 87.8 82.0-99.5 (fL) Final MCH 03/07/2024 08:10:19 30.5 27.0-34.0 (pg) Final MCHC 03/07/2024 08:10:19 34.8 32.0-36.0 (g/dL) Final RDW 03/07/2024 08:10:19 12.4 11.5-15.5 (%) Final Platelets 03/07/2024 08:10:19 148 140-400 (K /uL) Final MPV 03/07/2024 08:10:19 8.9 6.6-11.1 ( fL) Final Performing Location [facility] [place] [address]
--- OUTSIDE RECORDS SUMMARY | 2024-06-26 09:05 | External Medical Summary | Summary of Care ---
Author Name Unknown Organization [facility] Address [address] [place] [address] Phone [phone] Care Team Providers Care Anthropometrist Name Role Phone Sofie Burgess MD Primary Care Provider + Reason for Visit * Reason Comments Consultation * Evaluate & Treat - Unlimited Visits (Within 30 days (routine)) - Pending Review Specialty Diagnoses / Procedures Referred By Contact Referred To Contact Cardiac Electrophysiology / Cardiology Diagnoses Tetralogy of Fallot NSVT (nonsustained ventricular tachycardia) (HCC) Reg Kidd DO [address] [facility] [place] [address] Referral ID Status Reason Start Date Expiration Date Visits Requested Visits Authorized [id number] Pending Review Specialty Services Required 01/27/[phone] Encounter Details Date Type Department Care Team (Late st Contact Info) Description 04/10/2024 12:15 PM EDT Office Visit Cardiology, [facility] [address] [place] [address] Loan Taylor DO [address] [place] [address] [place] [phone] VT (ventricular tachycardia) (HCC)*; Bradycardia, sinus; Syncope, unspecified syncope type; History of tetralogy of Fallot repair; NSVT (nonsustained ventricular tachycardia) (HCC); Pre-operative cardiovascular examination Allergies Active Allergy Reactions Criticality Noted Date Comments Atorvastatin Muscle pain 03/13/2014 Other Allergy (See Comments) Medium 12/24/2018 General Anesthesia Other reaction(s): COMBATIVE documented as of this encounter (statuses as of 04/10/2024) Medications Medication Sig Dispensed Refills Start Date End Date Status Aspirin 81 MG Tablet Once daily 12/18/2014 Acti ve ibuprofen (EQ IBUPROFEN) 200 MG TabletIndications:Ac [place] left-sided low back pain without sciatica,Spasm of muscle Take 2 Tabs by mouth every 6 hours as needed for Pain. 30 Tab 02/16/2017 Active acetaminophen (TYLENOL) 500 MG TabletIndications:Ac [place] right-sided low back pain with right-sided sciatica [...] mRNA, LNP-s, No Pre serve, 2-Dose Series ([employer]) 06/30/2021,09/23/2020,09/03/2020 DTP Vaccine 10/28/2003 DTWP - Dipth/Tet/Whole [...] on file documented as of this encounter Last Filed Vital Signs Vital Sign Reading Time Taken Comments Blood Pressure 138/72 04/10/2024 12:34 PM EDT Pulse 60 04/10/2024 12:34 PM EDT Temperature - - Respiratory Rate 16 04/10/2024 12:34 PM EDT Oxygen Saturation - - Inhaled Oxygen Concentration - - Weight 110.7 kg (244 lb) 04/10/2024 12:34 PM EDT Height 190.5 cm (6' 3") 04/10/2024 12:34 PM EDT Body Mass Index 30.5 04/10/2024 12:34 PM EDT documented in this encounter Progress Notes * Loan Taylor DO - 04/10/2024 12:39 PM EDT Subjective Gallo Brennan is a 58 year old male. Chief Complaint Patient presents with Consultation Pt referred to EP due to VT Referring Provider: Dr. Kidd Cardiac Problems: H/o syncope s/p EPS in 2001 at [facility] with inducible VT which lead to an ICD; s/p ICD then explanted in 2008 at the time of the generator change as per patient request (One ICD shock inappropriate for ST Tetrology of Fallot s/p repair at age 6 Sinus bradycardia Aortic root and ascending aortic aneurysm s/p Aortic valve repair and hemiarch replacement 01/2008 HTN HLD HPI: Back in 07/2002; he went to a grocery he was standing waiting for the telegraph service clerk to get pictures he was picking up; he had sudden onset lightheadedness or dizziness then he quickly passed out-and he fell taking out the flower display; he does not recall any head injury; he was an EMS at the time and hiscolleagues picked him up-they say he was cyanotic; he was intubated in the field-he does not recallif he was shocked at all or what his presenting rhythm was. Pt does report episodes of palpitations at times with associated lightheadedness and dizziness no overt sycnope PMH: Patient Active Problem List Diagnosis AICD (automatic cardioverter/defibrillator) present Syncope History of tetralogy of Fallot repair Dyslipidemia, goal LDL below 160 S/P aortic aneurysm repair H/O ventricular tachycardia Anterolisthesis Chronic rhinitis Hypertrophy of both inferior nasal turbinates Recurrent acute sinusitis Deviated nasal septum Tetralogy of Fallot Current Outpatient Medications Medication Sig Dispense Refill Aspirin 81 MG Tablet Once daily ibuprofen (EQ IBUPROFEN) 200 MG Tablet Take 2 Tabs by mouth every 6 hours as needed for Pain. 30 Tab 0 acetaminophen (TYLENOL) 500 MG Tablet Take 2 Tabs by mouth every 8 hours as needed for Pain or Fever. 100 Tab 0 Multiple Vitamin (MULTI-DAY) Tablet Take 1 Tab by mouth daily. Melatonin ER 1 MG Oral Tablet Extended Release Taking melatonin unsure dose--chg to ER form and incupto 10 mg if needed 1 Tablet 0 Mylanta Coat & Cool 1200-270-80 MG/10ML Oral Suspension (Abrahan Carb-Mag Hydrox- Simeth) Take by mouth . Fluticasone Propionate HFA 110 MCG/ACT Inhalation Aerosol (Flovent HFA) Inhale 2 Puffs by mouth in the morning and 2 Puffs before bedtime. 12 g 5 ProAir HFA 108 (90 Base) MCG/ACT Inhalation Aerosol Solution Inhale 2 Puffs by mouth every 4 hours as needed for Wheezing. 18 g 0 Albuterol Sulfate HFA 108 (90 Base) MCG/ACT Inhalation Aerosol Solution Inhale 2 Puffs by mouth every 4 hours as needed for Wheezing. 18 g 0 Cetirizine HCl 10 MG Oral Capsule Take 1 Capsule by mouth in the morning. Omeprazole 40 MG Oral Capsule Delayed Release (PriLOSEC) TAKE 1 CAPSULE BY MOUTH EVERY MORNING 1 HOURS BEFORE FIRST MEAL OF THE DAY. 90 Capsule 3 Metoprolol Succinate ER 25 MG Oral Tablet Extended Release 24 Hour (Toprol XL) Take 1 Tablet by mouth at bedtime. 34 Tablet 6 Lisinopril 10 MG Oral Tablet (Prinivil) Take 1 Tablet by mouth in the morning. 30 Tablet 5 Pravastatin Sodium 40 MG Oral Tablet (Pravachol) Take 1 Tablet by mouth every evening. 100 Tablet 3 Metoprolol Succinate ER 50 MG Oral Tablet Extended Release 24 Hour (toPROL XL) TAKE 1 TABLET BY MOUTH ONCE DAILY 90 Tablet 3 No current facility-administered medications for this visit. Past Medical History: Diagnosis Date Automatic implantable cardiac defibrillator in situ now removed(04/23) Cardiac disease 01/2005 aortic valve repaired and aortic root replaced foor an aneurysm. Dyslipidemia, goal LDL below 160 Hypercholesterolemia Syncope Tetralogy of Fallot as infant correct 1971 Past Surgical History: Procedure Laterality Date CARDIAC SURGERY PROCEDURE NEC 07/15/2002 AICD COLONOSCOPY W/ BIOPSY (RECTUM) 10/13/2012 COLONOSCOPY, DIAGNOSTIC (RECTUM) N/A 10/14/2022 [facility], Colonoscopy, normal scope /biopsies normal / COMPLETE REPAIR TETRALOGY OF FALLOT 08/15/1971 EGD, FLEXIBLE, DIAGNOSTIC N/A 10/13/2022 [facility], EGD, Mild Ring of GE junction at 41 cm, otherwise normal / normal biopsies. EGD, FLEXIBLE, DIAGNOSTIC 03/30/2023 [facility] - Schatzki ring / [facility] EGD, FLEXIBLE, W/BIOPSY 10/13/2012 inflammation at end of esophagus INFORMATION 08/15/2007 Aortic root aneurysm repair LAPAROSCOPY; CHOLECYSTECTOMY 11/09/2021 done at [facility] by Dr Saman Blunt LAPOROSCOPIC HERNIA REPAIR EDU 08/15/1970 Right groin MISCELLANEOUS ORDER ([facility] ONLY) 04/15/2009 AICD removed REPAIR BICEPS TENDON RUPTURE 08/15/2005 Left distal biceps tendon repair REPAIR RUPTURED ROTATOR CUFF, ACUTE 08/15/1998 Right shoulder Review of patient's allergies indicates: Allergen Reactions Other Allergy (See Comments) General Anesthesia Other reaction(s): COMBATIVE Atorvastatin Muscle pain Family History Problem Relation Name Age of Onset Heart Disorder Father Diabetes Mother Heart Disorder Mother Family Status Relation Status Fa Mo Alive Sis Alive Bro Alive Social History Socioeconomic History Marital status: Spouse name: Joanne Number of children: 2 Years of education: Not on file Highest education level: Not on file Occupational History Not on file Tobacco Use Smoking status: Never Smokeless tobacco: Never Vaping Use Vaping status: Never Used Substance and Sexual Activity Alcohol use: Yes Comment: infrequent Drug use: No Sexual activity: Yes Partners: Female Other Topics Concern Not on file Social History Narrative Not on file Social Determinants of Health Financial Resource Strain: Not on file Food Insecurity: No Food Insecurity (05/08/2020) Hunger Vital Sign Worried About Running Out of Food in the Last Year: Never true Ran Out of Food in the Last Year: Never true Transportation Needs: Not on file Social Connections: Unknown (01/31/2024) Social Connections How often do you feel lonely or isolated from those around you? (Adult - for ages 18 years and over): Not on file Housing Stability: Not on file Review of Systems Constitutional: Negative for activity change, chills, fatigue, fever and unexpected weight change. HENT: Negative for postnasal drip, rhinorrhea and sinus pressure. Eyes: Negative for visual disturbance. Respiratory: Negative for shortness of breath. Cardiovascular: Positive for palpitations. Negative for chest pain and leg swelling. Gastrointestinal: Negative for blood in stool, constipation, diarrhea, nausea and vomiting. Genitourinary: Negative for dysuria and hematuria. Musculoskeletal: Negative for gait problem. Skin: Negative for rash. Neurological: Positive for dizziness and light-headedness. Negative for syncope. Objective BP 138/72 | Pulse 60 | Resp 16 | Ht 1.905 m (6' 3") | Wt 110.7 kg (244 lb) | BMI 30.50 kg/m | BSA2.42 m Physical Exam Vitals and nursing note reviewed. Constitutional: General: He is awake. Appearance: Normal appearance. He is well-developed. HENT: Head: Normocephalic and atraumatic. Eyes: General: No scleral icterus. Extraocular Movements: Extraocular movements intact. Neck: Vascular: Normal carotid pulses. No carotid bruit or JVD. Cardiovascular: Rate and Rhythm: Normal rate and regular rhythm. Pulses: Carotid pulses are 2+ on the right side and 2+ on the left side. Radial pulses are 2+ on the right side and 2+ on the left side. Posterior tibial pulses are 2+ on the right side and 2+ on the left side. Heart sounds: S1 normal and S2 normal. Murmur heard. Pulmonary: Effort: Pulmonary effort is normal. Breath sounds: Normal breath sounds. No decreased breath sounds, wheezing, rhonchi or rales. Musculoskeletal: Cervical back: Neck supple. Right lower leg: No edema. Left lower leg: No edema. Skin: General: Skin is warm and dry. Neurological: General: No focal deficit present. Mental Status: He is alert and oriented to person, place, and time. Psychiatric: Attention and Perception: Attention normal. Mood and Affect: Mood normal. Speech: Speech normal. Behavior: Behavior normal. Behavior is cooperative. Thought Content: Thought content normal. Cognition and Memory: Cognition normal. Judgment: Judgment normal. RESULTS: Echocardiograms: 02/10/2024: Abnormal transthoracic echocardiogram . Known s/p repair TOF and valve sparing aortic root replacement There is mild left atrial dilitation. The tricuspid valve insufficiency jet estimates normal RV pressures of 25mmHg + RA pressure. AICD wires are seen in the RA and RV LV size is normal. Mild LVH. Septal hypokinesis with VSD patch. Diastolic dysfunction by mitral inflow and tissue Doppler The right ventricle is normal in structure, size and function. There is no pulmonary valve stenosis There is trivial to mild pulmonary insufficiency. The ascending aorta is mildly dilated . 11/29/2022: The qualitative LV ejection fraction is 60-64% (normal). The LV wall thickness is moderately increased (concentric). The left atrium is mildly enlarged (35-41 ml/m^2). Mild mitral regurgitation is present. The left ventricular diastolic function is mildly abnormal (grade I). Mild tricuspid regurgitation is present. There is no evidence of pulmonary hypertension. There is mild pulmonary regurgitation. The aortic root is mildly enlarged. The proximal ascending thoracic aorta is mildly enlarged. The patient is status post aortic valve repair. Aortic stenosis is absent. Mild aortic valve regurgitation is present. Aortic root and ascending aortic aneurysm status post aortic valve repair and hemiarch replacement. The patient is S/P Tetrology of Fallot repair. 10/15/2021: EF 60-65% LVH Grade I diastolic dysfunction AV left coronary cusp thickening Trace AI No PS Trace PI Mild MR No VSD with excellent surgical repair Overriding arotic root and ascending aorta c/w TOF no dissection or enlargement ECGS: 12/09/2023: SR 63bpm RBBB 12/08/2021: SR 65bpm Nonspecific IVCD Zio patch: 12/09/2023: REASON FOR STUDY: NSVT, h/o tetrology of Fallot repair CONCLUSIONS: Final Interpretation Indications: Nonsustained ventricular tachycardia, history of tetralogy of Fallot repair Duration: 13 days, 16 hours Preliminary Findings Prepared by Nolan Reddy, CCT 12/27/23 Patient had a min HR of 48 bpm, max HR of 188 bpm, and avg HR of 72 bpm. Predominant underlying rhythm was Sinus Rhythm. First Degree AV Block was present. Bundle Branch Block/IVCD was present. 3 Ventricular Tachycardia runs occurred, the run with the fastest interval lasting 8 beats with a max rate of 188 bpm, the longest lasting 8 beats with an avg rate of 126 bpm. 1 run of Supraventricular Tachycardia occurred lasting 8 beats with a max rate of 145 bpm (avg 110 bpm). Isolated SVEs were rare (<1.0%), SVE Triplets were rare (<1.0%), and no SVE Couplets were present. Isolated VEs were rare (<1.0%, 18096), VE Couplets were rare (<1.0%, 106), and VE Triplets were rare (<1.0%, 2). Ventricular Bigeminy and Trigeminy were present. No patient marker or diary entries were recorded Impression: Sinus rhythm with first-degree AV block, right bundle-branch block average rate 72 beats per minute with 3 runs of ventricular tachycardia, longest 8 beats in duration Lab Work Reviewed: Component Latest Ref Rng 08/23/2022 10/18/2023 12/14/2023 03/07/2024 BUN 6 - 20 mg/dL 15 12 Creatinine 0.6 - 1.2 mg/dL 0.8 0.8 Estimated Glomerular Filtration Rate >=60 mL/min >90 >90 Sodium 135 - 146 mmol/L 140 140 Potassium 3.5 - 5.1 mmol/L 4.6 4.1 Chloride 98 - 107 mmol/L 103 104 CO2 22 - 32 mmol/L 29 28 Anion Gap 7 - 15 mmol/L 8 8 Glucose 70 - 120 mg/dL 143 (H) 83 Albumin 3.8 - 5.0 g/dL 4.4 AST 10 - 50 U/L 27 Alkaline Phosphatase 35 - 130 U/L 55 Bilirubin, Total <=1.2 mg/dL 0.3 Calcium 8.4 - 10.2 mg/dL 9.2 9.0 Protein 6.0 - 8.3 g/dL 6.4 ALT 10 - 50 U/L 45 WBC 4.00 - 10.80 K/uL 3.98 (L) 4.81 Neutrophils % 40.0 - 75.0 % 53.1 41.2 Lymphocytes % 18.0 - 42.0 % 30.7 42.6 (H) Monocytes % 1.0 - 11.0 % 10.3 13.3 (H) Eosinophils % 0.0 - 6.0 % 4.8 2.7 Basophils % 0.0 - 2.0 % 0.3 0.2 Immature Granulocytes % 0.0 - 2.0 % 0.8 Absolute Neutrophils 1.80 - 7.70 K/uL 2.12 1.98 Absolute Lymphocytes 1.00 - 4.80 K/ul 1.22 2.05 Absolute Monocytes 0.00 - 1.10 K/uL 0.41 0.64 Absolute Eosinophils 0.00 - 0.70 K/uL 0.19 0.13 Absolute Basophils 0.00 - 0.20 K/uL 0.01 0.01 Absolute Immature Granulocytes 0.00 - 0.20 K/uL 0.03 WBC 4.00 - 10.80 K/uL 3.98 (L) 5.30 4.81 RBC 4.50 - 5.25 M/uL 4.85 4.85 4.98 HGB 14.0 - 16.8 g/dL 14.7 15.0 15.2 HCT 40.0 - 48.4 % 44.0 43.6 43.7 MCV 82.0 - 99.5 fL 90.7 89.9 87.8 MCH 27.0 - 34.0 pg 30.3 30.9 30.5 MCHC 32.0 - 36.0 g/dL 33.4 34.4 34.8 RDW 11.5 - 15.5 % 12.6 11.9 12.4 PLT 140 - 400 K/uL 171 161 148 MPV 6.6 - 11.1 fL 9.9 9.8 8.9 nRBCs <=0 /100 WBCs 0 0 Triglycerides <=174 mg/dL 161 Cholesterol <200 mg/dL 238 (H) HDL Cholesterol >39 mg/dL 44 Non-HDL Cholesterol <=159 mg/dL 194 (H) LDL Cholesterol <=129 mg/dL 162 (H) TSH 0.27 - 4.20 uIU/mL 2.42 ASSESSMENT: H/o syncope s/p EPS in 2001 at [facility] with inducible VT which lead to an ICD; s/p ICD then explanted in 2008 at the time of the generator change as per patient request (One ICD shock inappropriate for ST Tetrology of Fallot s/p repair at age 6 Sinus bradycardia NSVT on zio patch Aortic root and ascending aortic aneurysm s/p Aortic valve repair and hemiarch replacement 01/2008 HTN HLD PLAN: -I had a shared discussion with the patient about risk of recurrent sustained VT and SCD given his underlying congential cardiac condition of TOF on top of him having NSVT on zio patch monitors -Recommend reimplanting an ICD -ICD on 05/29; I am hoping to use the same leads and just connect a new generator; but I did discuss with him about if the leads upon intra-op testing do not function properly then I will have to insert new leads-he does not look occluded on physical exam today -Discussed procedure and risks which include but are not limited to arrhythmias, strokes, heart attacks, high risk injury to with blood vessels, lungs where he would need a chest tube or chamber of the heart where he would need a pericardiocentesis, , bleeding and infection with the patient and the family; they expressed an understanding and wish to proceed. -Continue metoprolol, lisinopril, pravastatin, ASA, lisinopril -Device and wound check 1 week after the procedure -Continue with general cardiology f/u as scheduled in May -EP f/u in May 2025 Loan Taylor DO documented in this encounter Nursing Notes * Ladi Morton NRCMA - 04/10/2024 12:39 PM EDT Patient was identified by name and date of . Examination Room: 17 Name: Gallo Brennan Date of : (1965). Reason for Visit: consult visit Interim Hospitalization(s): no Problems/Concerns: no Chest Pain/SOB: none current Medications reviewed and are up to date via: [employer] [facility] is a way you can talk to your provider online through e-mail. Would you like to sign up? I can activate it for you? ALREADY ACTIVE Do you have video visit capabilities (email and smart phone)? No. Would you be interested in 6 or 12 return visit being scheduled as a video visit if the provider approves? No Patient was instructed to not get up on the exam table/exam chair until directed and assisted by their provider; patient is to remain seated in the chair/ wheelchair/ exam table/ exam chair for fall prevention and safety reasons. Patient is aware to have assistance to step down off exam table/exam chair with personnel. Patient voiced full comprehension of instructions. MARY Amor documented in this encounter Plan of Treatment Upcoming Encounters Date Type Department Care Team (Late st Contact Info) Description 06/07/2024 9:00 AM EDT Cardiac Studies Cardiology, [facility] [address] [place] [address] [address] [address] [place] [address] 06/14/2024 9:30 AM EDT Office Visit Cardiology, [facility] [address] [place] [address] Reg Kidd DO [address] [place] [address] 05/10/2025 9:00 AM EDT Office Visit Cardiology, [facility] [address] [place] [address] Rebeka Middleton CRNP [address] [place] [id number] Scheduled Orders Name Type Priority Associated Diagnoses Orde r Schedule CBC Lab Routine VT (ventricular tachycardia) (HCC) Bradycardia, sinus Expected: 04/10/2024, Expires: 04/10/2025 BASIC METABOLIC PANEL Lab Routine VT (ventricular tachycardia) (HCC) Bradycardia, sinus Expected: 04/10/2024, Expires: 04/10/2025 Health Maintenance Due Date Last Done Comments [...] as of this encounter Visit Diagnoses Diagnosis VT (ventricular tachycardia) (HCC)- Primary Paroxysmal ventricular tachycardia Bradycardia, sinus Other specified cardiac dysrhythmias Syncope, unspecified syncope type History of tetralogy of Fallot repair Personal history of surgery to heart and great vessels, presenting hazards to health NSVT (nonsustained ventricular tachycardia) (HCC) Paroxysmal ventricular tachycardia Pre-operative cardiovascular examination documented in this encounter Care Teams Anthropometrist Relationship Specialty Start Date End Date Sofie Burgess MD [address] [facility] [place] [address] PCP - General 10/13/09 documented as of this encounter
--- OUTSIDE RECORDS SUMMARY | 2024-06-26 09:06 | External Medical Summary ---
Author Name Unknown Address Unknown Organization K01:[facility] [place] [address] [place] [id number] Laboratory Report Ordering Provider Test Date Status PINO NOVA 03/07/2024 08:10:19 Final Observation Date Value Abnormality Reference (Units ) Status Rheumatoid Factor 03/07/2024 08:10:19 <10 <1 4 (IU/mL) Final Performing Location [facility] - [address] [place] [id number]
--- OUTSIDE RECORDS SUMMARY | 2024-06-26 09:06 | External Medical Summary | Summary of Care ---
Author Name Unknown Organization [facility] Address [address] [place] [address] Phone [phone] Care Team Providers Care Content Development Manager Name Role Phone Sofie Burgess MD Primary Care Provider + Reason for Visit * Reason Onset Date Comments Test Results 02/29/2024 Encounter Details Date Type Department Care Team (Late st Contact Info) Description 02/29/2024 Telephone Cardiology, [facility] [address] [facility] [place] [address] Reg Kidd, [address] [place] [address] Test Results Allergies Active Allergy Reactions Criticality Noted Date Comments Atorvastatin Muscle pain 03/13/2014 Other Allergy (See Comments) Medium 12/24/2018 General Anesthesia Other reaction(s): COMBATIVE documented as of this encounter (statuses as of 02/29/2024) Medications Medication Sig Dispensed Refills Start Date [...] as of this encounter (statuses as of 02/29/2024) Active Problems Problem Noted Date Diagnosed Date [...] as of this encounter (statuses as of 02/29/2024) Immunizations Name Administration Dates Next Due COVID-19 mRNA, LNP-s, No Pre serve, 2-Dose Series ([facility]) 06/30/2021,09/23/2020,09/03/2020 DTP Vaccine 10/28/2003 DTWP - Dipth/Tet/Whole [...] encounter Miscellaneous Notes * Telephone Encounter - Teresa Valdez CMA - 02/29/2024 10:15 AM EDT ----- Message from Reg Kidd DO sent at 02/28/2024 3:55 PM EDT ----- Mild aortic root enlargement measuring 4.4 cm. Aortic root previously reported as 4.8 cm per echocardiogram (likely overestimation due to technical limitations). No medication changes recommended at this time. Follow-up as scheduled. documented in this encounter Plan of Treatment Upcoming Encounters Date Type Department Care Team (Late st Contact Info) Description 04/10/2024 12:15 PM EDT Office Visit Cardiology, [facility] [address] [place] [address] Loan Taylor DO [address] [place] [phone] 06/14/2024 9:30 AM EDT Office Visit Cardiology, [facility] [address] [place] [address] Reg Kidd DO [address] [place] [address] Health Maintenance Due Date Last Done Comments [...] filedocumented as of this encounter Care Teams Content Development Manager Relationship Specialty Start Date End Date Sofie Burgess MD [address] [facility] [place] [address] PCP - General 10/13/09 documented as of this encounter
--- OUTSIDE RECORDS SUMMARY | 2024-06-26 09:06 | External Medical Summary | Summary of Care ---
Author Name Unknown Organization [facility] Address [address] [place] [address] Phone [phone] Care Team Providers Care Screen Room Operator Name Role Phone Sofie Burgess MD Primary Care Provider + Reason for Referral * Evaluate & Treat - Unlimited Visits (Within 30 days (routine)) - Pending Review Specialty Diagnoses / Procedures Referred By Contact Referred To Contact Cardiac Electrophysiology / Cardiology Diagnoses Tetralogy of Fallot NSVT (nonsustained ventricular tachycardia) ([facility]) Reg Kidd DO [address] [place] [address] Referral ID Status Reason Start Date Expiration Date Visits Requested Visits Authorized [id number] Pending Review Specialty Services Required 01/27/[phone] Question Answer Referral Priority Within 30 days (routine) Where should this appointment be scheduled? [facility] nurse will coordinate with provider scheduling appt for pt Reason for Visit * Reason Onset Date Comments Test Results 01/25/2024 Encounter Details Date Type Department Care Team (Late st Contact Info) Description 01/25/2024 Telephone Cardiology, [facility] [address] [place] [address] Reg Kidd DO [address] [employer] [place] [address] Test Results Allergies Active Allergy Reactions Criticality Noted Date Comments Atorvastatin Muscle pain 03/13/2014 Other Allergy (See Comments) Medium 12/24/2018 General Anesthesia Other reaction(s): COMBATIVE documented as of this encounter (statuses as of 02/01/2024) Medications Medication Sig Dispensed Refills Start Date End Date Status Aspirin 81 MG Tablet Once daily 12/18/2014 Acti ve ibuprofen (EQ IBUPROFEN) 200 MG TabletIndications:[place] left-sided low back pain without sciatica,Spasm of muscle Take 2 Tabs by mouth every 6 hours as needed for Pain. 30 Tab 02/16/2017 Active acetaminophen (TYLENOL) 500 MG TabletIndications:[place] right-sided low back pain with right-sided sciatica [...] THE DAY. 90 Capsule 3 12/13/2023 Active Pravastatin Sodium 40 MG Oral Tablet (Pravachol)Indicatio ns:Dyslipidemia Take 1 Tablet by mouth every evening. 100 Tablet 3 12/22/2023 Active Lisinopril 5 MG Oral Tablet (Prinivil)Indication s:PVC (premature ventricular contraction),Prematu re atrial complexes,S/P ascending aortic aneurysm repair TAKE 1 TABLET BY MOUTH ONCE DAILY 90 Tablet 3 12/27/2023 Active Metoprolol Succinate ER 25 MG Oral Tablet Extended Release 24 Hour (Toprol XL) Take 1 Tablet by mouth at bedtime. 34 Tablet 6 01/27/2024 Active documented as of this encounter (statuses as of 02/01/2024) Active Problems Problem Noted Date Diagnosed Date Chronic rhinitis 05/20/2020 Hypertrophy of both inferior nasal turbinates Recurrent acute sinusitis 05/20/2020 Deviated nasal septum 05/20/2020 Anterolisthesis 02/16/2017 H/O ventricular tachycardia 07/25/2013 S/P aortic aneurysm repair 05/16/2012 Syncope History of tetralogy of Fallot repair Overview: as infant correct 1972 Dyslipidemia, goal LDL below 160 Overview: Hypercholesterolemia documented as of this encounter (statuses as of 02/01/2024) Resolved Problems Problem Noted Date Diagnosed Date Resolved Date Automatic implantable cardia c defibrillator in situ 07/25/2013 documented as of this encounter (statuses as of 02/01/2024) Immunizations Name Administration Dates Next Due COVID-19 mRNA, LNP-s, No Pre serve, 2-Dose Series (Phigital) 06/30/2021,09/23/2020,09/03/2020 DTP Vaccine 10/28/2003 DTWP - Dipth/Tet/Whole [...] encounter Miscellaneous Notes * Telephone Encounter - James Chacon OSA - 02/01/2024 11:28 AM EDT Called patient, he is setup for Dr. Taylor on: Tuesday Arrive by 12:00 PM Appt at 12:15 PM (1 hr) Patient is aware of the date and time. * Telephone Encounter - James Chacon OSA - 01/31/2024 3:48 PM EDT Thank you!, I LM for patient to call me back to schedule. * Telephone Encounter - Sheeba Darnell LPN - 01/27/2024 3:14 PM EDT Will ask Dr. Taylor if congenital cardiology visit is necessary first or if pt can be seen by EP. Referral placed, clinic nurse will handle scheduling * Telephone Encounter - Reg Kidd DO - 01/27/2024 2:39 PM EDT Rx sent to [facility]. Schedule EP evaluation. * Telephone Encounter - Dipesh Barrera LPN - 01/25/2024 1:49 PM EDT Called patient and left Dr. Kidd's message on an identified voicemail and sent MyChart message to make aware. Awaiting call back or MyChart reply to pend orders. ----- Message from Reg Kidd DO sent at 01/24/2024 9:00 PM EDT ----- Zio demonstrates 3 runs of NSVT and moderate PVC burden. Increase toprol XL to 50mg in AM and 25mg in evening. EP consultation re: NSVT, h/o Tetrology of fallot repair, h/o ICD removed 2009. documented in this encounter Plan of Treatment Upcoming Encounters Date Type Department Care Team (Late st Contact Info) Description 02/23/2024 4:00 PM EDT Cardiac Studies [facility], [facility] [place] [address] 02/23/2024 5:00 PM EDT Imaging Radiology [facility] [address] [facility] [place] [address] 04/10/2024 12:15 PM EDT Office Visit Cardiology, [facility] [address] [facility] [place] [address] [address], [address] [facility] [place] [address] 06/14/2024 9:30 AM EDT Office Visit Cardiology, [facility] [address] [facility] [place] [address] [facility] [place] [address] 07/27/2024 10:00 AM EST Office Visit Pediatric Cardiology, [facility] [address] [facility] [place] [address] Larry Pablo MD [address] [place], [place] [id number] Scheduled Referrals Name Type Priority Associated Diagnoses Order Schedule ELECTROPHYSIOLOGY REFERRAL OP Referral Within 30 days (routine) Tetralogy of Fallot NSVT (nonsustained ventricular tachycardia) (HCC) Ordered: 01/27/2024 Health Maintenance Due Date Last Done Comments HIV Screening 1981 Hepatitis C Screening 1984 Hepatitis B (1 of 3 - 19+ 3-dose series) 1985 Cologuard 2011 Fecal Occult Blood Test 2011 Sigmoidoscopy 2011 Zoster Vaccines (1 of 2) 2016 COVID-19 Vaccine ( season) 2023 06/30/2021, 09/23/2020, 09/03/2020 Depression Screening 08/23/2023 08/23/2022 Influenza Vaccine (FLU shot) (Season Ended) 2024 05/19/2021, 07/17/2013, 07/17/2013, Additional history exists Diabetes Screening 10/17/2026 10/18/2023, 0 08/23/2022, 07/02/2020, Additional history exists Lipid Panel 12/13/2028 12/14/2023, 06/15, 12/17/2014, Additional history exists DTaP,Tdap,and Td Vaccines (6 - Td or Tdap) 06/21/2032 06/21/2022, 10/28/2003, 10/28/2003, Additional history exists Colonoscopy 10/13/2032 10/13/2022, 10/13/2012 Colorectal Cancer Screening 10/13/2032 GARDASIL-HPV IMMUNIZATION SERIES Aged Out No longer eligible based on [...] as of this encounter Visit Diagnoses Diagnosis NSVT (nonsustained ventricular tachycardia) (HCC)- Primary Paroxysmal ventricular tachycardia Tetralogy of Fallot documented in this encounter Care Teams Screen Room Operator Relationship Specialty Start Date End Date Sofie Burgess MD [address] [facility] [place] [address] PCP - General 10/13/09 documented as of this encounter
--- OUTSIDE RECORDS SUMMARY | 2024-06-26 09:06 | External Medical Summary | Summary of Care ---
Author Name Unknown Organization [facility] Address [address] [place] [address] Phone [phone] Care Team Providers Care Training Specialist Name Role Phone Sofie Burgess MD Primary Care Provider + Encounter Details Date Type Department Care Team (Late st Contact Info) Description 03/06/2024 Orders Only PATIENT PORTAL DO NOT DELETE THIS [place] [id number] Allergies Active Allergy Reactions Criticality Noted Date Comments Atorvastatin Muscle pain 03/13/2014 Other Allergy (See Comments) Medium 12/24/2018 General Anesthesia Other reaction(s): COMBATIVE documented as of this encounter (statuses as of 03/06/2024) Medications Medication Sig Dispensed Refills Start Date [...] as of this encounter (statuses as of 03/06/2024) Active Problems Problem Noted Date Diagnosed Date [...] as of this encounter (statuses as of 03/06/2024) Immunizations Name Administration Dates Next Due COVID-19 mRNA, LNP-s, No Pre serve, 2-Dose Series (Corso12) 06/30/2021,09/23/2020,09/03/2020 DTP Vaccine 10/28/2003 DTWP - Dipth/Tet/Whole [...] Description 04/10/2024 12:15 PM EDT [facility] [address] [place] [address] Loan Taylor, DO [address] [facility] [place] [address] 06/14/2024 9:30 AM EDT Office Visit Cardiology, [facility] [address] [place] [address] Reg Kidd DO [address] [place] [address] Health Maintenance Due Date Last Done Comments [...] filedocumented as of this encounter Care Teams Training Specialist Relationship Specialty Start Date End Date Sofie Burgess MD [address] [place] [address] PCP - General 10/13/09 documented as of this encounter
--- OUTSIDE RECORDS SUMMARY | 2024-06-26 09:06 | External Medical Summary ---
Author Name Unknown Address Unknown Organization K01:[facility] - [address] [place] [address] Laboratory Report Ordering Provider Test Date Status PINO NOVA 03/07/2024 08:10:19 Final Observation Date Value Abnormality Reference (Units ) Status Borrelia burgdorferi IgG and IgM [Interpretation] in Serum by Immunoassay 03/07/2024 08:10:19 Negative Negative Final Performing Location [facility] - [address] [place] [address]
--- OUTSIDE RECORDS SUMMARY | 2024-06-26 09:06 | External Medical Summary ---
Author Name Unknown Address Unknown Organization K09:[facility] [place] [address] Laboratory Report Ordering Provider Test Date Status PINO NOVA 03/07/2024 08:10:19 Final Observation Date Value Abnormality Reference (Units ) Status SYNC LEUKOCYTES IN BLOOD BY AUTOMATED COUNT 03/07/2024 08:10:19 4.81 4.00-10.80 (K/uL) Final Segs 03/07/2024 08:10:19 41.2 40.0-75.0 (%) Final Lymphs % 03/07/2024 08:10:19 42.6 Above high normal 18.0-42.0 (%) Final Monos 03/07/2024 08:10:19 13.3 Above high normal 1.0-11.0 (%) Final Eosinophils 03/07/2024 08:10:19 2.7 0.0-6.0 (%) Final Basos 03/07/2024 08:10:19 0.2 0.0-2.0 (%) Final Absolute Segs 03/07/2024 08:10:19 1.98 1.80-7.70 (K/uL) Final Lymphs, absolute 03/07/2024 08:10:19 2.05 1.00-4.80 (K/ul) Final Monos, Abs 03/07/2024 08:10:19 0.64 0.00-1.10 (K/uL) Final Eos, Abs 03/07/2024 08:10:19 0.13 0.00-0.70 (K/uL) Final Basos, Abs 03/07/2024 08:10:19 0.01 0.00-0.20 (K/uL) Final Performing Location [facility] [place] [address]
--- OUTSIDE RECORDS SUMMARY | 2024-06-26 09:06 | External Medical Summary | Summary of Care ---
Author Name Unknown Organization [facility] Address [address] [place] [address] Phone [phone] Care Team Providers Care Marble Setter Name Role Phone Sofie Burgess MD Primary Care Provider + Reason for Referral * Evaluate & Treat - Unlimited Visits (Within 30 days (routine)) - Pending Review Specialty Diagnoses / Procedures Referred By Contact Referred To Contact Cardiac Electrophysiology / Cardiology Diagnoses Tetralogy of Fallot NSVT (nonsustained ventricular tachycardia) ([facility]) Reg Kidd DO [address] [place] [address] Referral ID Status Reason Start Date Expiration Date Visits Requested Visits Authorized [id number] Pending Review Specialty Services Required 01/27/[phone] Question Answer Referral Priority Within 30 days (routine) Where should this appointment be scheduled? [facility] nurse will coordinate with provider scheduling appt for pt Reason for Visit * Reason Onset Date Comments Test Results 01/25/2024 Encounter Details Date Type Department Care Team (Late st Contact Info) Description 01/25/2024 Telephone Cardiology, [facility] [address] [place] [address] Reg Kidd DO [address] [employer] [place] [address] Test Results Allergies Active Allergy Reactions Criticality Noted Date Comments Atorvastatin Muscle pain 03/13/2014 Other Allergy (See Comments) Medium 12/24/2018 General Anesthesia Other reaction(s): COMBATIVE documented as of this encounter (statuses as of 02/01/2024) Medications Medication Sig Dispensed Refills Start Date End Date Status Aspirin 81 MG Tablet Once daily 12/18/2014 Acti ve ibuprofen (EQ IBUPROFEN) 200 MG TabletIndications:[place] left-sided low back pain without sciatica,Spasm of muscle Take 2 Tabs by mouth every 6 hours as needed for Pain. 30 Tab 02/16/2017 Active acetaminophen (TYLENOL) 500 MG TabletIndications:[place] right-sided low back pain with right-sided sciatica [...] mRNA, LNP-s, No Pre serve, 2-Dose Series (Vee24) 06/30/2021,09/23/2020,09/03/2020 DTP Vaccine 10/28/2003 DTWP - Dipth/Tet/Whole [...] 01/27/2024 2:39 PM EDT Rx sent to [facility]. Schedule EP evaluation. * Telephone Encounter - Dipesh Barrera LPN - 01/25/2024 1:49 PM EDT Called patient and left Dr. Kidd's message on an identified voicemail and sent GenerationOnehart message to make aware. Awaiting call back [...] 4:00 PM EDT Cardiac Studies Cardiac Studies, [facility] [address] [facility] [place] [address] 02/23/2024 5:00 PM EDT Imaging Radiology [facility] [address] [facility] [place] [address] 06/14/2024 9:30 AM EDT Office Visit Cardiology, [facility] [address] [facility] [place] [address] Reg Kidd DO [address] [place] [address] 07/27/2024 10:00 AM EST Office Visit Pediatric Cardiology, [facility] [address] [place] [address] Larry Pablo MD [address] [place] [address] Scheduled Referrals Name Type Priority Associated Diagnoses [...] Fallot documented in this encounter Care Teams Marble Setter Relationship Specialty Start Date End Date Sofie Burgess MD [address] [place] [address] [place] [address] PCP - General 10/13/09 documented as of this encounter
--- OUTSIDE RECORDS SUMMARY | 2024-06-26 09:06 | External Medical Summary | Summary of Care ---
Author Name Unknown Organization [facility] Address [address] [place] [address] Phone [phone] Care Team Providers Care Upper Marker Name Role Phone Sofie Burgess MD Primary Care Provider + Reason for Visit * Reason Comments Acute Last couple of weeks has been waking up with hands being painful, hard to open/close, knee pain Encounter Details Date Type Department Care Team (Late st Contact Info) Description 03/01/2024 12:40 PM EDT Telemedicine General Internal Medicine [facility] [address] [place] [address] Sofie Burgess MD [address] [place] [address] Stiffness of hand joint, unspecified laterality*; Arthralgia of knee, unspecified laterality; Tick bite, unspecified site, initial encounter Allergies Active Allergy Reactions Criticality Noted Date Comments Atorvastatin Muscle pain 03/13/2014 Other Allergy (See Comments) Medium 12/24/2018 General Anesthesia Other reaction(s): COMBATIVE documented as of this encounter (statuses as of 03/01/2024) Medications Medication Sig Dispensed Refills Start Date [...] as of this encounter (statuses as of 03/01/2024) Active Problems Problem Noted Date Diagnosed Date [...] as of this encounter (statuses as of 03/01/2024) Immunizations Name Administration Dates Next Due COVID-19 mRNA, LNP-s, No Pre serve, 2-Dose Series (Fliggo) 06/30/2021,09/23/2020,09/03/2020 DTP Vaccine 10/28/2003 DTWP - Dipth/Tet/Whole [...] on file documented as of this encounter Progress Notes * Sofie Burgess MD - 03/01/2024 12:50 PM EDT Images from the original note were not included. History of Present Illness Gallo Brennan is a 58 year old male that presents for Acute (Last couple of weeks has been waking up with hands being painful, hard to open/close, knee pain ) Py has painful hand joints, knees and feels more stiffness and pain in morning for last 2-3 weeks. Pt didn't try any meds except tylenol used few times. Doesn't take any Nsaids. No hip pain or stiffness. No hx of recent tick bite. No fever, chills. Pt stopped taking statin a week ago as had jointpains. Prior to that he took 40 mg tablet for 2 weeks. Has a dog at home. Physical Exam There were no vitals filed for this visit. BP Readings from Last 3 Encounters: 02/10/24 140/74 12/09/23 138/80 10/18/23 132/78 Wt Readings from Last 3 Encounters: 02/10/24 109.8 kg (242 lb) 12/28/23 111.4 kg (245 lb 8 oz) 12/09/23 111.5 kg (245 lb 14.4 oz) BMI Readings from Last 3 Encounters: 02/10/24 31.56 kg/m 12/28/23 30.69 kg/m 12/09/23 30.74 kg/m Ht Readings from Last 3 Encounters: 02/10/24 1.865 m (6' 1.43") 12/28/23 1.905 m (6' 3") 10/18/23 1.905 m (6' 3") I have reviewed the following results: CMP Assessment and Plan Stiffness of hand joint, unspecified laterality (Primary) - CK; Future; Expected date: 03/01/2024 - ERYTHROCYTE SEDIMENTATION RATE (ESR); Future; Expected date: 03/01/2024 - CRP (INFLAMMATORY MARKER); Future; Expected date: 03/01/2024 - CBC WITH WBC DIFFERENTIAL; Future; Expected date: 03/01/2024 - RHEUMATOID FACTOR; Future; Expected date: 03/01/2024 - ANTINUCLEAR ANTIBODY (CADEN) EIA SCREEN WITH REFLEX AB QUANT; Future; Expected date: 03/01/2024 Tylenol as needed. If needed will refer to Rheumatology. Continue hydration. Arthralgia of knee, unspecified laterality - CK; Future; Expected date: 03/01/2024 - ERYTHROCYTE SEDIMENTATION RATE (ESR); Future; Expected date: 03/01/2024 - CRP (INFLAMMATORY MARKER); Future; Expected date: 03/01/2024 - CBC WITH WBC DIFFERENTIAL; Future; Expected date: 03/01/2024 - RHEUMATOID FACTOR; Future; Expected date: 03/01/2024 - ANTINUCLEAR ANTIBODY (CADEN) EIA SCREEN WITH REFLEX AB QUANT; Future; Expected date: 03/01/2024 - LYME DISEASE ANTIBODY SCREEN WITH REFLEX TO CONFIRMATION; Future; Expected date: 03/01/2024 Tick bite, unspecified site, initial encounter - LYME DISEASE ANTIBODY SCREEN WITH REFLEX TO CONFIRMATION; Future; Expected date: 03/01/2024 Wrap-Up Time: I spent a total of 20-29 minutes (exact time 25 mins) on the date of service in preparation, delivery, and documentation of the care provided to Gallo Brennan excluding any time spent in the performance of separately billed services. documented in this encounter Nursing Notes * Allison Cabral LPN - 03/01/2024 12:42 PM EDT The patient has been properly identified by confirmation of name and date of . Chief Complaint Patient presents with Acute Last couple of weeks has been waking up with hands being painful, hard to open/close, knee pain documented in this encounter Plan of Treatment Upcoming Encounters Date Type Department Care Team (Late st Contact Info) Description 04/10/2024 12:15 PM EDT Office Visit Cardiology, [facility] [address] [place] [address] [address], [address] [place] [address] 06/14/2024 9:30 AM EDT Office Visit Cardiology, [facility] [address] [place] [address] Reg Kidd, DO [address] [place] [address] Scheduled Orders Name Type Priority Associated Diagnoses Orde r Schedule CK Lab Routine Stiffness of hand joint, unspecified laterality Arthralgia of knee, unspecified laterality Expected: 03/01/2024 (Approximate), Expires: 03/01/2025 ERYTHROCYTE SEDIMENTATION RATE (ESR) Lab Routine Stiffness of hand joint, unspecified laterality Arthralgia of knee, unspecified laterality Expected: 03/01/2024 (Approximate), Expires: 03/01/2025 CRP (INFLAMMATORY MARKER) Lab Routine Stiffness of hand joint, unspecified laterality Arthralgia of knee, unspecified laterality Expected: 03/01/2024 (Approximate), Expires: 03/01/2025 CBC WITH WBC DIFFERENTIAL Lab Routine Stiffness of hand joint, unspecified laterality Arthralgia of knee, unspecified laterality Expected: 03/01/2024 (Approximate), Expires: 03/01/2025 RHEUMATOID FACTOR Lab Routine Stiffness of hand joint, unspecified laterality Arthralgia of knee, unspecified laterality Expected: 03/01/2024 (Approximate), Expires: 03/01/2025 ANTINUCLEAR ANTIBODY (CADEN) EIA SCREEN WITH REFLEX AB QUANT Lab Routine Stiffness of hand joint, unspecified laterality Arthralgia of knee, unspecified laterality Expected: 03/01/2024 (Approximate), Expires: 03/01/2025 LYME DISEASE ANTIBODY SCREEN WITH REFLEX TO CONFIRMATION Lab Routine Arthralgia of knee, unspecified laterality Tick bite, unspecified site, initial encounter Expected: 03/01/2024 (Approximate), Expires: 03/01/2025 Health Maintenance Due Date Last Done Comments [...] as of this encounter Visit Diagnoses Diagnosis Stiffness of hand joint, unspecified laterality- Primary Arthralgia of knee, unspecified laterality Tick bite, unspecified site, initial encounter documented in this encounter Care Teams Upper Marker Relationship Specialty Start Date End Date Sofie Burgess MD [facility] [place] [address] PCP - General 10/13/09 documented as of this encounter
--- OUTSIDE RECORDS SUMMARY | 2024-06-26 09:06 | External Medical Summary | Summary of Care ---
Author Name Unknown Organization [facility] Address [address] [place] [address] Phone [phone] Care Team Providers Care Director Of Strategy & Mobile Name Role Phone Sofie Burgess MD Primary Care Provider + Reason for Referral * Precert (Within 10 days (routine)) - Pending Review Specialty Diagnoses / Procedures Referred By Contac priya Referred To Contact Cardiac Studies Diagnoses Tetralogy of Fallot History of tetralogy of Fallot repair H/O ventricular tachycardia Dyslipidemia, goal LDL below 160 S/P aortic aneurysm repair Dyslipidemia Procedures PEDS ECHO, TTE CONGENITAL LIMITED Larry Pablo MD [address] [place] [address] Referral ID Status Reason Start Date Expiration Date Visits Requested Visits Authorized [id number] Pending Review Precert 02/10/2024 [id number] Reason for Visit * Reason Comments Follow Up * Evaluate & Treat - Unlimited Visits (Within 30 days (routine)) - Pending Review Specialty Diagnoses / Procedures Referred By Contact Referred To Contact Cardiovascular Medicine / Cardiology Diagnoses Tetralogy of Fallot Reg Kidd, DO [address] [place] [address] Referral ID Status Reason Start Date Expiration Date Visits Requested Visits Authorized [id number] Pending Review Specialty Services Required 12/09/2023 [id number] Encounter Details Date Type Department Care Team (Late st Contact Info) Description 02/10/2024 11:00 AM EDT Office Visit Pediatric Cardiology, [facility] [address] [place], [place] [address] Larry Pablo MD [address] [place] [address] Tetralogy of Fallot*; History of tetralogy of Fallot repair; H/O ventricular tachycardia; Dyslipidemia, goal LDL below 160; S/P aortic aneurysm repair; Dyslipidemia Allergies Active Allergy Reactions Criticality Noted Date Comments Atorvastatin Muscle pain 03/13/2014 Other Allergy (See Comments) Medium 12/24/2018 General Anesthesia Other reaction(s): COMBATIVE documented as of this encounter (statuses as of 02/10/2024) Medications Medication Sig Dispensed Refills Start Date End Date Status Aspirin 81 MG Tablet Once daily 5 Active ibuprofen (EQ IBUPROFEN) 200 MG TabletIndication s:Acute left-sided low back pain without sciatica,Spasm of muscle Take 2 Tabs by mouth every 6 hours as needed for Pain. 30 Tab 7 Active acetaminophen (TYLENOL) 500 MG TabletIndication s:Acute right-sided low back pain with right-sided sciatica Take 2 Tabs by mouth every 8 hours as needed for Pain or Fever. 100 Tab 8 Active Multiple Vitamin (MULTI-DAY) Tablet Take 1 Tab by mouth daily. Active Melatonin ER 1 MG Oral Tablet Extended ReleaseIndicatio ns:Other insomnia Taking melatonin unsure dose--chg to ER form and inc upto 10 mg if needed 1 Tablet 2 Active Mylanta Coat & Cool 1200-270-80 MG/10ML Oral Suspension (Abrahan Carb-Mag Hydrox-Simeth) Take by mouth . Activ e Fluticasone Propionate HFA 110 MCG/ACT Inhalation Aerosol (Flovent HFA) Inhale 2 Puffs by mouth in the morning and 2 Puffs before bedtime. 12 g 5 3 Active ProAir HFA 108 (90 Base) MCG/ACT Inhalation Aerosol SolutionIndicati ons:Wheezing Inhale 2 Puffs by mouth every 4 hours as needed for Wheezing. 18 g 3 Active Metoprolol Succinate ER 50 MG Oral Tablet Extended Release 24 Hour (toPROL XL)Indications:H /O ventricular tachycardia TAKE 1 TABLET BY MOUTH ONCE DAILY 90 Tablet 4 3 Active Albuterol Sulfate HFA 108 (90 Base) MCG/ACT Inhalation Aerosol SolutionIndicati ons:Acute cough,Bronchitis , complicated,Whee zing,Shortness of breath Inhale 2 Puffs by mouth every 4 hours as needed for Wheezing. 18 g 4 Active Cetirizine HCl 10 MG Oral Capsule Take 1 Capsule by mouth in the morning. Active Omeprazole 40 MG Oral Capsule Delayed Release (PriLOSEC) TAKE 1 CAPSULE BY MOUTH EVERY MORNING 1 HOURS BEFORE FIRST MEAL OF THE DAY. 90 Capsule 3 4 Active Additional Information Patient not taking.Reported on 02/10/2024 Metoprolol Succinate ER 25 MG Oral Tablet Extended Release 24 Hour (Toprol XL) Take 1 Tablet by mouth at bedtime. 34 Tablet 6 4 Active Lisinopril 10 MG Oral Tablet (Prinivil) Take 1 Tablet by mouth in the morning. 30 Tablet 5 4 Active Pravastatin Sodium 40 MG Oral Tablet (Pravachol)Indic ations:Dyslipide isabell Take 1 Tablet by mouth every evening. 100 Tablet 3 4 Active Pravastatin Sodium 40 MG Oral Tablet (Pravachol)Indic ations:Dyslipide isabell Take 1 Tablet by mouth every evening. 100 Tablet 3 4 02/10/20 24 Discontinued(Ref ill) Lisinopril 5 MG Oral Tablet (Prinivil)Indica tions:PVC (premature ventricular contraction),Pre mature atrial complexes,S/P ascending aortic aneurysm repair TAKE 1 TABLET BY MOUTH ONCE DAILY 90 Tablet 3 4 02/10/20 24 Discontinued documented as of this encounter (statuses as of 02/10/2024) Active Problems Problem Noted Date Diagnosed Date [...] as of this encounter (statuses as of 02/10/2024) Immunizations Name Administration Dates Next Due COVID-19 mRNA, LNP-s, No Pre serve, 2-Dose Series (Pfizer) 06/30/2021,09/23/2020,09/03/2020 DTP Vaccine 10/28/2003 DTWP - Dipth/Tet/Whole [...] Sign Reading Time Taken Comments Blood Pressure 140/74 02/10/2024 10:59 AM EDT Pulse 56 02/10/2024 10:59 AM EDT Temperature - - Respiratory Rate 18 02/10/2024 10:59 AM EDT Oxygen Saturation 97% 02/10/2024 10:59 AM EDT Inhaled Oxygen Concentration - - Weight 109.8 kg (242 lb) 02/10/2024 10:59 AM EDT Height 186.5 cm (6' 1.43") 02/10/2024 10:59 AM E DT Body Mass Index 31.56 02/10/2024 10:59 AM EDT documented in this encounter Progress Notes * Larry Pablo MD - 02/10/2024 11:00 AM EDT [facility] Adult Congenital Cardiology Office Note 02/08/2024 Gallo Brennan Date of : 1965 Age: [age] year old Date of visit: 02/08/2024 Primary Care Provider: Sofie Burgess MD Referring provider if different: Historian: patient I had the pleasure of seeing Gallo today. Known diagnoses: ICD-10-CM 1. Tetralogy of Fallot Q21.3 2. History of tetralogy of Fallot repair Z87.74 3. H/O ventricular tachycardia Z86.79 4. Dyslipidemia, goal LDL below 160 E78.5 5. S/P aortic aneurysm repair Z98.890 Z86.79 Overall, he says he is doing pretty well. He does not have any chest pain. He might feel occasionalfluttering in his chest but nothing severe. He has not particularly out of breath. He has hyperlipidemia but he says he stopped the Pravachol because of severe joint aches. His metoprolol was increased recently. He has not sure if that was due to the findings of his monitor or his blood pressure. He has not been seen by this service before. Dr. Kidd has been following him for quite a long time however. He states that years ago when his defibrillator battery was depleted, he asked for it to be removedcompletely rather than replaced. He has not been shocked since that time but he did get a shock onetime playing baseball. The defibrillator was inserted in the 1st place due to of ventricular tachycardia or ventricular fibrillation arrest. Dr. Kidd recommended a referral to electrophysiology with the idea of reimplantation an ICD. That visit has been scheduled. Past History Past Medical History: Diagnosis Date Automatic implantable cardiac defibrillator in situ now removed(04/23) Cardiac disease 01/2005 aortic valve repaired and aortic root replaced foor an aneurysm. Dyslipidemia, goal LDL below 160 Hypercholesterolemia Syncope Tetralogy of Fallot as correct 1971 Past Surgical History: Procedure Laterality Date CARDIAC SURGERY PROCEDURE NEC 07/15/2002 AICD COLONOSCOPY W/ BIOPSY (RECTUM) 10/13/2012 COLONOSCOPY, DIAGNOSTIC (RECTUM) N/A 10/14/2022 [facility], Colonoscopy, normal scope /biopsies normal / COMPLETE REPAIR TETRALOGY OF FALLOT 08/15/1971 EGD, FLEXIBLE, DIAGNOSTIC N/A 10/13/2022 [facility], EGD, Mild Ring of GE junction at 41 cm, otherwise normal / normal biopsies. EGD, FLEXIBLE, DIAGNOSTIC 03/30/2023 [facility] - Schatzki ring / [facility] EGD, FLEXIBLE, W/BIOPSY 10/13/2012 inflammation at end of esophagus INFORMATION 08/15/2007 Aortic root aneurysm repair LAPAROSCOPY; CHOLECYSTECTOMY 11/09/2021 done at [facility] by Dr Saman Blunt LAPOROSCOPIC HERNIA REPAIR EDU 08/15/1970 Right groin MISCELLANEOUS ORDER ([facility] ONLY) 04/15/2009 AICD removed REPAIR BICEPS TENDON RUPTURE 08/15/2005 Left distal biceps tendon repair REPAIR RUPTURED ROTATOR CUFF, ACUTE 08/15/1998 Right shoulder Medications Current Outpatient Medications Medication Sig Dispense Refill [...] as needed for Wheezing. 18 g 0 Metoprolol Succinate ER 50 MG Oral Tablet Extended Release 24 Hour (toPROL XL) TAKE 1 TABLET BY MOUTH ONCE DAILY 90 Tablet 4 Albuterol Sulfate HFA 108 (90 Base) MCG/ACT [...] MEAL OF THE DAY. 90 Capsule 3 Pravastatin Sodium 40 MG Oral Tablet (Pravachol) Take 1 Tablet by mouth every evening. 100 Tablet 3 Lisinopril 5 MG Oral Tablet (Prinivil) TAKE 1 TABLET BY MOUTH ONCE DAILY 90 Tablet 3 Metoprolol Succinate ER 25 MG Oral Tablet Extended Release 24 Hour (Toprol XL) Take 1 Tablet by mouth at bedtime. 34 Tablet 6 No current facility-administered medications for this visit. Family History Family History Problem Relation Name Age of Onset Heart Disorder Father Diabetes Mother Heart Disorder Mother Social History Lives with family Allergies Review of patient's allergies indicates: Allergen Reactions Other Allergy (See Comments) General Anesthesia Other reaction(s): COMBATIVE Atorvastatin Muscle pain Review of Systems Otherwise negative unless stated above Physical Examination BP 140/74 (BP Site: Left Arm, BP Position: Sitting, BP Cuff Size: Regular) | Pulse 56 | Resp 18 | Ht 1.865 m (6' 1.43") | Wt 109.8 kg (242 lb) | SpO2 97% | BMI 31.56 kg/m | BSA 2.39 m General: well developed, overweight, no acute distress, cooperative, normal appearing, and acyanotic Head: atraumatic and normocephalic Neck: supple and no masses, JVD: none Lungs: clear to auscultation and good air movement bilaterally Chest: Scars: sternotomy scar. Deformity: none Abdomen: abdomen soft, non-tender, no abnormal masses, no hepatosplenomegaly Extremities: no edema, no clubbing, no cyanosis Pulses: normal upper and lower extremity pulses Skin: warm, no rashes, and no skin lesions Cardiac Exam Palpation: Precordium: normal impulses, non-tender, and no thrill Auscultation: Quality of auscultation: adequate Rhythm: regular S1: normal intensity, S2: widely split, Clicks: none, Gallops: none, Rub: None Systolic Murmurs: systolic ejection murmur I out of , medium pitched at upper left sternal borderand mid left sternal border Diastolic murmurs: none Continuous murmur: none My physical examination did not reveal any evidence of abuse. Testing Tests reviewed: 2022 echo Interpretation Summary The examination is adequate to evaluate the referral indication. The qualitative LV ejection fraction is 60-64% [...] patient is S/P Tetrology of Fallot repair. Recent [place] Preliminary Findings Prepared by Nolan Reddy, SAL 12/27/23 Patient had a min HR of [...] were present. Isolated VEs were rare (<1.0%, 13101), VE Couplets were rare (<1.0%, 106), and VE Triplets were rare (<1.0%, 2). Ventricular Bigeminy and Trigeminy were present. No patient marker or diary entries were recorded Impression: Sinus rhythm with first-degree AV block, right bundle-branch block average rate 72 beats per minute with 3 runs of ventricular tachycardia, longest 8 beats in duration 2021 CT chest FINDINGS: Tubes, catheters and devices: There are sternal wires consistent with previous sternotomy incision. There is a pacemaker in the left upper chest. The leads appear intact. Trachea: The trachea and airways appear normal. Lungs: There are no areas of dense parenchymal consolidation. Pleural spaces: No pleural effusion. Heart: Cardiac valvular surgery has been performed. No pericardial effusion. No significant coronary arterial calcifications. Lymph nodes: There is no lymphadenopathy. Vasculature: Unremarkable. No aortic aneurysm. Bones/joints: Unremarkable. No acute fracture. Soft tissues: Unremarkable. IMPRESSION IMPRESSION: 1. Findings of previous cardiac surgery with no evidence of pericardial effusion or aneurysm. 2. No findings of pneumonia or pleural effusion. Tests done today: Echo RA and RV normal No significant pulmonary valve stenosis Mild pulmonary valve insufficiency LV septum hypokinetic LV diastolic dysfunction Ascending aorta is dilated 4.1 cm Mild TR predicts normal RVP Wires in right heart Impression ICD-10-CM 1. Tetralogy of Fallot Q21.3 2. History of tetralogy of Fallot repair Z87.74 3. H/O ventricular tachycardia Z86.79 4. Dyslipidemia, goal LDL below 160 E78.5 5. S/P aortic aneurysm repair Z98.890 Z86.79 From Tetralogy of Fallot repair standpoint this looks terrific. I have no particular concerns aboutthe anatomy and hemodynamic repair I am concerned about the following: H/o VF arrest, ICD removed, current NSVT. I think he's high risk and I concur with replacement of the AICD Hyperlipidemia, probably FAMILIAL HYPERLIPIDEMIA, currently untreated, FHx of ND/SCD. He agrees to restart the statin and follow up with Dr. Arroyo; if achieved adequate lowering, stay on that. If not then consider Zetia and/or PCSK9i. If does not tolerate consider PCSK9i. HTN; high for the last year, yet another risk factor. Increase lisinopril and follow up with Dr. Arroyo My recommendations are as follows: Tests (ordered) None Treatment As above Follow up visits, if any 2 years Testing to be done prior to next visit: None Testing to be done at the next visit: EKG Limited Echocardiogram Other recommendations Endocarditis risk: There is an increased lifetime risk of endocarditis; however, AHA found no benefit of prophylactic antibiotics for patients with this lesion. Prophylaxis is not recommended. Attention to good dental hygiene is strongly recommended as this may be the best prevention. This was discussed with those present today. Thank you sincerely for referring Gallo to us. Pleasecall me if you have any questions at [phone]. If I can help you further, please don't hesitateto contact me. I spent a total of Greater than 55 mins (exact time 65 mins) on the date of service in preparation,delivery, and documentation of the care provided to Gallo Brennan excluding any time spent in the performance of separately billed services. Larry Pablo MD 02/08/2024 10:25 PM documented in this encounter Nursing Notes * Elsa Cabrera LPN - 02/10/2024 11:01 AM EDT Here for a follow up. documented in this encounter Plan of Treatment Upcoming Encounters Date Type Department Care Team (Late st Contact Info) Description 02/23/2024 4:00 PM EDT Cardiac Studies Cardiac Studies, [facility] [address] [facility] [place] [address] 02/23/2024 5:00 PM EDT Imaging Radiology [facility] 1st Floor, [place] [address] [facility] [place] [address] 04/10/2024 12:15 PM EDT Office Visit Cardiology, [facility] [address] [facility] [place] [address] Loan Taylor, DO [address] [facility] [place] [address] 06/14/2024 9:30 AM EDT Office Visit Cardiology, [facility] [address] [facility] [place] [address] Reg Kidd, DO [address] [facility] [place] [address] Health Maintenance Due Date Last Done Comments [...] Procedure Name Priority Date/Time Associated Diagnosis Comments [place] F-UP/LIMITED TTHRC ECHO CONGENITAL CAR ANOMALY Routine 02/10/2024 11:10 AM EDT Tetralogy of Fallot History of tetralogy of Fallot repair H/O ventricular tachycardia Dyslipidemia, goal LDL below 160 S/P aortic aneurysm repair Dyslipidemia documented in this encounter Results * PEDS ECHO, TTE CONGENITAL LIMITED (02/10/2024 11:10 AM EDT) 02/10/2024 11:1 0 AM EDT Larry Pablo MD [facility] documented in this encounter Visit Diagnoses Diagnosis Tetralogy of Fallot- Primary History of tetralogy of Fallot repair Personal history of surgery to heart and great vessels, presenting hazards to health H/O ventricular tachycardia Personal history of other diseases of circulatory system Dyslipidemia, goal LDL below 160 Other and unspecified hyperlipidemia S/P aortic aneurysm repair Other postprocedural status Dyslipidemia Other and unspecified hyperlipidemia documented in this encounter Care Teams Director Of Strategy & Mobile Relationship Specialty Start Date End Date Sofie Burgess MD [address] [facility] [place] [address] PCP - General 10/13/09 documented as of this encounter
--- OUTSIDE RECORDS SUMMARY | 2024-06-26 09:07 | External Medical Summary | Summary of Care ---
Author Name Unknown Organization [facility] Address [address] [place] [address] Phone [phone] Care Team Providers Care Digital Engineer Name Role Phone Sofie Burgess MD Primary Care Provider + Reason for Referral * Evaluate & Treat - Unlimited Visits (Within 30 days (routine)) - Pending Review Specialty Diagnoses / Procedures Referred By Contact Referred To Contact Cardiac Electrophysiology / Cardiology Diagnoses Tetralogy of Fallot NSVT (nonsustained ventricular tachycardia) ([facility]) Reg Kidd DO [address] [place] [address] Referral ID Status Reason Start Date Expiration Date Visits Requested Visits Authorized [id number] Pending Review Specialty Services Required 01/27/[phone] Question Answer Referral Priority Within 30 days (routine) Where should this appointment be scheduled? [facility] nurse will coordinate with provider scheduling appt for pt Reason for Visit * Reason Onset Date Comments Test Results 01/25/2024 Encounter Details Date Type Department Care Team (Late st Contact Info) Description 01/25/2024 Telephone Cardiology, [facility] [address] [place] [address] Reg Kidd DO [address] [place] [address] Test Results Allergies Active Allergy Reactions Criticality Noted Date Comments Atorvastatin Muscle pain 03/13/2014 Other Allergy (See Comments) Medium 12/24/2018 General Anesthesia Other reaction(s): COMBATIVE documented as of this encounter (statuses as of 01/27/2024) Medications Medication Sig Dispensed Refills Start Date End Date Status Aspirin 81 MG Tablet Once daily 12/18/2014 Acti ve ibuprofen (EQ IBUPROFEN) 200 MG TabletIndications:Ac twenty-nine palms left-sided low back pain without sciatica,Spasm of muscle Take 2 Tabs by mouth every 6 hours as needed for Pain. 30 Tab 02/16/2017 Active acetaminophen (TYLENOL) 500 MG TabletIndications:Ac twenty-nine palms right-sided low back pain with right-sided sciatica [...] as of this encounter (statuses as of 01/27/2024) Active Problems Problem Noted Date Diagnosed Date Chronic rhinitis 05/20/2020 Hypertrophy of both inferior nasal turbinates Recurrent acute sinusitis 05/20/2020 Deviated nasal septum 05/20/2020 Anterolisthesis 02/16/2017 H/O ventricular tachycardia 07/25/2013 S/P aortic aneurysm repair 05/16/2012 Syncope History of tetralogy of Fallot repair Overview: as infant correct 1972 Dyslipidemia, goal LDL below 160 Overview: Hypercholesterolemia documented as of this encounter (statuses as of 01/27/2024) Resolved Problems Problem Noted Date Diagnosed Date Resolved Date Automatic implantable cardia c defibrillator in situ 07/25/2013 documented as of this encounter (statuses as of 01/27/2024) Immunizations Name Administration Dates Next Due COVID-19 mRNA, LNP-s, No Pre serve, 2-Dose Series (Smarty Ring) 06/30/2021,09/23/2020,09/03/2020 DTP Vaccine 10/28/2003 DTWP - Dipth/Tet/Whole [...] in the Last Year Never true 05/08/2020 Sex and Gender Information Value Date Recorded Sex Assigned at Male 12/18/2018 9:08 AM EDT Gender Identity Male 12/18/2018 9:08 AM EDT Sexual Orientation Straight 12/18/2018 9: 08 AM EDT Job Start Date Occupation Industry Not on file Not on file Not on file documented as of this encounter Miscellaneous Notes * Telephone Encounter - Sheeba Darnell LPN - 01/27/2024 3:[address]T Will ask Dr. Taylor if congenital cardiology visit is necessary first or if pt can be seen by EP. Referral placed, clinic nurse will handle scheduling * Telephone Encounter - Reg Kidd DO - 01/27/2024 2:39 PM EDT Rx sent to [facility]. Schedule EP evaluation. * Telephone Encounter - Dipesh Barrera LPN - 01/25/2024 1:49 PM EDT Called patient and left Dr. Kidd's message on an identified voicemail and sent MyChart message to make aware. Awaiting call back or MyChart reply to pend orders. ----- Message from Reg Kidd DO sent at 01/24/2024 9:00 PM EDT ----- Gui demonstrates 3 runs of NSVT and moderate PVC burden. Increase toprol XL to 50mg in AM and 25mg in evening. EP consultation re: NSVT, h/o Tetrology of fallot repair, h/o ICD removed 2009. documented in this encounter Plan of Treatment Upcoming Encounters Date Type Department Care Team (Late st Contact Info) Description 02/23/2024 4:00 PM EDT Cardiac Studies Cardiac Studies, [address] [place] [address] 02/23/2024 5:00 PM EDT Imaging Radiology [facility] 1st Floor, [address] [place] [address] 06/14/2024 9:30 AM EDT Office Visit Cardiology, [address] [place] [address] Reg Kidd DO [address] [facility] [address] 07/27/2024 10:00 AM EST Office Visit Pediatric Cardiology, [address] [place] [address] Larry Pablo MD [address] [place] [address] Scheduled Referrals Name Type Priority Associated Diagnoses [...] Fallot documented in this encounter Care Teams Digital Engineer Relationship Specialty Start Date End Date Sofie Burgess MD [address] [place] [address] [place] [address] PCP - General 10/13/09 documented as of this encounter
--- OUTSIDE RECORDS SUMMARY | 2024-06-26 09:07 | External Medical Summary | Summary of Care ---
Author Name Unknown Organization [facility] Address [address] [place] [address] Phone [phone] Care Team Providers Care Integrity Assessor Name Role Phone Sofie Burgess MD Primary Care Provider + Reason for Referral * Evaluate & Treat - Unlimited Visits (Within 30 days (routine)) - Pending Review Specialty Diagnoses / Procedures Referred By Contact Referred To Contact Cardiac Electrophysiology / Cardiology Diagnoses Tetralogy of Fallot NSVT (nonsustained ventricular tachycardia) ([facility]) Reg Kidd DO [address] [place] [address] Referral ID Status Reason Start Date Expiration Date Visits Requested Visits Authorized [id number] Pending Review Specialty Services Required 01/27/[phone] Question Answer Referral Priority Within 30 days (routine) Where should this appointment be scheduled? [facility] nurse will coordinate with provider scheduling appt for pt Reason for Visit * Reason Onset Date Comments Test Results 01/25/2024 Encounter Details Date Type Department Care Team (Late st Contact Info) Description 01/25/2024 Telephone Cardiology, [facility] [address] [place] [address] Reg Kidd DO [address] [place] [address] Test Results Allergies Active Allergy Reactions Criticality Noted Date Comments Atorvastatin Muscle pain 03/13/2014 Other Allergy (See Comments) Medium 12/24/2018 General Anesthesia Other reaction(s): COMBATIVE documented as of this encounter (statuses as of 01/31/2024) Medications Medication Sig Dispensed Refills Start Date End Date Status Aspirin 81 MG Tablet Once daily 12/18/2014 Acti ve ibuprofen (EQ IBUPROFEN) 200 MG TabletIndications:Ac [place] left-sided low back pain without sciatica,Spasm of muscle Take 2 Tabs by mouth every 6 hours as needed for Pain. 30 Tab 02/16/2017 Active acetaminophen (TYLENOL) 500 MG TabletIndications:Ac [place] right-sided low back pain with right-sided sciatica [...] as of this encounter (statuses as of 01/31/2024) Active Problems Problem Noted Date Diagnosed Date Chronic rhinitis 05/20/2020 Hypertrophy of both inferior nasal turbinates Recurrent acute sinusitis 05/20/2020 Deviated nasal septum 05/20/2020 Anterolisthesis 02/16/2017 H/O ventricular tachycardia 07/25/2013 S/P aortic aneurysm repair 05/16/2012 Syncope History of tetralogy of Fallot repair Overview: as infant correct 1971 Dyslipidemia, goal LDL below 160 Overview: Hypercholesterolemia documented as of this encounter (statuses as of 01/31/2024) Resolved Problems Problem Noted Date Diagnosed Date Resolved Date Automatic implantable cardia c defibrillator in situ 07/25/2013 documented as of this encounter (statuses as of 01/31/2024) Immunizations Name Administration Dates Next Due COVID-19 mRNA, LNP-s, No Pre serve, 2-Dose Series ([employer]) 06/30/2021,09/23/2020,09/03/2020 DTP Vaccine 10/28/2003 DTWP - Dipth/Tet/Whole [...] 01/27/2024 2:39 PM EDT Rx sent to [facility]. Schedule EP evaluation. * Telephone [...] 4:00 PM EDT Cardiac Studies Cardiac Studies, [address] [place] [address] 02/23/2024 5:00 PM EDT Imaging Radiology [facility] 1st Floor, [address] [place] [address] 06/14/2024 9:30 AM EDT Office Visit Cardiology, [address] [place] [address] Reg Kidd DO [address] [place] [address] 07/27/2024 10:00 AM EST Office Visit Pediatric Cardiology, [address] [place] [address] Larry Pablo MD [address] [place] [address] Scheduled Referrals Name Type Priority Associated Diagnoses [...] Fallot documented in this encounter Care Teams Integrity Assessor Relationship Specialty Start Date End Date Sofie Burgess MD [address] [place] [address] [place] [address] PCP - General 10/13/09 documented as of this encounter
--- OUTSIDE RECORDS SUMMARY | 2024-06-26 09:07 | External Medical Summary | Summary of Care ---
Author Name Unknown Organization [facility] Address [address] [place] [address] Phone [phone] Care Team Providers Care Firer Low Pressure Name Role Phone Sofie Burgess MD Primary Care Provider + Reason for Referral * Evaluate & Treat - Unlimited Visits (Within 30 days (routine)) - Pending Review Specialty Diagnoses / Procedures Referred By Contact Referred To Contact Cardiac Electrophysiology / Cardiology Diagnoses Tetralogy of Fallot NSVT (nonsustained ventricular tachycardia) ([facility]) Reg Kidd DO [address] [place] [address] Referral ID Status Reason Start Date Expiration Date Visits Requested Visits Authorized [id number] Pending Review Specialty Services Required 01/27/[phone] Question Answer Referral Priority Within 30 days (routine) Where should this appointment be scheduled? [facility] nurse will coordinate with provider scheduling appt for pt Reason for Visit * Reason Onset Date Comments Test Results 01/25/2024 Encounter Details Date Type Department Care Team (Late st Contact Info) Description 01/25/2024 Telephone Cardiology, [facility] [address] [place] [address] Reg Kidd DO [address] [place] [address] Test Results Allergies Active Allergy Reactions Criticality Noted Date Comments Atorvastatin Muscle pain 03/13/2014 Other Allergy (See Comments) Medium 12/24/2018 General Anesthesia Other reaction(s): COMBATIVE documented as of this encounter (statuses as of 01/31/2024) Medications Medication Sig Dispensed Refills Start Date End Date Status Aspirin 81 MG Tablet Once daily 12/18/2014 Acti ve ibuprofen (EQ IBUPROFEN) 200 MG TabletIndications:Ac [place] left-sided low back pain without sciatica,Spasm of muscle Take 2 Tabs by mouth every 6 hours as needed for Pain. 30 Tab 02/16/2017 Active acetaminophen (TYLENOL) 500 MG TabletIndications:Ac [place] right-sided low back pain with right-sided sciatica [...] mRNA, LNP-s, No Pre serve, 2-Dose Series ([employer]at[employer]) 06/30/2021,09/23/2020,09/03/2020 DTP Vaccine 10/28/2003 DTWP - Dipth/Tet/Whole [...] 01/27/2024 2:39 PM EDT Rx sent to [facility]. Schedule EP evaluation. * Telephone Encounter - Dipesh Barrera LPN - 01/25/2024 1:49 PM EDT Called patient and left Dr. Kidd's message on an identified voicemail and sent MyChart message to make aware. Awaiting call back or MyChart reply to pend orders. ----- Message from Reg Kidd DO sent at 01/24/2024 9:00 PM EDT ----- Fidencioo demonstrates 3 runs of NSVT and moderate PVC burden. Increase toprol XL to 50mg in AM and 25mg in evening. EP consultation re: NSVT, h/o Tetrology of fallot repair, h/o ICD removed 2009. documented in this encounter Plan of Treatment Upcoming Encounters Date Type Department Care Team (Late st Contact Info) Description 02/23/2024 4:00 PM EDT Cardiac Studies Cardiac Studies, [address] [place] [address] 02/23/2024 5:00 PM EDT Imaging Radiology [facility] 1st Floor, [address] [address] 06/14/2024 9:30 AM EDT Office Visit Cardiology, [address] [place] [address] Reg Kidd DO 132 [facility] [place] [address] 07/27/2024 10:00 AM EST Office Visit Pediatric Cardiology, [address] [place] [address] Larry Pablo MD [address] [place] [address] Scheduled Referrals Name Type Priority Associated Diagnoses [...] Fallot documented in this encounter Care Teams Firer Low Pressure Relationship Specialty Start Date End Date Sofie Burgess MD [address] [place] [address], [place] [address] PCP - General 10/13/09 documented as of this encounter
--- OUTSIDE RECORDS SUMMARY | 2024-06-26 09:07 | External Medical Summary | Summary of Care ---
Author Name Unknown Organization [facility] Address [address] [place] [address] Phone [phone] Care Team Providers Care Insurance Claims Processor Name Role Phone Sofie Burgess MD Primary Care Provider + Reason for Visit * Reason Onset Date Comments Advice 10/12/2023 No available nydia ointments, for acute visit Encounter Details Date Type Department Care Team (Late st Contact Info) Description 10/12/2023 Telephone General Internal Medicine [facility] [address] [facility] [place] [address] Sofie Burgess MD 200 [facility] [place] [address] Advice (No available appointments, for acu... Allergies Active Allergy Reactions Criticality Noted Date Comments Atorvastatin Muscle pain 03/13/2014 Other Allergy (See Comments) Medium 12/24/2018 General Anesthesia Other reaction(s): COMBATIVE documented as of this encounter (statuses as of 01/11/2024) Medications Medication Sig Dispensed Refills Start Date [...] (Abrahan Carb-Mag Hydrox-Simeth) Take by mouth . Active Fluticasone Propionate HFA 110 MCG/ACT Inhalation Aerosol [...] ONCE DAILY 90 Tablet 4 12/29/2022 Active Omeprazole 40 MG Oral Capsule Delayed Release (PriLOSEC) Take 1 Capsule by mouth in the morning. 1 hour before the first meal of the day. 90 Capsule 3 10/15/2022 12/13/19 24 Discontinued Metoclopramide HCl 10 MG Oral Tablet (Reglan) One tab up to 3x/day if needed for after meal fullness/bloat ing 120 Tablet 2 12/20/2022 11/14/19 24 Discontinued(Med ication List Clean Up) hydrOXYzine HCl 25 MG Oral TabletIndication s:SAVANAH (generalized anxiety disorder) Take 1 Tablet by mouth 3 times a day as needed for Anxiety. 60 Tablet 2 01/02/2023 12/09/19 24 Discontinued(Pat ient preference/disco ntinuation) Lisinopril 5 MG Oral Tablet (Prinivil)Indica tions:PVC (premature ventricular contraction),Pre mature atrial complexes,S/P ascending aortic aneurysm repair TAKE 1 TABLET BY MOUTH ONCE DAILY 90 Tablet 09/28/2023 12/27/19 24 Discontinued documented as of this encounter (statuses as of 01/11/2024) Active Problems Problem Noted Date Diagnosed Date Chronic rhinitis 05/20/2020 Hypertrophy of both inferior nasal turbinates Recurrent acute sinusitis 05/20/2020 Deviated nasal septum 05/20/2020 Anterolisthesis 02/16/2017 H/O ventricular tachycardia 07/25/2013 S/P aortic aneurysm repair 05/16/2012 Syncope History of tetralogy of Fallot repair Overview: as infant correct 1971 Dyslipidemia, goal LDL below 160 Overview: Hypercholesterolemia documented as of this encounter (statuses as of 01/11/2024) Resolved Problems Problem Noted Date Diagnosed Date Resolved Date Automatic implantable cardia c defibrillator in situ 07/25/2013 documented as of this encounter (statuses as of 01/11/2024) Immunizations Name Administration Dates Next Due COVID-19 mRNA, LNP-s, No Pre serve, 2-Dose Series ([employer]) 06/30/2021,09/23/2020,09/03/2020 DTP Vaccine 10/28/2003 DTWP - Dipth/Tet/Whole [...] encounter Miscellaneous Notes * Telephone Encounter - Rosie Meza OSA - 10/12/2023 6:29 PM EST No Appointments Available Patient declined appointments?: No What Visit Type is needed? Acute If Acute Visit Type is needed, were surrounding clinics offered to patient (Yes/No)? N/A Was patient offered appointments with other available providers (Yes/No)? Yes See Call Details? (Yes or No): No Pt has ringing in ears for several weeks. No headaches. No fevers. Please call pt at [phone] documented in this encounter Plan of Treatment Upcoming Encounters Date Type Department Care Team (Late st Contact Info) Description 02/23/2024 4:00 PM EDT Cardiac Studies Cardiac Studies, [address] [place] [address] 02/23/2024 5:00 PM EDT Imaging Radiology [facility] 1st Floor, [address] [place] [address] 06/14/2024 9:30 AM EDT Office Visit Cardiology, [address] [place] [address] Reg Kidd DO 132 [facility] [place] [address] 07/27/2024 10:00 AM EST Office Visit Pediatric Cardiology, [address] [place] [address] Larry Pablo MD [address] [place] [address] Health Maintenance Due Date Last Done Comments [...] filedocumented as of this encounter Care Teams Insurance Claims Processor Relationship Specialty Start Date End Date Sofie Burgses MD [address] [place], [place] [address] PCP - General 10/13/09 documented as of this encounter
[2024-06-26] MEDS: PRAVASTATIN SOD 40 MG TAB PO SCH (10:54)
--- NOTE | 2024-06-26 14:07 | Cardiology Consultation ---
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 ICD was then explanted in 2008 per patient request and due to 1 inappropriate shock. 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 Recently patient has been having increased palpitations. he had outpatient ZIO which demonstrated several non sustained episodes of VT. He met with EP and it was decided to proceed with re-implantation of his ICD given risk factors for SCD. This was originally scheduled for May but then moved (per patient request) to Jul. In the meantime, patient was admitted last night for tachypalpitations. Etiology uncertain as symptoms had resolved upon presentation to the ER No arrhythmias noted overnight. HS troponin negative. Labs and electrolytes WNL. BP controlled Continue metoprolol, lisinopril and ASA. Case discussed with EP and Dr. Morris. Patient will have ICD re-implanted tomorrow while admitted at [facility]. Dr. Taylor aware. NPO after midnight. Maintain on telemetry. Case discussed with Dr. Morris I spent a total of 50 minutes on the date of service in preparation, delivery, and documentation of the care provided to this patient, excluding any time spent in the performance of separately billed services. Roxana Mix PA-C Department of Cardiology, [facility] This chart was completed in part utilizing Speech Voice Recognition Software. Grammatical errors, random word insertions, pronoun errors, and incomplete sentences are an occasional consequence of this system due to software limitatio ns, ambient noise, and hardware issues. Any formal questions or concerns about the content, text, or information contained within the body of this dictation should be directly addressed to the provider for clarification. Supervising Physician Co-Signing Physician Notes Patient seen and examined on 06/26/2024 in the emergency room Full assessment and plan as well outlined above. Care and management discussed in detail with advanced provider and personally endorsed History of Present Illness Attending Physician: Arnoldo Preston MD History of Present Illness Patient is a 58 year old male who presented to [facility] in the early hours of the morning for complaints of tachypalpitations, awakening him from sleep associated with diaphoresis, SOB and mild dizziness. No chest pain. Symptoms lasted about 10-20 minutes. By the time he arrived in the ER, symptoms had resolved EKG demonstrated NSR, without acute changes. HS troponin negative since admission. No arrhythmias on telemetry since admission. No other recent episodes of palpitations or tachypalpitations. Patient is known to Dr. Kidd and Dr. Taylor. Complicated history as below. He was to have ICD re-implanted in May due to paroxysmal VT on recent ZIO but patient called and delayed procedure, preferring to wait until July. Now scheduled for 07/31. At time of consult, patient feeling well and denies acute complaints. No recurrent palpitations or tachypalpitations this morning. He denies dizziness, syncope or near syncope. No chest pain or dyspnea. taking meds as prescribed. No recent illnesses, fevers, chills. 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 and hemiarch replacement 01/2008 HTN HLD Allergies Allergy/AdvReac Type Severity Reaction Status Date / Time GENERAL ANESTHESIA AdvReac Severe COMBATIVE Uncoded 03/30/23 09:23 Home Medications Medication Instructions Recorded Confirmed Type metoprolol succinate 50 mg 50 mg PO QAM 12/24/18 06/26/24 History tablet,extended release 24 hr (Toprol XL) multivitamin 1 tab PO QAM 12/24/18 06/26/24 History aspirin 81 mg tablet,delayed 81 mg PO QAM 05/07/21 06/26/24 History release lisinopril 10 mg tablet 10 mg PO QAM 06/26/24 06/26/24 History metoprolol succinate 25 mg 25 mg PO QPM 06/26/24 06/26/24 History tablet,extended release 24 hr pravastatin 40 mg tablet 40 mg PO QAM 06/26/24 06/26/24 History Patient History Medical History (Updated 06/26/24 @ 14:12 by Roxana Mix PA-C) History of esophageal dilatation Abdominal pain reason for procedure Abdominal bloating reason for procedure Gastroparesis History of COVID-19 July 06, 2022 (tested positive, home test) -> flu like symptoms; fever, aches, fatigue. since having covid-19 patient reports abdominal pain and cramping/bloating & severe heartburn at times. denies any bleeding, no sob or chest pain at this time. Suspected sleep apnea per [facility] sleep disorder clinic, home sleep apnea study last year -- no machine. History of ventricular tachycardia s/p ICD removal (leads still in place) by patient request History of pacemaker s/p ICD removal. Placed in 2001 for syncope, removed 2008 by pt request History of blood transfusion age 6 y/o Anxiety Elevated cholesterol "BORDERLINE" Hypertension History of placement of internal cardiac defibrillator S/P removal, per patient request for inappropriate firing Surgical History (Updated 06/26/24 @ 14:14 by Roxana Mix PA-C) History of esophagogastroduodenoscopy (EGD) History of cholecystectomy History of implantable cardiac defibrillator (ICD) s/p removal 2008. Placed in 2001 D/T SYNCOPE per patient request for i nappropriate firing History of anesthesia reaction BECOME COMBATIVE>WITH GENERAL ANESTHESIA H/O inguinal hernia repair H/O hand surgery FINGER TENDON REPAIR History of colonoscopy History of tooth extraction History of cardiac cath MULTIPE History of open heart surgery PATCH IMPLANTED TO CORRECT VSD + RESECTED TISSUE PULMONIC ARTERY *AGE 6 [facility] Status post aortic aneurysm repair s/p aortic valve repair and aortic root replacement with ascending aortic and hemiarch replacement 2007 ([facility]) History of tetralogy of Fallot repair AGE 6 Family History Father Sudden , Onset Age: 60 Cardiomyopathy Mother Diabetes Aunt Sudden , Onset Age: 45 Other No family history of adverse response to anesthesia Social History Smoking Status: Never smoker Second Hand Exposure: No; Do You Dip or Chew Tobacco: No; Tobacco Cessation Education Requested by Patient: No Hx Alcohol Use: Yes Alcohol type: beer and wine Hx Substance Use: No Preferred Language: Monegasque Communication Ability: Effective Visual Impairment: No Limitations Gimp Tacker Required: No Beliefs That Will Affect Care: None marital status: Current Living Situation: Spouse How many Children do You have: 2 Other Information That Helps Us Care for You: No Feels Safe at Home: Yes Assistive Devices: Glasses Review of Systems Review of Systems: All systems reviewed & are unremarkable except as noted in HPI & below Physical Exam Constitutional: WD/WN, vitals as above well developed; no acute distress Neck: trachea midline, no thyromegaly normal visual inspection Respiratory: normal respiratory effort Auscultation: lungs clear to auscultation bilaterally Cardiovascular: Rate/Rhythm: regular rate and regular rhythm Heart Sounds: + murmur (II/ systolic murmur LSB) Vessels: no JVD Extremities: no edema Gastrointestinal (Abdomen): normal bowel sounds, soft, nontender, no hepatosplenomegaly Skin: no rashes, warm and dry Neurologic: PERRL, EOMI, accommodation nl, no face palsy, no dysarthria Results & Data Vital Signs (Past 12 Hours) Vital Signs Temp Pulse Pulse Pulse Resp BP BP 06/26/24 13:28 63 06/26/24 12:38 59 L 15 139/75 06/26/24 08:23 68 16 136/83 06/26/24 07:20 58 L 18 128/74 06/26/24 05:00 56 L 14 136/81 06/26/24 04:27 62 18 141/91 H 06/26/24 04:19 62 16 141/91 H 06/26/24 04:19 63 95 H 06/26/24 02:54 63 06/26/24 02:48 63 14 132/73 06/26/24 02:48 06/26/24 02:31 36.6 C 65 167/87 H Pulse Ox O2 Del Method 06/26/24 13:28 06/26/24 12:38 96 Room Air 06/26/24 08:23 96 Room Air 06/26/24 07:20 97 Room Air 06/26/24 05:00 96 Room Air 06/26/24 04:27 93 Room Air 06/26/24 04:19 95 Room Air 06/26/24 04:19 96 Room Air 06/26/24 02:54 06/26/24 02:48 98 Room Air 06/26/24 02:48 Room Air 06/26/24 02:31 95 Room Air Laboratory Results Cardiac Enzymes 06/26/24 Range/Units 02:45 AST 22 (13-39) U/L Troponin I High Sens 7.5 (0-20) pg/ml CBC 06/26/24 Range/Units 02:45 WBC 4.50 L (4.8-10.8) K/ul RBC 4.67 L (4.70-6.10) M/uL Hgb 14.3 (14.0-18.0) g/dl Hct 41.2 L (42.0-52.0) % Plt Count 144 (130-400) K/uL Neut # (Auto) 1.76 (1.40-6.50) K/uL Lymph # (Auto) 2.11 (1.20-3.40) K/uL [place] # (Auto) 0.46 (0.11-0.59) K/uL Eos # (Auto) 0.14 (0.00-0.50) K/uL Baso # (Auto) 0.02 (0.00-0.20) K/uL Comprehensive Metabolic Panel 06/26/24 Range/Units 02:45 Sodium 140 (136-145) mmol/L Potassium 4.1 (3.5-5.1) mmol/L Chloride 108 H (98-107) mmol/L Carbon Dioxide 25 (21-32) mmol/L BUN 21 (6-23) mg/dl Creatinine 0.96 (0.6-1.4) mg/dl Glucose 123 H (70-99(Fasting)) mg/dl Calcium 8.9 (8.6-10.3) mg/dl AST 22 (13-39) U/L ALT 25 (7-52) U/L Alkaline Phosphatase 44 (34-104) U/L Total Protein 6.2 (6.0-8.3) gm/dl Albumin 4.2 (3.4-5.0) gm/dl Intake and Output 06/25/24 06/26/24 06/26/24 22:59 06:59 14:59 Intake Total 100 / 100 Output Total 0 / 0 Balance 100 / 100 Intake: IV 100 / 100 Magnesium Sulfate / D5w 1 gm In 100 / 100 100 ml @ 50 mls/hr IV ONE STA Rx#:[id number] Output: Urine 0 / 0 Other: Weight 112.4 kg Weight Measurement Method Chair Scale Diagnostic Findings Telemetry reviewed: NSR without arrhythmia. rare PVC EKG reviewed from admission dated 06/26/24: NSR non specific conduction delay Possible LVH No acute changes Laboratory Results WBC 4.50 K/ul (4.8-10.8) L 06/26/24 02:45 RBC 4.67 M/uL (4.70-6.10) L 06/26/24 02:45 Hgb 14.3 g/dl (14.0-18.0) 06/26/24 02:45 Hct 41.2 % (42.0-52.0) L 06/26/24 02:45 MCV 88.2 fL (80.0-100.0) 06/26/24 02:45 MCH 30.6 pg (25.0-34.0) 06/26/24 02:45 MCHC 34.7 g/dL (32.0-36.0) 06/26/24 02:45 RDW Std Deviation 38.4 fL (36.4-46.3) 06/26/24 02:45 RDW Coeff of Ama 11.9 % (11.5-14.5) 06/26/24 02:45 Plt Count 144 K/uL (130-400) 06/26/24 02:45 MPV 9.2 fL (9.4-12.4) L 06/26/24 02:45 Immature Gran % (Auto) 0.2 % 06/26/24 02:45 Neut % (Auto) 39.2 % 06/26/24 02:45 Lymph % (Auto) 46.9 % 06/26/24 02:45 [place] % (Auto) 10.2 % 06/26/24 02:45 Eos % (Auto) 3.1 % 06/26/24 02:45 Baso % (Auto) 0.4 % 06/26/24 02:45 Neut # (Auto) 1.76 K/uL (1.40-6.50) 06/26/24 02:45 Lymph # (Auto) 2.11 K/uL (1.20-3.40) 06/26/24 02:45 [place] # (Auto) 0.46 K/uL (0.11-0.59) 06/26/24 02:45 Eos # (Auto) 0.14 K/uL (0.00-0.50) 06/26/24 02:45 Baso # (Auto) 0.02 K/uL (0.00-0.20) 06/26/24 02:45 Immature Gran # (Auto) 0.01 K/uL (0.01-0.20) 06/26/24 02:45 Sodium 140 mmol/L (136-145) 06/26/24 02:45 Potassium 4.1 mmol/L (3.5-5.1) 06/26/24 02:45 Chloride 108 mmol/L (98-107) H 06/26/24 02:45 Carbon Dioxide 25 mmol/L (21-32) 06/26/24 02:45 Anion Gap 7 (3-11) 06/26/24 02:45 BUN 21 mg/dl (6-23) 06/26/24 02:45 Creatinine 0.96 mg/dl (0.6-1.4) 06/26/24 02:45 Est Cr Clr Drug Dosing 114.9 ml/min 06/26/24 02:45 eGFR 92.19 06/26/24 02:45 BUN/Creatinine Ratio 21.9 (10-20) H 06/26/24 02:45 Glucose 123 mg/dl (70-99(Fasting)) H 06/26/24 02:45 Estimat Average Glucose 126 mg/dl 06/26/24 02:45 Hemoglobin A1c 6.0 % (4.5-5.6) H 06/26/24 02:45 Calcium 8.9 mg/dl (8.6-10.3) 06/26/24 02:45 Magnesium 1.9 mg/dl (1.7-2.4) 06/26/24 02:45 Total Bilirubin 0.3 mg/dl (0.2-1.0) 06/26/24 02:45 AST 22 U/L (13-39) 06/26/24 02:45 ALT 25 U/L (7-52) 06/26/24 02:45 Alkaline Phosphatase 44 U/L (34-104) 06/26/24 02:45 Troponin I High Sens 7.5 pg/ml (0-20) 06/26/24 02:45 Total Protein 6.2 gm/dl (6.0-8.3) 06/26/24 02:45 Albumin 4.2 gm/dl (3.4-5.0) 06/26/24 02:45 Globulin 2.0 gm/dl (2.5-4.0) L 06/26/24 02:45 Albumin/Globulin Ratio 2.1 (0.9-2) H 06/26/24 02:45 TSH 2.958 uIu/ml (0.300-4.500) 06/26/24 02:45 Impressions Chest X-Ray 06/26/24 02:57 EXAM: XR chest 1V portable CLINICAL HISTORY: CHEST PAIN F TECHNIQUE: X-ray images of the chest were obtained in the AP portable projection. COMPARISON: 09/17/2022. FINDINGS: Pulmonary Parenchyma: Bilateral lower lobar atelectatic changes. No evidence of consolidation, collapse, or focal opacities. No pulmonary nodules identified. No evidence of pleural effusion or pleural thickening. Heart and Mediastinum: Increased cardiac size. Bilateral prominent hilar vascular markings may be related to congestion. Bony Thorax: Bony thorax appears intact without fractures or deformities. IMPRESSION: 1. Bilateral lower lobar atelectatic changes. 2. Increased cardiac size. 3. Bilateral prominent hilar vascular markings, may be related to congestion. 4. No acute cardiopulmonary abnormalities identified. 5. Unchanged study. Electronically signed by Jalil Rodriges 06-26-2024 03:45 AM Prior outpatient data reviewed: Echo report reviewed from January 2024: Interpretation Summary Abnormal transthoracic echocardiogram . Known s/p repair TOF and valve sparing aortic root replacement There is mild left atrial dilatation. The tricuspid valve insufficiency jet estimates normal RV pressures of 25mmHg + RA pressure. AICD wires are seen in the RA and RV LV size is normal. Mild LVH. Septal hypokinesis with VSD patch. Diastolic dysfunction by mitral inflow and tissue Doppler The right ventricle is normal in structure, size and function. There is no pulmonary valve stenosis There is trivial to mild pulmonary insufficiency. The ascending aorta is mildly dilated . ZIO report reviewed dated November 2023: Final Interpretation Indications: Nonsustained ventricular tachycardia, history of tetralogy of Fallot repair Duration: 13 days, 16 hours Preliminary Findings Prepared by SAL Li 05/14/24 Patient had a min HR of 48 bpm, max HR of 188 bpm, and avg HR of 72 bpm. Predominant underlying rhythm was Sinus Rhythm. First Degree AV Block was present. Bundle Branch Block/IVCD was present. 3 Ventricular Tachycardia runs occurred, the run with the fastest interval lasting 8 beats with a max rate of 188 bpm, the longest lasting 8 beats with an avg rate of 126 bpm. 1 run of Supraventricular Tachycardia occurred lasting 8 beats with a max rate of 145 bpm (avg 110 bpm). Isolated SVEs were rare (<1.0%), SVE Triplets were rare (<1.0%), and no SVE Couplets were present. Isolated VEs were rare (<1.0%, 07627), VE Couplets were rare (<1.0%, 106), and VE Triplets were rare (<1.0%, 2). Ventricular Bigeminy and Trigeminy were present. No patient marker or diary entries were recorded Impression: Sinus rhythm with first-degree AV block, right bundle-branch block average rate 72 beats per minute with 3 runs of ventricular tachycardia, longest 8 beats in duration Medications Administered Current Inpatient Medications Acetaminophen (Acetaminophen 325 Mg Tab) 650 mg PO QID PRN PRN Reason: pain/fever Stop: 07/26/24 04:31 Aspirin (Aspirin 81 Mg Ectab) 81 mg PO [facility] Stop: 07/26/24 08:59 Last Admin: 06/26/24 08:25 Dose: 81 mg Promethazine HCl (Phenergan) 6.25 mg in 50.25 mls @ 201 mls/hr IV Q6H PRN PRN Reason: Nausea And Vomiting Stop: 07/26/24 04:31 Lisinopril (Lisinopril 10 Mg Tab) 10 [facility] Stop: 07/26/24 08:59 Last Admin: 06/26/24 08:25 Dose: 10 mg Lorazepam (Lorazepam 0.5 Mg Tab) 0.5 mg PO TID PRN PRN Reason: Anxiety Stop: 07/26/24 04:31 Metoprolol Succinate (Metoprolol Succ 25mg Ext Rel Tab) 25 mg PO QPM [facility] Stop: 07/26/24 20:59 Metoprolol Succinate (Metoprolol Succ 50mg Ext Rel Tab) 50 mg [facility] Stop: 07/26/24 08:59 Last Admin: 06/26/24 08:25 Dose: 50 mg Multivitamins (Multivitamin Tab) 1 tab PO QAM [facility] Stop: 07/26/24 08:59 Last Admin: 06/26/24 08:25 Dose: 1 tab Nitroglycerin (Nitroglycerin Sl 0.4 Mg/Tab Tab) 0.4 mg SL Q5M PRN PRN Reason: Chest Pain Stop: 07/26/24 04:31 Tramadol HCl (Tramadol Hcl 50 Mg Tablet) 25 - 50 mg PO Q4H PRN PRN Reason: Pain Stop: 07/26/24 04:31
--- NOTE | 2024-06-26 14:44 | Communication Note ---
Date of Service: June 26, 2024 Patient seen and examined at bedside. He denies any chest pain, palpitation or dizziness overnight Telemetry review does not show any episode of arrhythmia overnight On physical examination; Constitutional: Alert oriented x 3; not in distress. Respiratory: normal respiratory effort, lungs clear to auscultation, no wheeze, rales, rhonchi. Normal insp/exp effort, no accessory muscle use Cardiovascular: RRR, no murmur, no edema Vessels: no JVD or carotid bruit Chest: normal inspection of chest Abdomen: normal bowel sounds, soft, nontender, no hepatosplenomegaly Musculoskeletal: no cyanosis or clubbing, extremities motor strength 5/5 Skin: no rashes, warm and dry normal turgor Neurologic: PERRL, EOMI, accommodation nl, no face palsy, no dysarthria CN's II- XI intact bilaterally and moves all extremities Psychiatric: A+Ox3, euthymic affect Assessment/plan Palpitation History of NSVT History of tetralogy of Fallot s/p repair Past medical history of congenital heart disease status post TOF and VSD repair, history of syncope with sustained VT status post ICD placement in 2001 s/p explanted. Patient admitted for palpitation, diaphoresis No arrhythmia noted on telemetry overnight Plan for ICD reimplantation tomorrow a.m. N.p.o. from midnight Continue home meds Please note the above document was generated using voice recognition software. It may contain grammatical, syntax or spelling errors. Any formal questions or concerns about the content, text or information contained within the body of this dictation should be directly addressed to the provider for clarification
[2024-06-26] MEDS: ACETAMINOPHEN 325 MG TAB PO PRN (17:09)
[2024-06-26] MEDS: LORazepam 0.5 MG TAB PO PRN (19:55)
[2024-06-26] MEDS: METOPROLOL SUCC 25MG EXT REL TAB PO SCH (20:53)
[2024-06-27 06:39] LABS: Basophils # (auto) 0.01 K/uL (0.00-0.20); Basophils % (auto) 0.3 %; Eosinophils # (auto) 0.12 K/uL (0.00-0.50); Eosinophils % (auto) 3.3 %; Hematocrit (blood only) 41.3 % (42.0-52.0); Hemoglobin 14.2 g/dl (14.0-18.0); Immature Granulocytes # (auto) 0.01 K/uL (0.01-0.20); Immature Granulocytes % (auto) 0.3 %; Lymphocytes # (auto) 1.57 K/uL (1.20-3.40); Mean Corpuscular Hemoglobin 30.3 pg (25.0-34.0); Mean Corpuscular Hgb Conc 34.4 g/dL (32.0-36.0); Mean Corpuscular Volume 88.1 fL (80.0-100.0); Mean Platelet Volume 9.1 fL (9.4-12.4); Monocytes # (auto) 0.36 K/uL (0.11-0.59); Monocytes % (auto) 9.9 %; Neutrophils # (auto) 1.58 K/uL (1.40-6.50); Neutrophils % (auto) 43.2 %; Platelet Count 135 K/uL (130-400); RDW Standard Deviation 38.8 fL (36.4-46.3); Red Blood Count 4.69 M/uL (4.70-6.10); White Blood Count 3.65 K/ul (4.8-10.8)
[2024-06-27 06:58] LABS: BUN Creatinine Ratio 22.7 (10-20); Calcium 8.8 mg/dl (8.6-10.3); Creatinine Clr Calc Pharmacy 165.5 ml/min; Potassium 4.1 mmol/L (3.5-5.1)
--- NOTE | 2024-06-27 07:54 | History & Physical Bridge Note ---
Date of Service June 27, 2024 History & Physical Bridge Note I have examined the patient, reviewed the History & Physical and in the interval since the performance of the History & Physical I have noted the following changes of clinical significance: Pt with tachypalpitations that awoke him from sleep; has a h/o VT with ICD but then had ICD generator removed with the leads still in; so he is recommended reimplant an ICD generator. Discussed the procedure and potential risks with the patient and he expressed an understanding and consents signed.
--- NOTE | 2024-06-27 07:54 | Pre Anesthesia Assessment ---
Date of Service June 27, 2024 Pre Sedation Assessment Vital Signs Temp Pulse Pulse Resp BP Pulse Ox Pulse Ox 06/27/24 07:29 71 16 148/85 H 96 06/27/24 03:31 36.4 C L 64 16 142/79 H 95 06/26/24 23:00 36.4 C L 61 18 126/77 95 06/26/24 19:35 36.5 C 45 L 20 159/74 H 95 06/26/24 17:57 63 06/26/24 17:04 36.4 C L 62 18 139/79 06/26/24 16:51 36.7 C 63 18 158/87 H 95 06/26/24 15:01 64 18 131/72 96 06/26/24 15:01 96 06/26/24 13:28 63 06/26/24 12:38 59 L 15 139/75 96 06/26/24 08:23 68 16 136/83 96 O2 Del Method O2 Del Method 06/27/24 07:29 Room Air 06/27/24 03:31 Room Air 06/26/24 23:00 Room Air 06/26/24 19:35 Room Air 06/26/24 17:57 06/26/24 17:04 06/26/24 16:51 Room Air 06/26/24 15:01 Room Air 06/26/24 15:01 Room Air 06/26/24 13:28 06/26/24 12:38 Room Air 06/26/24 08:23 Room Air Cardiovascular RRR, no murmur, no edema Respiratory normal respiratory effort, lungs clear to auscultation Pre-Sedation Airway Assessment Smoking Status: Never smoker Hx Sleep Apnea: No Hx Difficult Intubation: No Short, Thick Neck: No Thyromental Distance: > or= 3.5 Finger Breadths Oral Cavity: + WNL Mallampati Class: III ASA: ASA3 NPO Status Date of Last Intake of Fluids: 06/27/24 Time of Last Intake of Fluids: 18:00 Date of Last Intake of Solid Food: 06/27/24 Time of Last Intake of Solid Foods: 18:00 Procedure Planning Contraindications for Sedation: none Current Medications Reviewed: Yes Notes The planned sedation has been discussed with the patient. Informed Consent was obtained. I have identified the patient, determined the appropriateness of sedation and have assessed the patient immediately prior to the procedure. All medicine(s) and interventions are by my order.
[2024-06-27] MEDS: BUPIVACAINE 0.25% PF 30 ML VIAL ONE (08:41)
[2024-06-27] MEDS: ceFAZolin 330 MG/ML 1 GM VIAL ONE (08:42)
[2024-06-27] MEDS: MIDAZOLAM HCL 5 MG/ML 1 ML VIAL ONE (08:42)
[2024-06-27] MEDS: fentaNYL citrate PF 100 MCG/2 ML VIAL ONE (08:42)
[2024-06-27] MEDS: LIDOCAINE 1% LOCAL 20 ML VIAL ONE (08:42)
--- NOTE | 2024-06-27 09:01 | Post Anesthesia Assessment ---
Date of Service June 27, 2024 Post Sedation Assessment Vital Signs Temp Pulse Pulse Resp BP Pulse Ox Pulse Ox 06/27/24 07:29 71 16 148/85 H 96 06/27/24 03:31 36.4 C L 64 16 142/79 H 95 06/26/24 23:00 36.4 C L 61 18 126/77 95 06/26/24 19:35 36.5 C 45 L 20 159/74 H 95 06/26/24 17:57 63 06/26/24 17:04 36.4 C L 62 18 139/79 06/26/24 16:51 36.7 C 63 18 158/87 H 95 06/26/24 15:01 64 18 131/72 96 06/26/24 15:01 96 06/26/24 13:28 63 06/26/24 12:38 59 L 15 139/75 96 O2 Del Method O2 Del Method 06/27/24 07:29 Room Air 06/27/24 03:31 Room Air 06/26/24 23:00 Room Air 06/26/24 19:35 Room Air 06/26/24 17:57 06/26/24 17:04 06/26/24 16:51 Room Air 06/26/24 15:01 Room Air 06/26/24 15:01 Room Air 06/26/24 13:28 06/26/24 12:38 Room Air Recovery Score Activity: Moves 4 extremities Respiration: Deep Breath/Cough Circulation: +/-20% PreAnes Value Consciousness: Fully Awake Oxygen Saturation: > 92% On Room Air Discharge Sedation Level of Care: Fast Track Phase II Post Sedation Plan On clinical assessment, the patient appears to have tolerated the sedation without complications. Patient is recovering as anticipated. Patient will continue to be monitored by nursing and may be discharged when sedation discharge criteria are met per below protocol. Upon Completions of procedure up to 15 minutes continue every 5 minute vital signs and the P.A.R. score; then discharge to a Phase I or Fast Track to Phase II per the following guidelines: * Discharge Patient to appropriate Phase II area if PAR is 8 or greater or return to pre- procedure baseline. The post - procedure orders will be as directed. * If PAR score is less than 8 or not return to pre-procedure baseline then patient will follow Phase I monitoring till PAR is reached for Phase II. The Phase I may be done in procedure room or may call to secure a Phase I area. * If naloxone or flumazenil are used for reversal, hold in Phase I for continued monitoring from when last reversal dose was given for a minimum of 60 minutes or longer pending the nurse and/or physician discretion of patient condition before discharge to Phase II. Please call the Sedation Physician to re-evaluate and complete post-note for discharge to Phase II area. Do NOT discharge from procedure sedation or Phase 1 until post- sedation evaluation note is complete by procedure /sedation MD Sedation Discharge Instructions to be given to the patient at discharge to home.
[2024-06-27] MEDS: WATER, STERILE FOR INJ 10 ML VIAL ONE (10:17)
[2024-06-27] MEDS: VANCOMYCIN HCL 1000MG/20ML VIAL ONE (10:17)
--- NOTE | 2024-06-27 10:55 | Operative Report ---
Post Operative Report DICTATED BY:Loan Taylor D.O. DATE OF PROCEDURE: 06/27/2024 PREOPERATIVE DIAGNOSES: H/o sustained VT with prior dual ICD that was later explanted at pt's wishes but the leads remained capped, recurrent tachy- palpitations POSTOPERATIVE DIAGNOSIS: Same PROCEDURE: A dula chamber rate responsive implantable cardiac defibrillator generator insertion connected to prior pacing and defibrillator leads SURGEON: Loan Taylor DO ASSISTANTS: None. ANESTHESIA: Monitored conscious sedation administered under my supervision by Lorie Pedersen. Start time 08:18, end time 09:08, a total of 4mg of Versed and 100 mcg of fentanyl. INTRAVENOUS FLUIDS: 0 mL. CONTRAST: none ANTIBIOTICS: 2 grams of Ancef. ADDITIONAL MEDICATIONS: None BLOOD LOSS: 5 mL. URINE OUTPUT: Not applicable. SPECIMENS: None. FINDINGS: See below. DRAINS: None. COMPLICATIONS: None. CONDITION: Stable. INDICATIONS: This is a 58-year-old female who has a past medical history H/o syncope s/p EPS in 2001 at [facility] with inducible VT which lead to an ICD; s/p ICD then explanted in 2008 at the time of the generator change as per patient request, (One ICD shock inappropriate for ST), Tetrology of Fallot s/p repair at age 6, Sinus bradycardia, NSVT on zio patch, Aortic root and ascending aortic aneurysm s/p Aortic valve repair and hemiarch replacement 01/2008, HTN, HLD. Pt was admitted to [facility] due to tachy-palpitations that woke him from sleep. He was recommended a new defibrillator generator be connect to prior existing leads prior to hospital discharge. CONSENT: Consent was obtained prior to the patient going into the electrophysiology lab. The patient was informed of the risks, benefits, and alternatives to the procedure. Risks include, but not limited to, sudden cardiac , cardiac arrhythmias, cerebrovascular accident, myocardial infarction, injury to his blood vessels, chamber of the heart and lung, bleeding and infection. The patient understood these risks and agreed to the procedure as planned. Informed consent was obtained. DESCRIPTION OF PROCEDURE: The patient was brought into electrophysiology lab in a fasting state. He was connected to continuous cardiac monitoring. A timeout was performed to ensure the patient's identity and procedure correctly. He was prepped and draped in the left infraclavicular space in normal surgical standard fashion. Monitored conscious sedation was given throughout the procedure for the patient's comfort level. [place] precautions were maintained throughout the procedure. Prophylactic antibiotics were given prior to incision. A 20 mL of 1% lidocaine and bupivacaine mixture were given in the prior surgical incision. An incision was made over the prior surgical incision. Blunt dissection was performed down to the prior pacing and defibrillator leads.The caps on the leads were removed. The leads were tested intraoperatively see below for results. The pocket was flushed with copious amounts of vancomycin and saline wash and inspected for hemostasis. The leads were then attached to the pulse generator making sure the pins were in appropriate position, passed set screws, and set screws were all tightened. Pulse generator was then placed in the pocket, making sure the leads were lying flat beneath the device. The incision was closed in a 3-layer fashion using 2-0 Vicryl interrupted suture, followed by 3-0 Vicryl interrupted suture, followed by 4-0 Monocryl running stitch. Then a primaseal dressing was placed EQUIPMENT: 1. Pulse generator is a KeyView DR Model Number [id number] SN: [id number] 2. Right atrial lead, [employer] [id number] SN: [id number] implanted 08/01/2002 3. Defibrillator Lead; [employer] 0148/65cm SN: [id number] implanted 08/01/2002 INTRAPROCEDURAL FINDINGS: 1. Right atrial lead, P waves 1.9 millivolts, impedance 456 ohms, threshold 0.3 volts at 0.5 milliseconds. 2. Defibrillator Lead: R waves 6mV; impedance 1020 ohms; threshold 0.7V @ 0.5ms FINAL MEASUREMENTS THROUGH THE DEVICE: 1. Right atrial lead, P waves 2.1 millivolts, impedance 460 ohms, threshold 0.5 volt at 0.5 milliseconds. 2. Defibrillator Lead: R waves 7mV; impedance 1275 ohms; threshold 1V @ 0.5ms FINAL PARAMETERS: DDD 60/120, right atrial amplitude 1.5 volts, pulse width 0.5 milliseconds, sensitivity auto. RV defibrillator lead amplitude 1.25 volts, pulse width 0.5 milliseconds, sensitivity auto IMPRESSION: Successful new dual chamber rate responsive implantable cardiac defibrillator generator connected to prior existing capped pacing and defibrillator leads due to prior sustained VT with a h/o dual ICD that was explanted per patient's wishes back in 2007 with capping the leads. PLAN: Monitor the patient post-procedure and transfer back to telemetry. he can be discharged home today. He is to keep the dressing on and dry until his wound check next week.
--- NOTE | 2024-06-27 11:09 | Cardiology Progress Note ---
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 ICD was then explanted in 2008 per patient request and due to 1 inappropriate shock. 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 Recently patient has been having increased palpitations. he had outpatient ZIO which demonstrated several non sustained episodes of VT. He met with EP and it was decided to proceed with re-implantation of his ICD given risk factors for SCD. This was originally scheduled for May but then moved (per patient request) to Jul. In the meantime, patient was admitted last night for tachypalpitations. Etiology uncertain as symptoms had resolved upon presentation to the ER No arrhythmias noted overnight. HS troponin negative. Labs and electrolytes WNL. BP controlled Continue metoprolol, lisinopril and ASA. Case discussed with EP and Dr. Morris. Patient will have ICD re-implanted tomorrow while admitted at [facility]. Dr. Taylor aware. NPO after midnight. Maintain on telemetry. 06/27/2024 Uneventful night. Patient underwent pacer defibrillator implantation using existing leads without difficulty. Site healing well. Plan discharge later today after lunch. Arrangements being made for wound check and outpatient follow-up posthospitalization through [facility] No change in medications Admission and Anticipated Discharge Date Admission Date: June 26, 2024 Subjective Patient seen and examined post pacer defibrillator insertion. Patient tolerated procedure well. Eating breakfast at time of exam feels well. Minor incisional discomfort without bleeding. No arrhythmias overnight on telemetry Review of Systems Review of Systems: All systems reviewed & are unremarkable except as noted in Subjective Physical Exam Constitutional: WD/WN, vitals as above no acute distress Eyes: PERRL, conjunctivae normal, anicteric sclerae ENMT: external ear and nose normal, oropharynx normal Neck: trachea midline, no thyromegaly Respiratory: normal respiratory effort, lungs clear to auscultation Cardiovascular: Rate/Rhythm: regular rate and regular rhythm Heart Sounds: + murmur; no gallop Vessels: no JVD Chest (Breasts): Chest: + pacemaker (PCD pacemaker / defibrillator site bandaged, healing well) Musculoskeletal: no cyanosis or clubbing, extremities motor strength 5/5 Results & Data Vital Signs (Past 12 Hours) Vital Signs Temp Pulse Pulse Resp BP Pulse Ox O2 Del Method 06/27/24 11:05 54 L 06/27/24 11:03 36.9 C 68 16 142/78 H 94 Room Air 06/27/24 10:08 37.1 C 63 16 133/80 93 Room Air 06/27/24 09:45 63 16 123/75 94 Room Air 06/27/24 09:30 65 16 132/75 94 Room Air 06/27/24 09:15 68 16 134/76 93 Room Air 06/27/24 07:29 71 16 148/85 H 96 Room Air 06/27/24 03:31 36.4 C L 64 16 142/79 H 95 Room Air Laboratory Results Laboratory Results - last 24 hr 06/27/24 06:01 WBC 3.65 L RBC 4.69 L Hgb 14.2 Hct 41.3 L MCV 88.1 MCH 30.3 MCHC 34.4 RDW Std Deviation 38.8 RDW Coeff of Ama 12.0 Plt Count 135 MPV 9.1 L Immature Gran % (Auto) 0.3 Neut % (Auto) 43.2 Lymph % (Auto) 43.0 [place] % (Auto) 9.9 Eos % (Auto) 3.3 Baso % (Auto) 0.3 Neut # (Auto) 1.58 Lymph # (Auto) 1.57 [place] # (Auto) 0.36 Eos # (Auto) 0.12 Baso # (Auto) 0.01 Immature Gran # (Auto) 0.01 Sodium 140 Potassium 4.1 Chloride 108 H Carbon Dioxide 27 Anion Gap 5 BUN 15 Creatinine 0.66 D Est Cr Clr Drug Dosing 165.5 eGFR 109.40 BUN/Creatinine Ratio 22.7 H Glucose 111 H Calcium 8.8
[2024-06-27 12:41] VITALS: BP 136/79; PULSE 65; RESP 18; TEMP 98.6; O2SAT 95
--- NOTE | 2024-06-27 13:23 | Hospitalist Progress Note ---
Date of Service June 27, 2024 Assessment & Plan (1) Palpitations: Plan: Palpitations Secondary to nonsustained ventricular tachycardia on outpatient ZIO H/O VT S/P post ICD (2001) S/P explantation (2008) as per patient's request due to inappropriate shock S/P reimplantation of ICD by Dr. Taylor on 06/27/2024 Normal TSH No arrhythmias while hospitalized Monitor and replete electrolytes as needed Appreciate cardiology input Continue home dose of metoprolol Plan to be discharged home today Valvular heart disease (mild TR/NM) Tetralogy of Fallot s/p repair/aortic aneurysm repair Hyperlipidemia Hypertension Prediabetes: HbA1c 6.0 Continue home medications DVT Px: SCDs Code Status Full code Admission and Anticipated Discharge Date Admission Date: June 26, 2024 Subjective Patient is seen and examined at bedside Patient had pacer defibrillator insertion this morning Doing well postprocedure Denies any significant pain, nausea, vomiting, dyspnea, dizziness Discussed with cardiology today Plan to be discharged home today Review of Systems Review of Systems: All systems reviewed & are unremarkable except as noted in Subjective Physical Exam Physical Exam: Physical Exam: Vitals signs as noted above General Appearance:Moderately built and nourished, no apparent distress Head: normocephalic, Atraumatic Eyes: normal inspection, EOMI Neck: supple, Trachea midline Respiratory/Chest: Normal breath sounds, CTA, No accessory muscle use Cardiovascular: S1, S2, + murmur, +Pacer in bandage Abdomen/GI:Soft, Non tender, Bowel sounds present Extremities/Musculoskeletal:normal inspection, no edema Neurologic/Psych:AAOX3, grossly no focal neurological deficits Skin: normal color, warm Results & Data Results & Data Vital Signs (Past 12 Hours) Vital Signs Temp Pulse Pulse Resp BP Pulse Ox O2 Del Method 06/27/24 12:40 37 C 65 18 136/79 95 Room Air 06/27/24 11:05 54 L 06/27/24 11:03 36.9 C 68 16 142/78 H 94 Room Air 06/27/24 10:08 37.1 C 63 16 133/80 93 Room Air 06/27/24 09:45 63 16 123/75 94 Room Air 06/27/24 09:30 65 16 132/75 94 Room Air 06/27/24 09:15 68 16 134/76 93 Room Air 06/27/24 07:29 71 16 148/85 H 96 Room Air 06/27/24 03:31 36.4 C L 64 16 142/79 H 95 Room Air Laboratory Results Short CBC 06/27/24 Range/Units 06:01 WBC 3.65 L (4.8-10.8) K/ul Hgb 14.2 (14.0-18.0) g/dl Hct 41.3 L (42.0-52.0) % Plt Count 135 (130-400) K/uL BMP 06/27/24 06:01 Sodium 140 Potassium 4.1 Chloride 108 H Carbon Dioxide 27 BUN 15 Creatinine 0.66 D Glucose 111 H Calcium 8.8
--- NOTE | 2024-06-27 13:42 | Discharge Summary ---
Date of Service June 27, 2024 Admission HPI Per Admitting Provider History obtained from patient, family, and records. Medical history significant for history of VT status post ICD (2001) status post explantation (2008, as per patient request), valvular heart disease (mild TR/MN), tetralogy of Fallot s/p repair, aortic aneurysm repair, hyperlipidemia. Last confinement October 2021 for palpitations. G EPS specialist recommended ICD reimplantation with note of NSVT on outpatien t Zio patch monitor. Patient woke up early a.m. with palpitations, heart racing, irregular heartbeat sensation every third heartbeat. Patient felt sweaty/diaphoretic. No actual chest pain or SOB. Compliant with home medications. No unusual stress at home. Caffeine intake a little more than usual. No recent episode. Medical History as above Surgical History : ICD implantation, ICD removal, cholecystectomy, aortic aneurysm repair, tetralogy of Fallot repair, shoulder surgery, biceps tendon surgery groin hernia repair Family History : DM, heart disease Personal/Social history : Non-smoker, occasional EtOH intake, [employer] employee Admission Exam Per Admitting Provider GENERAL: Comfortable, obese, pleasant, no respiratory distress SKIN: Normal color, warm HEENT: [place] palpebral conjunctivae, no ptosis, moist buccal mucosa NECK : Supple, no tenderness CHEST : CTA, no tenderness HEART : RRR, no obvious murmurs ABDOMEN: Some distention, nontender EXTREMITIES : No LE swelling/tenderness, no other conspicuous deformities noted NEUROLOGIC : Coherent, no facial asymmetry, no other gross focality Principal Diagnosis Palpitations Paroxysmal nonsustained ventricular tachycardia Discharge Data Allergies Allergy/AdvReac Type Severity Reaction Status Date / Time GENERAL ANESTHESIA AdvReac Severe COMBATIVE Uncoded 03/30/23 09:23 Consultations 06/26/24 03:44 ED Decision to Admit Stat 06/26/24 07:22 Consult Cardiology Routine Procedures Performed Operation Date: 06/27/24 08:00 Actual Procedures p ICD Insertion Single or Dual - Loan Taylor DO Ordered Studies Laboratory Results WBC 3.65 K/ul (4.8-10.8) L 06/27/24 06:01 RBC 4.69 M/uL (4.70-6.10) L 06/27/24 06:01 Hgb 14.2 g/dl (14.0-18.0) 06/27/24 06:01 Hct 41.3 % (42.0-52.0) L 06/27/24 06:01 MCV 88.1 fL (80.0-100.0) 06/27/24 06:01 MCH 30.3 pg (25.0-34.0) 06/27/24 06:01 MCHC 34.4 g/dL (32.0-36.0) 06/27/24 06:01 RDW Std Deviation 38.8 fL (36.4-46.3) 06/27/24 06:01 RDW Coeff of Ama 12.0 % (11.5-14.5) 06/27/24 06:01 Plt Count 135 K/uL (130-400) 06/27/24 06:01 MPV 9.1 fL (9.4-12.4) L 06/27/24 06:01 Immature Gran % (Auto) 0.3 % 06/27/24 06:01 Neut % (Auto) 43.2 % 06/27/24 06:01 Lymph % (Auto) 43.0 % 06/27/24 06:01 [place] % (Auto) 9.9 % 06/27/24 06:01 Eos % (Auto) 3.3 % 06/27/24 06:01 Baso % (Auto) 0.3 % 06/27/24 06:01 Neut # (Auto) 1.58 K/uL (1.40-6.50) 06/27/24 06:01 Lymph # (Auto) 1.57 K/uL (1.20-3.40) 06/27/24 06:01 [place] # (Auto) 0.36 K/uL (0.11-0.59) 06/27/24 06:01 Eos # (Auto) 0.12 K/uL (0.00-0.50) 06/27/24 06:01 Baso # (Auto) 0.01 K/uL (0.00-0.20) 06/27/24 06:01 Immature Gran # (Auto) 0.01 K/uL (0.01-0.20) 06/27/24 06:01 Sodium 140 mmol/L (136-145) 06/27/24 06:01 Potassium 4.1 mmol/L (3.5-5.1) 06/27/24 06:01 Chloride 108 mmol/L (98-107) H 06/27/24 06:01 Carbon Dioxide 27 mmol/L (21-32) 06/27/24 06:01 Anion Gap 5 (3-11) 06/27/24 06:01 BUN 15 mg/dl (6-23) 06/27/24 06:01 Creatinine 0.66 mg/dl (0.6-1.4) D 06/27/24 06:01 Est Cr Clr Drug Dosing 165.5 ml/min 06/27/24 06:01 eGFR 109.40 06/27/24 06:01 BUN/Creatinine Ratio 22.7 (10-20) H 06/27/24 06:01 Glucose 111 mg/dl (70-99(Fasting)) H 06/27/24 06:01 Estimat Average Glucose 126 mg/dl 06/26/24 02:45 Hemoglobin A1c 6.0 % (4.5-5.6) H 06/26/24 02:45 Calcium 8.8 mg/dl (8.6-10.3) 06/27/24 06:01 Magnesium 1.9 mg/dl (1.7-2.4) 06/26/24 02:45 Total Bilirubin 0.3 mg/dl (0.2-1.0) 06/26/24 02:45 AST 22 U/L (13-39) 06/26/24 02:45 ALT 25 U/L (7-52) 06/26/24 02:45 Alkaline Phosphatase 44 U/L (34-104) 06/26/24 02:45 Troponin I High Sens 7.5 pg/ml (0-20) 06/26/24 02:45 Total Protein 6.2 gm/dl (6.0-8.3) 06/26/24 02:45 Albumin 4.2 gm/dl (3.4-5.0) 06/26/24 02:45 Globulin 2.0 gm/dl (2.5-4.0) L 06/26/24 02:45 Albumin/Globulin Ratio 2.1 (0.9-2) H 06/26/24 02:45 TSH 2.958 uIu/ml (0.300-4.500) 06/26/24 02:45 Impressions Chest X-Ray 06/26/24 02:57 EXAM: XR chest 1V portable CLINICAL HISTORY: CHEST PAIN JMF TECHNIQUE: X-ray images of the chest were obtained in the AP portable projection. COMPARISON: 09/17/2022. FINDINGS: Pulmonary Parenchyma: Bilateral lower lobar atelectatic changes. No evidence of consolidation, collapse, or focal opacities. No pulmonary nodules identified. No evidence of pleural effusion or pleural thickening. Heart and Mediastinum: Increased cardiac size. Bilateral prominent hilar vascular markings may be related to congestion. Bony Thorax: Bony thorax appears intact without fractures or deformities. IMPRESSION: 1. Bilateral lower lobar atelectatic changes. 2. Increased cardiac size. 3. Bilateral prominent hilar vascular markings, may be related to congestion. 4. No acute cardiopulmonary abnormalities identified. 5. Unchanged study. Electronically signed by Jalil Rodriges 06-26-2024 03:45 AM Hospital Course (1) Palpitations: Palpitations Secondary to nonsustained ventricular tachycardia on outpatient ZIO H/O VT S/P post ICD (2001) S/P explantation (2008) as per patient's request due to inappropriate shock S/P reimplantation of ICD by Dr. Taylor on 06/27/2024 Normal TSH No arrhythmias while hospitalized Monitor and replete electrolytes as needed Appreciate cardiology input Continue home dose of metoprolol Plan to be discharged home today Valvular heart disease (mild TR/MN) Tetralogy of Fallot s/p repair/aortic aneurysm repair Hyperlipidemia Hypertension Prediabetes: HbA1c 6.0 Continue home medications DVT Px: SCDs Code Status Full code Total Time Total Time Spent Total Time Spent (In Minutes): 46 minutes Discharge Plan Discharge Items Patient Disposition: Home - Self-Care Reason For Visit: PALPITATIONS Discharge Diagnosis: Palpitations Paroxysmal nonsustained ventricular tachycardia Condition on Discharge: Good Activity: Resume your previous activity Bathing: Keep incision dry Bathing Comment: keep dressing on & dry until wound check Non-emergency contact: Primary Care Provider and Repair [employer] Winder Helper Call non-emergency contact if: you have any medication questions, your symptoms worsen, your pain is concerning for you and you have a fever Follow-up/Referrals: Sofie Burgess MD [Primary Care Provider] - (Date & Time 07/02/2024 10:40 AM Provider [place], Sin Chris, DO Department General Internal Medicine [facility] ) Loan Taylor DO [Physician] - (The Cardiology office will contact you for a pacemaker check.) Diet: Heart Healthy Didi Attending Provider Instructions: Device and wound check at [facility] someone will call you with the time and day ACTIVITY RECOMMENDATIONS: * Do not raise affected arm over head for 2 weeks. SPECIAL CARE INSTRUCTIONS: * If bleeding occurs, apply direct pressure to area for 5 minutes. * Call your doctor if you have severe pain, fever, drainage or bleeding at site. * Keep dressing on and dry for 48 hours then remove. * Keep any scheduled doctor's appointment. * Implant Card - hand held device with website information given. SKIN IRRITATION: * You may experience some redness and/or swelling in the area where radiation was administered. If any skin irritation occurs, please contact your family physician. FOLLOW UP VISIT: Keep any scheduled doctor appointments. Add Animal Nurse Provider Instructions: Follow-up with your primary care physician Dr. Sofie Burgess and your design intern Dr. Loan Taylor as advised Seek immediate medical attention if your symptoms reoccur or worsen Please take all medications as instructed on discharge list below. Please call if you have any questions or problems. You can reach a [facility] hospitalist on duty at [facility] 24 hours a day by calling [phone] Pending Studies at Discharge: No Stand-Alone Forms: My [facility] [address], Smoking Cessation Medications and DC Order Prescriptions: Continued multivitamin Tablet 1 tab PO QAM metoprolol succinate [Toprol XL] 50 mg tablet extended release 24 hr 50 mg PO QAM aspirin 81 mg Tablet,Delayed Release (Dr/Ec) 81 mg PO QAM lisinopril 10 mg tablet 10 mg PO QAM metoprolol succinate 25 mg tablet extended release 24 hr 25 mg PO QPM pravastatin 40 mg tablet 40 mg PO QAM Discharge Orders: Discharge Order (Routine); Ordered 06/27/24 Ordered By: Gregorio Santana/Other Patient Handouts: Prediabetes, 5 Steps for Eating Healthier Admission Data Admit Date/Time: 06/26/24 04:02 Attending Provider: Gregorio Severino Admit Provider: Sin Castro Primary Care Provider: Sofie Burgess Other Providers: Sin Castro; Rebeka Middleton; Morgan Pires; iDnesh Morris; Reg Kidd; Shivam Krause; Pineda Quinn; Roxana Mix; Loan Taylor; Adelaida Mendes; Rebeka Reyna; Heron New; Joseluis Landon; Genny Tapia; Tamela Weaver; Kelsi Blount; Inga Prieto; Papi Rolle; Keara Rodriguez; Rema Ritter C
--- NOTE | 2024-06-28 16:08 | Electrocardiogram Report ---
Test Reason : Blood Pressure : */* mmHG Vent. Rate : 62 BPM Atrial Rate : 62 BPM P-R Int : 196 ms QRS Dur : 156 ms QT Int : 454 ms P-R-T Axes : 21 -2 30 degrees QTcB Int : 460 ms Normal sinus rhythm Non-specific intra-ventricular conduction block Minimal voltage criteria for LVH, may be normal variant ( [employer] product ) Abnormal ECG When compared with ECG of 26-Sep-2022 10:56, No significant change was found Confirmed by Eulogio Tariq ([id number]) on 06/28/2024 4:08:28 PM Referred By: REFERRED SELF Confirmed By: Eulogio Tariq
== END 2024-06-27 13:50 | disposition home or self-care (01) ==
LOC: ED 02:28 → EDINP 02:28 → SUATTDRO 04:02 → 2E 04:14
PROC: EPB.ICD (2024-06-27 08:00)